=== PATIENT | female | born 1935 | race Caucasian/White ===

== ENCOUNTER → 2016-11-26 | Outpatient (REF) | payer OTHER, MEDICARE ==
[~2016-11-26] MED LIST: /AMLO25TA PO; AMILORIDE; AMILORIDE PO; AMLO10TA PO; ASPI325T PO; BACL10TA2 OR; BACT800T5 PO; BRIM0.2S OU; CICL0.7739 TOP; CIPR500T19 OR; CIPR500T89 PO; FLAG500T OR; FLAG500T PO; HCTZ PO; HYDROCHLOROTHIAZIDE; LEVO88TA3 PO; LEVO88TA4 OR; LEVO88TA4 PO; LEVOTHYROXINE PO; MAG-TAB PO; NAPR220T PO; NORC5TAB PO; NYSTPOW4 TOP; OTC POTASSIUM PO; TRAM50TA2 OR; TYLE325T5 PO; VENL1TAB35 PO; VITA100037 PO
[2016-11-26 12:30] LABS: ANION GAP 9 MEQ/L (8-16); BLOOD UREA NITROGEN 10 MG/DL (7-18); CALCIUM LEVEL 9.6 MG/DL (8.8-10.2); CARBON DIOXIDE LEVEL 29 MEQ/L (21-32); CHLORIDE LEVEL 104 MEQ/L (98-107); GLOMERULAR FILTRATION RATE > 60.0 (>39); GLUCOSE, FASTING 136 MG/DL (83-110); POTASSIUM SERUM 4.3 MEQ/L (3.5-5.1); SODIUM LEVEL 142 MEQ/L (136-145)
== END ==
LOC: M LABDRAW1 11:20
PROVIDERS: ATTEND Internal Medicine
DX: E03.9 Hypothyroidism, unspecified (principal); E55.9 Vitamin D deficiency, unspecified

== ENCOUNTER 2017-05-08 10:15 | Outpatient (RCR) | payer MEDICARE ==
[~2017-05-08 10:15] MED LIST changes: -VITA100037 PO; +VITA100067 PO
== END 2017-05-11 ==
LOC: M PT 10:15
PROVIDERS: ATTEND Student in an Organized Health Care Education/Training Program
DX: Z51.89 Encounter for other specified aftercare (principal); S46.819D Strain of other muscles, fascia and tendons at shoulder and upper arm level, unspecified arm, subsequent encounter; X58.XXXD Exposure to other specified factors, subsequent encounter; Y93.9 Activity, unspecified; Y92.9 Unspecified place or not applicable; Y99.8 Other external cause status
CPT/HCPCS: 97110; 97140; 97162; G8981; G8982

== ENCOUNTER → 2017-12-02 | Outpatient (CLI) | payer MEDICARE ==
[2017-12-02 16:30] LABS: ANION GAP 4 MEQ/L (8-16); BLOOD UREA NITROGEN 14 MG/DL (7-18); CARBON DIOXIDE LEVEL 30 MEQ/L (21-32); CHLORIDE LEVEL 107 MEQ/L (98-107); CREATININE FOR GFR 0.85 MG/DL (0.55-1.30); GLOMERULAR FILTRATION RATE > 60.0 (>32); GLUCOSE, FASTING 97 MG/DL (70-100); POTASSIUM SERUM 4.7 MEQ/L (3.5-5.1); SODIUM LEVEL 141 MEQ/L (136-145)
== END ==
LOC: M LAB 15:08
DX: R73.9 Hyperglycemia, unspecified (principal); E03.9 Hypothyroidism, unspecified
CPT/HCPCS: 84443

== ENCOUNTER 2018-08-14 20:34 | Emergency (ER) | payer MEDICARE ==
[~2018-08-14] VITALS: Ht 165.1 cm; Wt 72.7 kg
[2018-08-14 21:51] VITALS: BP 172/92
--- NOTE | 2018-08-15 07:51 | REP ---
Right wrist series: Two views. History: Injury. Findings: AP and lateral views of the right wrist show diffuse osteopenia. There is mild widening of the navicular lunate interval consistent with degeneration of the navicular lunate ligament. 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 There is also navicular multangular joint space narrowing. No traumatic abnormality is seen. Impression: No fracture noted. Electronically Signed by Benji Michel MD 08/15/2018 07:42 A
--- NOTE | 2018-08-15 07:52 | REP ---
Left knee series: Four views. History: Injury. Findings: Four views of the left knee demonstrate nonarticular spurring at the superior pole of the patella. There is mild osteoarthritic articular spurring as well on the lateral radiograph. Diffuse osteopenia. No fracture or joint effusion seen. No sunrise view is included. Impression: Diffuse osteopenia. Mild osteoarthritic changes. No fracture noted. Electronically Signed by Benji Michel MD 08/15/2018 09:25 A
== END 2018-08-14 22:08 | disposition home or self-care (01) ==
LOC: M ED 20:34
DX: S60.211A Contusion of right wrist, initial encounter (principal); S80.01XA Contusion of right knee, initial encounter; W19.XXXA Unspecified fall, initial encounter; Y92.410 Unspecified street and highway as the place of occurrence of the external cause; Y93.9 Activity, unspecified; Y99.9 Unspecified external cause status; E03.9 Hypothyroidism, unspecified; K57.32 Diverticulitis of large intestine without perforation or abscess without bleeding; G32.81 Cerebellar ataxia in diseases classified elsewhere; Z91.81 History of falling; M17.12 Unilateral primary osteoarthritis, left knee; M85.862 Other specified disorders of bone density and structure, left lower leg; Z79.899 Other long term (current) drug therapy; Z88.1 Allergy status to other antibiotic agents; Z88.5 Allergy status to narcotic agent; Z88.0 Allergy status to penicillin; Z91.013 Allergy to seafood

== ENCOUNTER → 2018-10-29 | Outpatient (REF) | payer MEDICARE ==
[2018-10-29 14:05] LABS: FREE T4 1.53 NG/DL (0.76-1.46); RHEUMATOID FACTOR QUANT < 10.0 IU/ML (<15.0); TOTAL PROTEIN 7.3 GM/DL (6.4-8.2)
[2018-10-29 14:06] LABS: FOLATE > 24.0 NG/ML; VITAMIN B12 LEVEL 422 PG/ML
[2018-10-29 14:26] LABS: HEMOGLOBIN A1c 5.7 %
[2018-10-30 10:32] LABS: ALBUMIN 3.74 GM/DL (3.29-5.55); ALBUMIN % 51.3 % (55.8-66.1); ALPHA-1-GLOBULIN % 4.2 % (2.9-4.9); ALPHA-1-GLOBULINS 0.31 GM/DL (0.17-0.41); ALPHA-2-GLOBULINS 0.84 GM/DL (0.42-0.99); ALPHA-2-GLOBULINS % 11.5 % (7.1-11.8); BETA-1-GLOBULINS 0.51 GM/DL (0.28-0.60); BETA-2-GLOBULINS 0.53 GM/DL (0.19-0.55); BETA-2-GLOBULINS % 7.3 % (3.2-6.5); GAMMA GLOBULIN % 18.7 % (11.1-18.8); GAMMA GLOBULINS 1.37 GM/DL (0.65-1.58)
[2018-11-02 00:07] LABS: ANTI DOUBLE STRAND-DNA AB <1 IU/mL (0-9); ANTINUCLEAR ANTIBODIES DIRECT Positive (Negative); RNP ANTIBODIES 2.5 AI (0.0-0.9); SJOGREN'S ANTI SS-A <0.2 AI (0.0-0.9); SJOGREN'S ANTI SS-B <0.2 AI (0.0-0.9); SMITH ANTIBODIES <0.2 AI (0.0-0.9); VITAMIN B1 LEVEL WHOLE BLOOD 140.7 nmol/L (66.5-200.0); VITAMIN E(ALPHA TOCOPHEROL) 13.7 mg/L (9.0-29.0); VITAMIN E(GAMMA TOCOPHEROL) 1.3 mg/L (0.5-4.9)
[2018-11-04 10:20] LABS: DRVV SCREEN 42.8 SEC
== END ==
LOC: M LABNEURO 09:34
PROVIDERS: ATTEND Psychiatry & Neurology Neurology
DX: M10.9 Gout, unspecified (principal); G62.9 Polyneuropathy, unspecified

== ENCOUNTER → 2019-04-21 | Outpatient (CLI) | payer MEDICARE ==
[~2019-04-21] MED LIST changes: -/AMLO25TA PO; +NORV2TAB PO
[2019-04-21 15:06] LABS: BLOOD UREA NITROGEN 14 MG/DL (7-18); CALCIUM LEVEL 9.5 MG/DL (8.8-10.2); CARBON DIOXIDE LEVEL 28 MEQ/L (21-32); CHLORIDE LEVEL 103 MEQ/L (98-107); CREATININE FOR GFR 0.88 MG/DL (0.55-1.30); FREE T4 1.37 NG/DL (0.76-1.46); GLOMERULAR FILTRATION RATE > 60.0 (>32); GLUCOSE, FASTING 77 MG/DL (70-100); POTASSIUM SERUM 4.5 MEQ/L (3.5-5.1); SODIUM LEVEL 138 MEQ/L (136-145); TOTAL 25(OH) VITAMIN D 30.7 NG/ML (30.0-100.0)
== END ==
LOC: M WUC 12:45
PROVIDERS: ATTEND Student in an Organized Health Care Education/Training Program
DX: E03.9 Hypothyroidism, unspecified (principal); I10 Essential (primary) hypertension; E55.9 Vitamin D deficiency, unspecified; Z79.899 Other long term (current) drug therapy

== ENCOUNTER → 2020-01-14 | Outpatient (CLI) | payer MEDICARE ==
[~2020-01-14] MED LIST changes: +HYDR25TA PO; +IBUP1TAB6 PO; +LEVO75TA4 PO
--- NOTE | 2020-01-14 11:39 | REP ---
RIGHT RIB SERIES: Four views of the right ribs performed. No fracture or bone lesion is seen. An accompanying PA view of the chest demonstrates stable bibasilar interstitial fibrosis. The heart is mildly enlarged. There is calcification of the thoracic aorta. IMPRESSION: No evidence of right rib fracture. Electronically Signed by Casa Peñaloza MD 01/14/2020 07:43 P
== END ==
LOC: M RAD 10:43
PROVIDERS: ATTEND Physician Assistant
DX: R07.81 Pleurodynia (principal); J84.10 Pulmonary fibrosis, unspecified; I70.0 Atherosclerosis of aorta

== ENCOUNTER → 2020-02-17 | Outpatient (REF) | payer MEDICARE ==
[2020-02-17 15:35] LABS: BLOOD UREA NITROGEN 13 MG/DL (7-18); CALCIUM LEVEL 9.5 MG/DL (8.8-10.2); CARBON DIOXIDE LEVEL 29 MEQ/L (21-32); CHLORIDE LEVEL 107 MEQ/L (98-107); CREATININE FOR GFR 0.92 MG/DL (0.55-1.30); GLOMERULAR FILTRATION RATE > 60.0 (>32); GLUCOSE, FASTING 81 MG/DL (70-100); MAGNESIUM LEVEL 2.2 MG/DL (1.8-2.4); PHOSPHORUS LEVEL 3.7 MG/DL (2.5-4.9); POTASSIUM SERUM 4.6 MEQ/L (3.5-5.1); SODIUM LEVEL 140 MEQ/L (136-145); THYROID STIMULATING HORMONE 0.896 uIU/ML (0.358-3.740)
== END ==
LOC: M SFHCPLAZ 11:57
PROVIDERS: ATTEND Family Medicine
DX: R29.6 Repeated falls (principal); Z79.899 Other long term (current) drug therapy

== ENCOUNTER 2020-04-02 13:32 | Emergency (ER) | payer MEDICARE ==
--- NOTE | 2020-04-02 14:17 | REPVR ---
PROCEDURE INFORMATION: Exam: CT Head Without Contrast Exam date and time: 04/02/2020 2:10 PM Age: 84 years old Clinical indication: Dizziness; Additional info: CVA - nursing interventions must not delay CT TECHNIQUE: Imaging protocol: Computed tomography of the head without contrast. Radiation optimization: All CT scans at this facility use at least one of these dose optimization techniques: automated exposure control; mA and/or kV adjustment per patient size (includes targeted exams where dose is matched to clinical indication); or iterative reconstruction. Other technique: STROKE PROTOCOL was implemented. COMPARISON: CT Head without contrast 07/21/2019 8:38 AM FINDINGS: Brain: The brain demonstrates diffuse volume loss. There is white matter hypodensity most consistent with chronic small vessel ischemic change. There are also small areas of low attenuation in the basal ganglia related chronic lacunar infarctions. Ventricles: The ventricles and CSF spaces are proportionately enlarged. Bones/joints: No acute fracture. Sinuses: Visualized sinuses are unremarkable. No fluid levels. Mastoid air cells: Visualized mastoid air cells are well aerated. Vasculature: There is atherosclerotic disease involving the vertebral basilar system and cavernous ICAs. Soft tissues: Unremarkable. IMPRESSION: 1. Atrophy and the sequela prior small vessel ischemia. 2. No acute intracranial abnormality ASSESSMENT: ASPECTS ([place] Stroke Program Early CT Score) is 10. Electronically signed by: Rohan Davis On 04/02/2020 14:17:32 PM
--- NOTE | 2020-04-02 14:57 | REPVR ---
PROCEDURE INFORMATION: Exam: XR Chest, 1 View Exam date and time: 04/02/2020 2:15 PM Age: 84 years old Clinical indication: Shortness of breath; Additional info: CVA TECHNIQUE: Imaging protocol: XR of the chest Views: 1 view. COMPARISON: CR Ribs uni W-PA CHEST ONLY 01/14/2020 11:07 AM FINDINGS: Lungs: There is prominence of peripheral interstitial markings similar to previous examination consistent interstitial lung disease. There is no focal infiltrates. Pleural space: Unremarkable. No pleural effusion. No pneumothorax. Heart/Mediastinum: Unremarkable. No cardiomegaly. Bones/joints: Unremarkable. Intraperitoneal space: Surgical clips are seen within right upper quadrant. IMPRESSION: Interstitial lung disease. Electronically signed by: Elmer Joe On 04/02/2020 14:57:56 PM
[2020-04-02 15:19] LABS: BASO # 0.1 10^3/uL (0.0-0.2); BASO % 0.5 % (0.0-1.0); EOS # 0.2 10^3/uL (0.0-0.5); EOS % 2.3 % (0.0-3.0); HEMATOCRIT 38.7 % (36.0-47.0); HEMOGLOBIN 12.6 g/dl (12.0-15.5); LYMPH # 2.1 10^3/uL (1.5-5.0); LYMPH % 23.1 % (24.0-44.0); MEAN CORPUSCULAR HEMOGLOBIN 28.9 pg (27.0-33.0); MEAN CORPUSCULAR HGB CONC 32.6 g/dl (32.0-36.5); MEAN CORPUSCULAR VOLUME 88.8 fl (80.0-96.0); MONO % 11.2 % (0.0-5.0); NEUTROPHILS # 5.8 10^3/uL (1.5-8.5); NEUTROPHILS % 62.8 % (36.0-66.0); PLATELET COUNT, AUTOMATED 274 10^3/uL (150-450); RED BLOOD COUNT 4.36 10^6/uL (4.00-5.40); WHITE BLOOD COUNT 9.2 10^3/uL (4.0-10.0)
[2020-04-02 15:26] LABS: INR 0.96
[2020-04-02 15:27] LABS: PARTIAL THROMBOPLASTIN TIME 23.7 SECONDS (25.0-38.4)
[2020-04-02 15:53] LABS: ALBUMIN 3.2 GM/DL (3.2-5.2); ALT/SGPT 13 U/L (12-78); BILIRUBIN,DIRECT 0.1 MG/DL (0.0-0.2); BILIRUBIN,TOTAL 0.4 MG/DL (0.2-1.0); BLOOD UREA NITROGEN 13 MG/DL (7-18); CALCIUM LEVEL 9.2 MG/DL (8.8-10.2); CARBON DIOXIDE LEVEL 30 MEQ/L (21-32); CHLORIDE LEVEL 107 MEQ/L (98-107); CK-MB VALUE MASS 1.2 NG/ML (<3.6); CPK CREATINE PHOSPHOKINASE 67 U/L (26-192); CREATININE FOR GFR 0.83 MG/DL (0.55-1.30); GLOMERULAR FILTRATION RATE > 60.0 (>32); GLUCOSE, FASTING 82 MG/DL (70-100); MB/CK RELATIVE INDEX 1.79 (< OR =4); POTASSIUM SERUM 3.9 MEQ/L (3.5-5.1); SODIUM LEVEL 138 MEQ/L (136-145); THYROID STIMULATING HORMONE 0.586 uIU/ML (0.358-3.740); TOTAL PROTEIN 6.9 GM/DL (6.4-8.2); TROPONIN I < 0.02 NG/ML (< 0.10)
[2020-04-02] MEDS ORDERED: ASPI-1 PO (16:09)
[2020-04-02] MEDS ORDERED: ASPIRIN 325 MG TAB PO ONE (16:15)
[2020-04-02 16:33] VITALS: BP 168/78
== END 2020-04-02 16:37 | disposition home or self-care (01) ==
LOC: EDBD 13:32 → M ED 13:32
DX: G45.9 Transient cerebral ischemic attack, unspecified (principal); J84.9 Interstitial pulmonary disease, unspecified; E03.9 Hypothyroidism, unspecified; Z86.73 Personal history of transient ischemic attack (TIA), and cerebral infarction without residual deficits; Z79.82 Long term (current) use of aspirin; Z79.899 Other long term (current) drug therapy

== ENCOUNTER 2020-08-24 17:23 | Inpatient (IN) | payer MEDICARE ==
[~2020-08-24] VITALS: Ht 165.1 cm; Wt 69.8 kg
[~2020-08-24 17:23] MED LIST changes: +ASPI-1 PO
--- NOTE | 2020-08-24 18:24 | REPVR ---
PROCEDURE INFORMATION: Exam: CT Head Without Contrast Exam date and time: 08/24/2020 6:15 PM Age: 84 years old Clinical indication: Other: Neuro symptoms TECHNIQUE: Imaging protocol: Computed tomography of the head without contrast. Radiation optimization: All CT scans at this facility use at least one of these dose optimization techniques: automated exposure control; mA and/or kV adjustment per patient size (includes targeted exams where dose is matched to clinical indication); or iterative reconstruction. Other technique: STROKE PROTOCOL was implemented. COMPARISON: CT Head without contrast 04/02/2020 2:00 PM FINDINGS: Brain: There is no acute cortical infarction, intracranial hemorrhage or mass.There is moderate diffuse heterogeneity of the white matter, most consistent with microangiopathy. Probable prior lacunar infarctions right external capsule and anterior limb of left internal capsule. Cerebral ventricles: The ventricles appear enlarged, but not out of proportion to the degree of parenchymal volume loss. Bones/joints: Unremarkable. No acute fracture. Paranasal sinuses: Visualized sinuses are unremarkable. No fluid levels. Mastoid air cells: Visualized mastoid air cells are well aerated. Vasculature: Atherosclerosis. Soft tissues: Unremarkable. IMPRESSION: No acute intracranial findings. ASSESSMENT: ASPECTS ([place] Stroke Program Early CT Score) is 10. Electronically signed by: Lay Aguila On 08/24/2020 18:24:00 PM
--- NOTE | 2020-08-24 19:04 | REP ---
INDICATION: TIA. COMPARISON: 04/02/2020. TECHNIQUE: SINGLE PORTABLE AP VIEW OF THE CHEST WAS PERFORMED. FINDINGS: Diffuse interstitial fibrotic change appears stable. There is no definite superimposed acute infiltrate. The heart appears to be at the upper limits of normal in size. There is calcification of the thoracic aorta. The mediastinal silhouette is unchanged. IMPRESSION: Stable chronic interstitial changes. No definite superimposed acute infiltrate. <Electronically signed by Casa Peñaloza > 08/24/20 [id number]
[2020-08-24 19:05] LABS: BASO # 0.1 10^3/uL (0.0-0.2); BASO % 0.6 % (0.0-1.0); EOS # 0.3 10^3/uL (0.0-0.5); EOS % 2.7 % (0.0-3.0); HEMATOCRIT 38.8 % (36.0-47.0); HEMOGLOBIN 12.4 g/dl (12.0-15.5); LYMPH # 2.4 10^3/uL (1.5-5.0); MEAN CORPUSCULAR HEMOGLOBIN 29.1 pg (27.0-33.0); MEAN CORPUSCULAR VOLUME 91.1 fl (80.0-96.0); MONO % 10.4 % (0.0-5.0); NEUTROPHILS # 5.9 10^3/uL (1.5-8.5); NEUTROPHILS % 61.1 % (36.0-66.0); PLATELET COUNT, AUTOMATED 273 10^3/uL (150-450); RED BLOOD COUNT 4.26 10^6/uL (4.00-5.40); WHITE BLOOD COUNT 9.6 10^3/uL (4.0-10.0)
[2020-08-24 19:23] LABS: PROTHROMBIN TIME 13.4 SECONDS (12.5-14.3)
[2020-08-24 19:24] LABS: PARTIAL THROMBOPLASTIN TIME 26.2 SECONDS (24.2-38.5)
[2020-08-24 19:33] LABS: BLOOD UREA NITROGEN 18 MG/DL (7-18); CALCIUM LEVEL 9.3 MG/DL (8.8-10.2); CARBON DIOXIDE LEVEL 27 MEQ/L (21-32); CHLORIDE LEVEL 107 MEQ/L (98-107); CK-MB VALUE MASS 1.4 NG/ML (<3.6); CPK CREATINE PHOSPHOKINASE 55 U/L (26-192); GLOMERULAR FILTRATION RATE > 60.0 (>32); GLUCOSE, FASTING 88 MG/DL (70-100); MB/CK RELATIVE INDEX 2.55 (< OR =4); SODIUM LEVEL 139 MEQ/L (136-145); TROPONIN I < 0.02 NG/ML (< 0.10)
[2020-08-24] MEDS ORDERED: ASPI-559 PO (19:44)
--- OUTSIDE RECORDS SUMMARY | 2020-08-24 20:48 | CCD ---
Author Author [facility] Organization [facility] Address Unknown Phone Unavailable Care Team Providers Care Child And Family Services Worker Name Role Phone Micheline Cr Unavailable PROBLEMS Type Condition ICD9-CM Code [id number] Code Onset Dates Condition S tatus SNOMED Code Notes Problem Hypothyroidism, unspecified E03.9 Active 4093 0008 Problem Vitamin D deficiency, unspecified E55.9 Active 64741690 Problem Decreased independence with activities of daily living Z65.8 Active 724237351 Problem Essential (primary) hypertension I10 Active 45424664 Problem Recurrent syncope R55 Active 642141431 Problem Esophageal dysphagia R13.10 Active 16389851 Problem Frequent falls R29.6 Active 804251895 Problem Other secondary kyphosis, 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 Active 003709465 Problem Multilevel degenerative disc disease M53.9 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 64222715 Problem Osteopenia of multiple sites M85.89 Active 312 491908 Problem Decreased hearing, unspecified laterality H91.90 Active 597284494 Problem Chronic fatigue R53.82 Active 27862347 Problem Reflux esophagitis K21.0 Active 534541326 Problem Diverticulitis K57.92 Active 263666378 Problem TIA (transient ischemic attack) G45.9 Active 018957935 Problem Word finding difficulty R47.89 Active 01353798 6 Problem Driving safety issue Z91.89 Active 262943948 Problem Lichen sclerosus of female genitalia N90.4 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 275143656 Problem Pain in thoracic spine M54.6 Active 674392050 528713 Problem Dementia without behavioral disturbance, unspeci fied dementia type F03.90 Active 29654466 Problem Other chronic pain G89.29 Active 91684820 Problem Age-related osteoporosis without current pathological fracture M81.0 Active 072862144 Problem Patient refused evaluation or treatment Z53.20 Active 830092936 Problem 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 Ac tive 881669132 Problem Need for emotional support R45.89 Active 30331 6001 Problem Vaginal atrophy N95.2 Active 783534327 ALLERGIES Allergen (clinical drug ingredient) Drug/Non Drug Allergy do cumented on EMR Reaction Allergy Type Onset Date Status Shellfish Anaphylaxis Non Drug Allergy Active ciprofloxacin Cipro([facility] Code:[address]-90) memory loss, dizzy Drug A llergy Active Penicillin (For Allergies Use Only) Anaphylaxis Drug Aller gy Active codeine Codeine Sulfate([facility] Code:[address]-12) Confusion Drug Al lergy Active ENCOUNTERS from 1937 to 2020-08-01 Encounter Location Date Provider Diagnosis [address] [address] Jul, Micheline Shaye Vaginal atrophy N95.2 IMMUNIZATIONS Vaccine Route Administration Date Status Influenza (High Dose 65 & up) Unknown Apr 21, 2018 Ad ministered Influenza (High Dose 65 & up) Unknown May 27, 2017 Ad ministered Influenza (6mo & up) Fluzone Unknown Mar 16, 2014 Adm inistered Influenza (6mo & up) Fluzone Unknown Apr 21, 2013 Adm inistered zz*Influenza Preservative Free (36 months & up) Unknown Jul 03, 2017 Pending zz*Influenza Preservative Free (36 months & up) Unknown May 27, 2017 Pending zz*Influenza Preservative Free (36 months & up) Unknown May 27, 2017 Pending SOCIAL HISTORY Tobacco Use: Social History Observation Description Date Details (start date - stop date) Never Smoker Sex Assigned At : Social History Observation Description Sex Assigned At Unknown Audit Question Answer Notes Total Score: 0 Interpretation: Alcohol Education Drug and Alcohol Question Answer Notes Total Score: 0 Interpretation: No problems reported BMI Care Goal Follow-Up Question Answer Notes Above Normal BMI Follow-Up Giving encouragement to exercise Tobacco Use: Question Answer Notes Are you a: never smoker never smoker REASON FOR REFERRAL No Information VITAL SIGNS No information MEDICATIONS Medication SIG (Take, Route, Frequency, Duration) Notes Start Da te End Date Status Levothyroxine Sodium 75 MCG 1 tablet Orally Once a day 30 minutes before breakfast (NEEDS F/U APPT FOR MORE REFILLS) for 90 days Active Premarin 0.625 MG/GM 0.5g in vaginal and vaulva r egion Vaginal 21 days, off for 7 days for 21 day(s) Jul, Active Crestor 40 MG 1 tablet Orally Once a day for 30 day(s) May, Not-Taking Pantoprazole Sodium 40 MG 1 tablet Orally Once a day for 30 days Not-Taking Ankle Brace Bqmkly-[id number]-Keg - as directed On Right Ankle Daily for 4 weeks for 30 day(s) Apr, Active Acetaminophen 500 MG 1-2 tablet as needed Orally every 6 hrs Nov, Active Ibuprofen 600 MG 1 tablet with food or milk a s needed Orally Three times a day for 30 Days Jan, Active Scooter Chair as directed _ Daily for 9999 days Jan, Active Viactiv Flavor Glides 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 Aspirin 325 MG 1 tablet Orally Once a day for 30 day(s) Active Clobetasol Propionate 0.05 % 1 application Externally Twice a day, may decreased to daily use if symptoms improvement for 21 day(s) Jul, Active Hydrocortisone 2.5 % 1 application to affected ar ea: apply a thin film Externally Twice a day for 14 day(s) Apr, Active PROCEDURES No Information RESULTS No Results REASON FOR VISIT scripts MEDICAL (GENERAL) HISTORY Type Description Date Medical History Hypothyroidism Medical History Chronic back pain- Medical History Hx of Multiple Falls, Neurol ogic Gait Dysfunction/Cerebellar Dysfunction Medical History diverticulitis- resolved (12/2014) Medical History Pneumovax 2010 Medical History Refuses colonoscopy and mammogram Medical History Vitamin D Deficiency Medical History Reflux Esophagitis Medical History History of falling, presenting hazards t o health Medical History Neurologic gait dysfunction Surgical History Tonsillectomy Surgical History Appendectomy Surgical History Cholecystectomy Surgical History Hysterectomy d/t uterine cancer 1964 Surgical History cataracts, bilaterally and 03/2014 Hospitalization History diveritculitis 04/2012 Hospitalization History diverticulitis 11/15/13-11/19/13 Hospitalization History diverticulitis 12/10/2014 Hospitalization History fall Goals Section No Information Health Concerns No Information MEDICAL EQUIPMENT No Information MENTAL STATUS No Information FUNCTIONAL STATUS No Information ASSESSMENTS Encounter Date Diagnosis Assessment Notes Treatment Notes Treatm ent Clinical Notes Jul, Vaginal atrophy (ICD-10 - N95.2) PLAN OF TREATMENT Medication Medication Name Sig Start Date Stop Date Premarin 0.625 MG/GM 0.5g in vaginal and vaulva r egion Vaginal 21 days, off for 7 days for 21 day(s) Jul, Clobetasol Propionate 0.05 % 1 application Externally Twice a day, may decreased to daily use if symptoms improvement for 21 day(s) Jul, Next Appt Details Provider Name:Micheline Cr, 2020-08-16 09 :30:00 AM, [address], [place], [place], [id number], Insurance Providers Payer Name Payer Address Payer Phone Insured Name Patient Relati onship to Insured Coverage Start Date Coverage End Date [employer]NA MEDICARE [employer] [address] [facility] [id number] [employer] self
--- OUTSIDE RECORDS SUMMARY | 2020-08-24 20:48 | CCD ---
Author Author [facility] Organization [facility] Address Unknown Phone Unavailable Care Team Providers Care Driver Sales Name Role Phone Micheline Cr Unavailable PROBLEMS Type Condition ICD9-CM Code MDA77-MM Code Onset Dates Condition S tatus SNOMED Code Notes Problem Hypothyroidism, unspecified E03.9 Active 4093 0008 Problem Vitamin D deficiency, unspecified E55.9 Active 48315566 Problem Decreased independence with activities of daily living Z65.8 Active 976125726 Problem Essential (primary) hypertension I10 Active 79020178 Problem Recurrent syncope R55 Active 453911589 Problem Esophageal dysphagia R13.10 Active 60962418 Problem Frequent falls R29.6 Active 043041399 Problem Other secondary kyphosis, 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 Active 735781032 Problem Multilevel degenerative disc disease M53.9 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 77771661 Problem Osteopenia of multiple sites M85.89 Active 312 580686 Problem Decreased hearing, unspecified laterality H91.90 Active 117255405 Problem Chronic fatigue R53.82 Active 64108359 Problem Reflux esophagitis K21.0 Active 125177960 Problem Diverticulitis K57.92 Active 961303413 Problem TIA (transient ischemic attack) G45.9 Active 483083040 Problem Word finding difficulty R47.89 Active 06832935 6 Problem Driving safety issue Z91.89 Active 132729240 Problem Lichen sclerosus of female genitalia N90.4 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 337336884 Problem Pain in thoracic spine M54.6 Active 583221046 297837 Problem Dementia without behavioral disturbance, unspeci fied dementia type F03.90 Active 99799871 Problem Other chronic pain G89.29 Active 22907324 Problem Age-related osteoporosis without current pathological fracture M81.0 Active 481826125 Problem Patient refused evaluation or treatment Z53.20 Active 444232154 Problem 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 Ac tive 049215506 Problem Need for emotional support R45.89 Active 83068 6001 Problem Vaginal atrophy N95.2 Active 608212441 ALLERGIES Allergen (clinical drug ingredient) Drug/Non Drug Allergy do cumented on EMR Reaction Allergy Type Onset Date Status Shellfish Anaphylaxis Non Drug Allergy Active ciprofloxacin Cipro([facility] Code:[address]-31) memory loss, dizzy Drug A llergy Active Penicillin (For Allergies Use Only) Anaphylaxis Drug Aller gy Active codeine Codeine Sulfate([facility] Code:[address]-75) Confusion Drug Al lergy Active ENCOUNTERS from 1937 to 2020-08-10 Encounter Location Date Provider Diagnosis [facility] Resident [address] [place] [address] Jul, Micheline Cr Lichen sclerosus of female g enitalia N90.4 and Need for emotional support R45.89 IMMUNIZATIONS Vaccine Route Administration Date Status Influenza [...] REASON FOR REFERRAL No Information VITAL SIGNS Weight 156.2 lbs Jul, Height 65 in Jul, BMI 25.99 kg/m2 Jul, Heart Rate 80 /min Jul, Respiratory Rate 18 /min Jul, Temperature 98.0 degrees Fahrenheit Jul, Oximetry 96 Jul, Blood pressure systolic 146 mm Hg Jul, Blood pressure diastolic 82 mm Hg Jul, MEDICATIONS Medication SIG (Take, Route, Frequency, Duration) Notes Start Da te End Date Status Crestor 40 MG 1 tablet Orally Once a day for 30 day(s) May, Not-Taking Ankle Brace Dpxiys-sh-Kfe - as directed On Right Ankle Daily for 4 weeks for 30 day(s) Apr, Active Clobetasol Propionate 0.05 % 1 application Externally Twice a day, may decreased to daily use if symptoms improvement for 21 day(s) Jul, Active Acetaminophen 500 MG 1-2 tablet as needed Orally every 6 hrs Nov, Active Scooter Chair as directed _ Daily for 9999 days Jan, 20 Active Aspirin 325 MG 1 tablet Orally Once a day for 30 day(s) Active Viactiv Flavor Glides 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 Hydrocortisone 2.5 % 1 application to affected ar ea: apply a thin film Externally Twice a day for 14 day(s) Apr, Active Estradiol 0.1 MG/GM as directed applied in the v ulva and perineum area Vaginally apply once daily, two times in a week for 14 day(s) Jul, Active Pantoprazole Sodium 40 MG 1 tablet Orally Once a day for 30 days Not-Taking Premarin 0.625 MG/GM 0.5g in vaginal and vaulva r egion Vaginal 21 days, off for 7 days for 21 day(s) Jul, Active Levothyroxine Sodium 75 MCG 1 tablet Orally Once a day 30 minutes before breakfast (NEEDS F/U APPT FOR MORE REFILLS) for 90 days Active Ibuprofen 600 MG 1 tablet with food or milk a s needed Orally Three times a day for 30 Days Jan, Active PROCEDURES No Information RESULTS No Results REASON FOR VISIT follow up/paperwork for emptional support animal that we had received MEDICAL (GENERAL) HISTORY Type Description Date Medical [...] Treatment Notes Treatm ent Clinical Notes Jul, Lichen sclerosus of female genitalia (ICD-10 - N 90.4) External vulva/perineum inspection was done at the presence of the security test engineer. Pt's vulva and perineum lesions appeared to be mainly to be due to lichen sclerosus, and will start clobetasol ointment. Although there might be a component of atrophic vaginitis as well, given patient's history of TIA/CVA, will not start estrogen cream at this time for safety concerns. Patient has significant tenderness with light touch to vulva and perineum region, and she would like to hold off on pelvic/speculum/Bi-manual exam until next visit. Discussed with patient if symptoms worsen, she should call the clinic or seek immediate medical call, pt verbalized agreement. Jul, Need for emotional support (ICD-10 - R45.89) Received paperwork from [facility] for emotional support cat. Patient reported she never requested a emotional support cat, but that she has a dog who is initially a emotional support dog for 10.5 years. Emotional support paperwork for exisitiong dog was filled out for reasons of "company" per patient. Paperwork was filled out and to be faxed to [facility] PLAN OF TREATMENT Medication Medication Name Sig Start Date Stop Date Premarin 0.625 MG/GM 0.5g in vaginal and vaulva r egion Vaginal 21 days, off for 7 days for 21 day(s) Jul, Clobetasol Propionate 0.05 % 1 application Externally Twice a day, may decreased to daily use if symptoms improvement for 21 day(s) Jul, Estradiol 0.1 MG/GM as directed applied in the v ulva and perineum area Vaginally apply once daily, two times in a week for 14 day(s) Jul, Treatment Notes Assessment Notes Clinical Notes Lichen sclerosus of female genitalia Ext ernal vulva/perineum inspection was done at the presence of the security test engineer. Pt's vulva and perineum lesions appeared to be mainly to be due to lichen sclerosus, and will start clobetasol ointment. Although there might be a component of atrophic vaginitis as well, given patient's history of TIA/CVA, will not start estrogen cream at this time for safety concerns. Patient has significant tenderness with light touch to vulva and perineum region, and she would like to hold off on pelvic/speculum/Bi-manual exam until next visit. Discussed with patient if symptoms worsen, she should call the clinic or seek immediate medical call, pt verbalized agreement. Need for emotional support Received chung bah from [facility] for emotional support cat. Patient reported she never requested a emotional support cat, but that she has a dog who is initially a emotional support dog for 10.5 years. Emotional support paperwork for exisitiong dog was filled out for reasons of "company" per patient. Paperwork was filled out and to be faxed to [facility] Next Appt Details 2 Months Reason: Provider Name:Micheline Shaye, 2020-08-16 09 :45:00 AM, [address] [place], [address], Insurance Providers Payer Name Payer Address Payer Phone Insured Name Patient Relati onship to Insured Coverage Start Date Coverage End Date A[employer]NA MEDICARE [employer] [address] [facility] [id number] [employer] self
--- OUTSIDE RECORDS SUMMARY | 2020-08-24 20:48 | CCD ---
Author Author [facility] Organization [facility] Address Unknown Phone Unavailable Care Team Providers Care Porcelain Enamel Sprayer Name Role Phone Micheline Cr Unavailable PROBLEMS Type Condition ICD9-CM Code [id number] Code Onset Dates Condition S tatus SNOMED Code Notes Problem Hypothyroidism, unspecified E03.9 Active 4093 0008 Problem Vitamin D deficiency, unspecified E55.9 Active 35495674 Problem Decreased independence with activities of daily living Z65.8 Active 139097599 Problem Essential (primary) hypertension I10 Active 79029876 Problem Recurrent syncope R55 Active 901039929 Problem Esophageal dysphagia R13.10 Active 53229638 Problem Frequent falls R29.6 Active 575145244 Problem Other secondary kyphosis, 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 Active 749575753 Problem Multilevel degenerative disc disease M53.9 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 54924634 Problem Osteopenia of multiple sites M85.89 Active 312 547755 Problem Decreased hearing, unspecified laterality H91.90 Active 659321808 Problem Chronic fatigue R53.82 Active 57531764 Problem Reflux esophagitis K21.0 Active 801785054 Problem Diverticulitis K57.92 Active 647994282 Problem TIA (transient ischemic attack) G45.9 Active 516471592 Problem Word finding difficulty R47.89 Active 53653615 6 Problem Driving safety issue Z91.89 Active 350447646 Problem Lichen sclerosus of female genitalia N90.4 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 855645811 Problem Pain in thoracic spine M54.6 Active 152336024 202191 Problem Dementia without behavioral disturbance, unspeci fied dementia type F03.90 Active 74694321 Problem Other chronic pain G89.29 Active 90484830 Problem Age-related osteoporosis without current pathological fracture M81.0 Active 970511437 Problem Patient refused evaluation or treatment Z53.20 Active 554082223 Problem 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 Ac tive 629226569 Problem Need for emotional support R45.89 Active 37375 6001 Problem Vaginal atrophy N95.2 Active 005243636 ALLERGIES Allergen (clinical drug ingredient) Drug/Non Drug Allergy do cumented on EMR Reaction Allergy Type Onset Date Status Shellfish Anaphylaxis Non Drug Allergy Active ciprofloxacin Cipro([facility] Code:[address]-90) memory loss, dizzy Drug A llergy Active Penicillin (For Allergies Use Only) Anaphylaxis Drug Aller gy Active codeine Codeine Sulfate([facility] Code:[address]-10) Confusion Drug Al lergy Active ENCOUNTERS from 1937 to 2020-08-04 Encounter Location Date Provider Diagnosis [address] [address] Jul, Micheline Cr Perineal irritation in female L98.9 IMMUNIZATIONS Vaccine Route Administration Date Status Influenza [...] for 30 day(s) May, Not-Taking Ankle Brace Aicnul-fc-Ypn - as directed On Right Ankle Daily [...] Information RESULTS No Results REASON FOR VISIT Vaginal itch MEDICAL (GENERAL) HISTORY Type Description Date Medical [...] Treatment Notes Treatm ent Clinical Notes Jul, Perineal irritation in female (ICD-10 - L98.9) Lichen sclerosis vs atrophic vaginitis. Pt not responding to clobetasol ointment. Start estradiol cream. Pt reported significant pain in the perineum area with mild bleeding. Refer to [facility] for further evaluation. PLAN OF TREATMENT Medication Medication Name Sig [...] Jul, Treatment Notes Assessment Notes Clinical Notes Perineal irritation in female Lichen scl erosis vs atrophic vaginitis. Pt not responding to clobetasol ointment. Start estradiol cream. Pt reported significant pain in the perineum area with mild bleeding. Refer to [facility] for further evaluation. Next Appt Details Provider Name:Micheline Cr, 2020-08-16 09 :30:00 AM, [address] [place] [address], [address], Insurance Providers Payer Name Payer Address Payer Phone Insured Name Patient Relati onship to Insured Coverage Start Date Coverage End Date AETNA MEDICARE AETNA [employer] INSURANCE [employer] [address] [facility] [phone] ASTER PABLO self
--- OUTSIDE RECORDS SUMMARY | 2020-08-24 20:48 | CCD ---
Author Author [facility] Organization [facility] Address Unknown Phone Unavailable Care Team Providers Care Chlorine Cells Operator Name Role Phone Micheline Cr Unavailable PROBLEMS Type Condition ICD9-CM Code [id number] Code Onset Dates Condition S tatus SNOMED Code Notes Problem Hypothyroidism, unspecified E03.9 Active 4093 0008 Problem Vitamin D deficiency, unspecified E55.9 Active 70884443 Problem Decreased independence with activities of daily living Z65.8 Active 792111995 Problem Essential (primary) hypertension I10 Active 32141638 Problem Recurrent syncope R55 Active 895960192 Problem Esophageal dysphagia R13.10 Active 58007876 Problem Frequent falls R29.6 Active 772929477 Problem Other secondary kyphosis, 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 Active 600364278 Problem Multilevel degenerative disc disease M53.9 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 00868621 Problem Osteopenia of multiple sites M85.89 Active 312 994350 Problem Decreased hearing, unspecified laterality H91.90 Active 769771508 Problem Chronic fatigue R53.82 Active 28152634 Problem Reflux esophagitis K21.0 Active 690937842 Problem Diverticulitis K57.92 Active 249609705 Problem TIA (transient ischemic attack) G45.9 Active 619089263 Problem Word finding difficulty R47.89 Active 41570185 6 Problem Driving safety issue Z91.89 Active 354435690 Problem Lichen sclerosus of female genitalia N90.4 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 827925731 Problem Pain in thoracic spine M54.6 Active 082578968 113377 Problem Dementia without behavioral disturbance, unspeci fied dementia type F03.90 Active 19774334 Problem Other chronic pain G89.29 Active 41288395 Problem Age-related osteoporosis without current pathological fracture M81.0 Active 618124563 Problem Patient refused evaluation or treatment Z53.20 Active 227870634 Problem 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 Ac tive 400426478 Problem Need for emotional support R45.89 Active 44785 6001 Problem Vaginal atrophy N95.2 Active 806287377 ALLERGIES Allergen (clinical drug ingredient) Drug/Non Drug Allergy do cumented on EMR Reaction Allergy Type Onset Date Status Shellfish Anaphylaxis Non Drug Allergy Active ciprofloxacin Cipro([facility] Code:[address]-94) memory loss, dizzy Drug A llergy Active Penicillin (For Allergies Use Only) Anaphylaxis Drug Aller gy Active codeine Codeine Sulfate([facility] Code:[address]-88) Confusion Drug Al lergy Active ENCOUNTERS from 1937 to 2020-08-03 Encounter [place] [address] Jul, Micheline Cr IMMUNIZATIONS Vaccine Route Administration Date Status Influenza [...] day for 30 days Not-Taking Ankle Brace Pqrnhl-zm-Clb - as directed On Right Ankle Daily [...] Information RESULTS No Results REASON FOR VISIT Referral-Dr Joshua MEDICAL (GENERAL) HISTORY Type Description Date Medical [...] No Information FUNCTIONAL STATUS No Information ASSESSMENTS No Information PLAN OF TREATMENT Medication Medication Name Sig [...] Name:Micheline Cr, 2020-08-16 09 :30:00 AM, [address] [place], [address], Insurance Providers Payer Name Payer Address Payer Phone Insured Name Patient Relati onship to Insured Coverage Start Date Coverage End Date AETNA MEDICARE AETNA [employer] INSURANCE [facility] [address] [facility] [id number] ASTER PABLO self
--- OUTSIDE RECORDS SUMMARY | 2020-08-24 20:49 | CCD ---
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 Active 515906896 Problem Pain in thoracic spine M54.6 Active 620262331 335309 Problem Osteopenia of multiple sites M85.89 Active 312 414664 Problem Age-related osteoporosis without current pathological fracture M81.0 Active 809438409 Problem Multilevel degenerative disc disease M53.9 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 94694443 Problem Frequent falls R29.6 Active 112710265 Problem Diverticulitis K57.92 Active 157032096 Problem Reflux esophagitis K21.0 Active 385424244 Problem Esophageal dysphagia R13.10 Active 54776445 Problem Patient refused evaluation or treatment Z53.20 Active 264362903 Problem Decreased hearing, unspecified laterality H91.90 Active 308698365 Problem Hypothyroidism, unspecified E03.9 Active 4093 0008 Problem TIA (transient ischemic attack) G45.9 Active 199032500 Problem Chronic fatigue R53.82 Active 65115353 Problem Vitamin D deficiency, unspecified E55.9 Active 23124106 Problem Essential (primary) hypertension I10 Active 89330224 Problem Recurrent syncope R55 Active 618169437 Problem 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 Ac tive 340037951 Problem Word finding difficulty R47.89 Active 15478796 6 Problem Driving safety issue Z91.89 Active 805641598 ALLERGIES Allergen (clinical drug ingredient) Drug/Non Drug Allergy do cumented on EMR Reaction Allergy Type Onset Date Status Shellfish Anaphylaxis Non Drug Allergy Active ciprofloxacin Cipro([facility] Code:[address]-52) memory loss, dizzy Drug A llergy Active Penicillin (For Allergies Use Only) Anaphylaxis Drug Aller gy Active codeine Codeine Sulfate([facility] Code:[address]-02) Confusion Drug Al lergy Active ENCOUNTERS from 1937 to 2020-06-28 Encounter Location Date Provider Diagnosis [address] [address] Jun, Micheline Cr Hypothyroidism, unspecified E03.9 IMMUNIZATIONS Vaccine Route Administration Date Status Influenza [...] Notes Start Da te End Date Status Ibuprofen 600 MG 1 tablet with food or milk a s needed Orally Three times a day for 30 Days Jan, Active Scooter Chair as directed _ Daily for 9999 days Jan, Active Ankle Brace Xmzzhs-gs-Ysy - as directed On Right Ankle Daily for 4 weeks for 30 day(s) Apr, Active Crestor 40 MG 1 tablet Orally Once a day for 30 day(s) May, Active Hydrocortisone 2.5 % 1 application to affected ar ea: apply a thin film Externally Twice a day for 14 day(s) Apr, Active Viactiv Flavor Glides 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 Pantoprazole Sodium 40 MG 1 tablet Orally Once a day for 30 days Not-Taking Levothyroxine Sodium 75 MCG 1 tablet Orally Once a day 30 minutes before breakfast (NEEDS F/U APPT FOR MORE REFILLS) for 90 days Active Acetaminophen 500 MG 1-2 tablet as needed Orally every 6 hrs Nov, Active PROCEDURES No Information RESULTS No Results REASON FOR VISIT Levothyroxine Sodium 75 MCG Tablet 90 day supply MEDICAL (GENERAL) HISTORY Type Description Date Medical [...] Notes Treatment Notes Treatm ent Clinical Notes Jun, Hypothyroidism, unspecified (ICD-10 - E03.9) PLAN OF TREATMENT Medication Medication Name Sig Start Date Stop Date Levothyroxine Sodium 75 MCG 1 tablet Orally Once a day 30 minutes before breakfast (NEEDS F/U APPT FOR MORE REFILLS) for 90 days Insurance Providers Payer Name Payer Address Payer Phone Insured Name Patient Relati onship to Insured Coverage Start Date Coverage End Date AETNA MEDICARE AETNA [employer] [address] [facility] [phone] ASTER PABLO self
--- OUTSIDE RECORDS SUMMARY | 2020-08-24 20:49 | CCD ---
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 Active 259768147 Problem Pain in thoracic spine M54.6 Active 608897488 941791 Problem Osteopenia of multiple sites M85.89 Active 312 335072 Problem Age-related osteoporosis without current pathological fracture M81.0 Active 334528102 Problem Multilevel degenerative disc disease M53.9 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 93904624 Problem Frequent falls R29.6 Active 347745127 Problem Diverticulitis K57.92 Active 318304414 Problem Reflux esophagitis K21.0 Active 162182502 Problem Esophageal dysphagia R13.10 Active 53828875 Problem Patient refused evaluation or treatment Z53.20 Active 068191457 Problem Decreased hearing, unspecified laterality H91.90 Active 078563946 Problem Hypothyroidism, unspecified E03.9 Active 4093 0008 Problem TIA (transient ischemic attack) G45.9 Active 635258271 Problem Chronic fatigue R53.82 Active 88454943 Problem Vitamin D deficiency, unspecified E55.9 Active 25908194 Problem Essential (primary) hypertension I10 Active 09324345 Problem Recurrent syncope R55 Active 651480244 Problem 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 Ac tive 468562984 Problem Word finding difficulty R47.89 Active 57437121 6 Problem Driving safety issue Z91.89 Active 186801259 ALLERGIES Allergen (clinical drug ingredient) Drug/Non Drug Allergy do cumented on EMR Reaction Allergy Type Onset Date Status Shellfish Anaphylaxis Non Drug Allergy Active ciprofloxacin Cipro([facility] Code:[address]-85) memory loss, dizzy Drug A llergy Active Penicillin (For Allergies Use Only) Anaphylaxis Drug Aller gy Active codeine Codeine Sulfate([facility] Code:[address]-65) Confusion Drug Al lergy Active ENCOUNTERS from 1935 to 2020-06-14 Encounter Location Date Provider Diagnosis [facility] Res[facility] [address] [facility] [place] [address] Jun, Micheline Cr IMMUNIZATIONS Vaccine Route Administration Date [...] MEDICATIONS Medication SIG (Take, Route, Frequency, Duration) Start Date En d Date Status Ibuprofen 600 MG 1 tablet with food or milk a s needed Orally Three times a day for 30 Days Jan, Active Levothyroxine Sodium 75 MCG 1 tablet Orally Once a day 30 minutes before breakfast (NEEDS F/U APPT FOR MORE REFILLS) for 90 days Active Acetaminophen 500 MG 1-2 tablet as needed Orally every 6 hrs Nov Active Ankle Brace Rlfcuq-mv-Ohe - as directed On Right Ankle Daily for 4 weeks for 30 day(s) Apr, Active Scooter Chair as directed _ Daily for 9999 days Jan, Active Viactiv Flavor Glides Active Pantoprazole Sodium 40 MG 1 tablet Orally Once a day for 30 days Not-Taking Crestor 40 MG 1 tablet Orally Once a day for 30 day(s) May, Active Hydrocortisone 2.5 % 1 application to affected ar ea: apply a thin film Externally Twice a day for 14 day(s) Apr, 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 PROCEDURES No Information RESULTS No Results REASON FOR VISIT no-showed MEDICAL (GENERAL) HISTORY Type Description Date Medical [...] Information ASSESSMENTS No Information PLAN OF TREATMENT No Information Insurance Providers Payer Name Payer Address Payer Phone Insured Name Patient Relati onship to Insured Coverage Start Date Coverage End Date AETNA MEDICARE AETNA [employer] INSURANCE [employer] [address] [facility] [id number] ASTER PABLO self
--- OUTSIDE RECORDS SUMMARY | 2020-08-24 20:49 | CCD ---
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 Active 875411792 Problem Pain in thoracic spine M54.6 Active 783971387 160571 Problem Osteopenia of multiple sites M85.89 Active 312 136544 Problem Age-related osteoporosis without current pathological fracture M81.0 Active 275359029 Problem Multilevel degenerative disc disease M53.9 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 95585555 Problem Frequent falls R29.6 Active 887727316 Problem Diverticulitis K57.92 Active 518536216 Problem Reflux esophagitis K21.0 Active 958873531 Problem Esophageal dysphagia R13.10 Active 44370484 Problem Patient refused evaluation or treatment Z53.20 Active 682763988 Problem Decreased hearing, unspecified laterality H91.90 Active 610070517 Problem Hypothyroidism, unspecified E03.9 Active 4093 0008 Problem TIA (transient ischemic attack) G45.9 Active 828199335 Problem Chronic fatigue R53.82 Active 95993288 Problem Vitamin D deficiency, unspecified E55.9 Active 09407784 Problem Essential (primary) hypertension I10 Active 58639396 Problem Recurrent syncope R55 Active 798724100 Problem 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 Ac tive 680624178 Problem Word finding difficulty R47.89 Active 18040011 6 Problem Driving safety issue Z91.89 Active 979199146 ALLERGIES Allergen (clinical drug ingredient) Drug/Non Drug Allergy do cumented on EMR Reaction Allergy Type Onset Date Status Shellfish Anaphylaxis Non Drug Allergy Active ciprofloxacin Cipro([facility] Code:[address]-03) memory loss, dizzy Drug A llergy Active Penicillin (For Allergies Use Only) Anaphylaxis Drug Aller gy Active codeine Codeine Sulfate([facility] Code:[address]-46) Confusion Drug Al lergy Active ENCOUNTERS from 1935 to 2020-06-20 Encounter [place] [address] Jun, Micheline Cr IMMUNIZATIONS Vaccine Route Administration [...] every 6 hrs Nov Active Ankle Brace Uvmuiv-ek-Kin - as directed On Right Ankle Daily [...] Information RESULTS No Results REASON FOR VISIT [facility]V MEDICAL (GENERAL) HISTORY Type Description Date Medical [...] Date Coverage End Date AETNA MEDICARE AETNA [employer] INSURANCE [employer] [address] [facility] [phone] ASTER PABLO self
--- OUTSIDE RECORDS SUMMARY | 2020-08-24 20:49 | CCD ---
Author Author [facility] Organization 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 Active 341723334 Problem Pain in thoracic spine M54.6 Active 444574029 287762 Problem Osteopenia of multiple sites M85.89 Active 312 094353 Problem Age-related osteoporosis without current pathological fracture M81.0 Active 950769735 Problem Multilevel degenerative disc disease M53.9 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 34781661 Problem Frequent falls R29.6 Active 308662086 Problem Diverticulitis K57.92 Active 983769823 Problem Reflux esophagitis K21.0 Active 546438757 Problem Esophageal dysphagia R13.10 Active 64298874 Problem Patient refused evaluation or treatment Z53.20 Active 812813307 Problem Decreased hearing, unspecified laterality H91.90 Active 883671851 Problem Hypothyroidism, unspecified E03.9 Active 4093 0008 Problem TIA (transient ischemic attack) G45.9 Active 937637246 Problem Chronic fatigue R53.82 Active 14238793 Problem Vitamin D deficiency, unspecified E55.9 Active 57749436 Problem Essential (primary) hypertension I10 Active 21751202 Problem Recurrent syncope R55 Active 970743949 Problem 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 Ac tive 540394543 Problem Word finding difficulty R47.89 Active 58509427 6 Problem Driving safety issue Z91.89 Active 350133647 ALLERGIES Allergen (clinical drug ingredient) Drug/Non Drug Allergy do cumented on EMR Reaction Allergy Type Onset Date Status Shellfish Anaphylaxis Non Drug Allergy Active ciprofloxacin Cipro([facility] Code:[address]-42) memory loss, dizzy Drug A llergy Active Penicillin (For Allergies Use Only) Anaphylaxis Drug Aller gy Active codeine Codeine Sulfate([facility] Code:[address]-76) Confusion Drug Al lergy Active ENCOUNTERS from 1935 to 2020-07-01 Encounter Location Date Provider Diagnosis [address] [address] Jun, Micheline Cr Frequent falls R29.6 IMMUNIZATIONS Vaccine Route Administration Date Status Influenza [...] Daily for 9999 days Jan, 20 Active Ankle Brace Sehuwd-by-Gsg - as directed On Right Ankle Daily [...] Information RESULTS No Results REASON FOR VISIT Motorzied Scooter MEDICAL (GENERAL) HISTORY Type Description Date Medical [...] Treatment Notes Treatm ent Clinical Notes Jun, Frequent falls (ICD-10 - R29.6) PLAN OF TREATMENT Medication Medication Name Sig Start Date Stop Date Scooter Chair as directed _ Daily for 9999 days Jan, Levothyroxine Sodium 75 MCG 1 tablet Orally Once a day 30 minutes before breakfast (NEEDS F/U APPT FOR MORE REFILLS) for 90 days Insurance Providers Payer Name Payer Address Payer Phone Insured Name Patient Relati onship to Insured Coverage Start Date Coverage End Date AETNA MEDICARE AETNA [employer] INSURANCE [employer] [address] [facility] [id number] ASTER PABLO self
--- OUTSIDE RECORDS SUMMARY | 2020-08-24 20:49 | CCD ---
Author Author [facility] Organization [facility] Address Unknown Phone Unavailable Care Team Providers Care Chief Medical Officer Name Role Phone Micheline Cr Unavailable PROBLEMS Type Condition ICD9-CM Code [id number] Code Onset Dates Condition S tatus SNOMED Code Notes Problem Other chronic pain G89.29 Active 39072033 Problem Decreased independence with activities of daily living Z65.8 Active 364032840 Problem Other secondary kyphosis, 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 Active 723624560 Problem Pain in thoracic spine M54.6 Active 933510713 664897 Problem Osteopenia of multiple sites M85.89 Active 312 419264 Problem Age-related osteoporosis without current pathological fracture M81.0 Active 184413036 Problem Multilevel degenerative disc disease M53.9 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 41784225 Problem Frequent falls R29.6 Active 400251485 Problem Diverticulitis K57.92 Active 835203956 Problem Reflux esophagitis K21.0 Active 630378970 Problem Esophageal dysphagia R13.10 Active 91259738 Problem Patient refused evaluation or treatment Z53.20 Active 691321715 Problem Decreased hearing, unspecified laterality H91.90 Active 838444588 Problem Hypothyroidism, unspecified E03.9 Active 4093 0008 Problem TIA (transient ischemic attack) G45.9 Active 628123617 Problem Chronic fatigue R53.82 Active 00919066 Problem Vitamin D deficiency, unspecified E55.9 Active 54963882 Problem Essential (primary) hypertension I10 Active 41955837 Problem Recurrent syncope R55 Active 384539911 Problem 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 Ac tive 112338812 Problem Word finding difficulty R47.89 Active 71250609 6 Problem Driving safety issue Z91.89 Active 291245468 ALLERGIES Allergen (clinical drug ingredient) Drug/Non Drug Allergy do cumented on EMR Reaction Allergy Type Onset Date Status Shellfish Anaphylaxis Non Drug Allergy Active ciprofloxacin Cipro([facility] Code:[address]-93) memory loss, dizzy Drug A llergy Active Penicillin (For Allergies Use Only) Anaphylaxis Drug Aller gy Active codeine Codeine Sulfate([facility] Code:[address]-01) Confusion Drug Al lergy Active ENCOUNTERS from 1935 to 2020-06-15 Encounter [place] [address] 31 May, 2020 Micheline Cr IMMUNIZATIONS Vaccine Route Administration Date [...] every 6 hrs Nov Active Ankle Brace Wfqelb-ze-Qkv - as directed On Right Ankle Daily [...] Information RESULTS No Results REASON FOR VISIT Labs/neurology appt/DMV MEDICAL (GENERAL) HISTORY Type Description Date Medical [...] Date Coverage End Date AETNA MEDICARE AETNA [employer] INSURANCE [employer] [address] [facility] [id number] ASTER PABLO self
--- OUTSIDE RECORDS SUMMARY | 2020-08-24 20:49 | CCD ---
Author Author [facility] Organization [facility] Address Unknown Phone Unavailable Care Team Providers Care Plasticator Name Role Phone RUANO, AYANA Unavailable [phone] RUANO, AYANA Unavailable [phone] RUANO, AYANA Unavailable [phone] RUANO, AYANA Unavailable [phone] RUANO, AYANA Unavailable [phone] RUANO, AYANA Unavailable [phone] RUANO, AYANA Unavailable [phone] RUANO, AYANA Unavailable [phone] RUANO, AYANA Unavailable [phone] RUANO, AYANA Unavailable [phone] RUANO, AYANA Unavailable [phone] RUANO, AYANA Unavailable [phone] RUANO, AYANA Unavailable [phone] Re-disclosure Warning The records that you are about to access may contain information from federally-assisted alcohol or drug abuse programs. If such information is present, then the following federally mandated warning applies: This information has been disclosed to you from records protected by federal confidentiality rules (42 CFR part 2). The federal rules prohibit you from making any further disclosure of this information unless further disclosure is expressly permitted by the written consent of the person to whom it pertains or as otherwise permitted by 42 CFR part 2. A general authorization for the release of medical or other information is NOT sufficient for this purpose. The Federal rules restrict any use of the information to criminally investigate or prosecute any alcohol or drug abuse patient.The records that you are about to access may contain highly sensitive health information, the redisclosure of which is protected by Article 27-F of the [facility] Public Health law. If you continue you may have access to information: Regarding HIV / AIDS; Provided by facilities licensed or operated by the [facility] Office of Mental Health; or Provided by the [facility] Office for People With Developmental Disabilities. If such information is present, then the following [facility] mandated warning applies: This information has been disclosed to you from confidential records which are protected by state law. State law prohibits you from making any further disclosure of this information without the specific written consent of the person to whom it pertains, or as otherwise permitted by law. Any unauthorized further disclosure in violation of state law may result in a fine or long term sentence or both. A general authorization for the release of medical or other information is NOT sufficient authorization for further disc losure. Allergies and Adverse Reactions Type Description Substance Reaction Status Data Source(s ) Drug allergy Cipro Ciprofloxacin memory loss, dizzy Active eCW1 ([facility]) Shellfish Shellfish Shellfish Anaphylaxis Active eCW1 ([facility]) Codeine Sulfate Codeine Sulfate Codeine Sulfate Confusion Active eCW1 ([facility]) Encounters Encounter Providers Location Date Indications Data Source(s ) Unknown [address] [facility] [place] [address] 08/04/2020 12:00:00 AM EST eCW1 ([facility]) Unknown [address] [facility] [place] [address] 07/29/2020 12:00:00 AM EST eCW1 ([facility]) Outpatient [address] [facility] [place] [address] 07/25/2020 12:00:00 AM EST eCW1 ([facility]) [place] [address] [facility] [place] [address] 07/25/2020 12:00:00 AM EST eCW1 ([facility]) [place] [address] [facility] [place] [address] 07/24/2020 12:00:00 AM EST eCW1 ([facility]) [place] [address] [facility] [place] [address] 06/29/2020 12:00:00 AM EST eCW1 ([facility]) [place] [address] [facility] [place] [address] 06/27/2020 12:00:00 AM EST eCW1 ([facility]) [place] [address] [facility] [place] [address] 06/17/2020 12:00:00 AM EST eCW1 ([facility]) [place] [address] [facility] [place] [address] 06/14/2020 12:00:00 AM EST eCW1 ([facility]) [place] [address] [facility] [place] [address] 06/11/2020 12:00:00 AM EDT eCW1 ([facility]) [place] [address] [facility] [place] [address] 03/04/2020 12:00:00 AM EDT eCW1 ([facility]) Outpatient [address] [facility] [place] [address] 02/17/2020 12:00:00 AM EDT eCW1 ([facility]) Outpatient Referrer: AYANA RUANO 01/28/2020 05:14:00 AM EDT [facility] Outpatient [address] [facility] [place] [address] 01/20/2020 12:00:00 AM EDT eCW1 ([facility]) [place] [address] [facility] [place] [address] 01/14/2020 12:00:00 AM EDT eCW1 ([facility]) [facility] [place] [address] [facility] [place] [address] 12/21/2019 12:00:00 AM EDT eCW1 ([facility]) [facility] [place] [address] [facility] [place] [address] 09/23/2019 12:00:00 AM EST eCW1 ([facility]) [facility] [address] [place] [phone] 09/09/2019 12:00:00 AM EST eCW1 ([facility]) [facility] [place] [address] [facility] [place] [address] 07/31/2019 12:00:00 AM EST eCW1 ([facility]) [facility] Res[facility] [address] [place] [address] 07/29/2019 12:00:00 AM EST eCW1 ([facility]) Immunizations Vaccine Date Status Description Data Source(s) INFLUENZA VIRUS VACCINE QUADRIVAL SPLIT 2019-(65 YR UP)/PF 05/08/2020 12:00:00 AM EDT completed [facility] Medications Medication Brand Name Start Date Product Form Dose Route Admi nistrative Instructions Pharmacy Instructions Status Indications Reaction Description Data Source(s) Estradiol 0.1 MG/ML Vaginal Cream Estradiol 0.1 MG/GM Estrad iol 0.1 MG/GM 08/04/2020 12:00:00 AM EST active Estradiol 0.1 MG/GM eCW1 ([facility]) Estradiol 0.1 MG/ML Vaginal Cream Estradiol 0.1 MG/GM Estrad iol 0.1 MG/GM 08/04/2020 12:00:00 AM EST active Estradiol 0.1 MG/GM eCW1 ([facility]) 0.05 % 07/30/2020 12:00:00 AM EST ointment 15 APPLY TO AFFECTED AREA(S) TWO TIMES A DAY MAY DECREASE TO DAILY IF SYMPTOMS IMPROVE APPLY TO AFFECTED AREA(S) TWO TIMES A DAY MAY DECREASE TO DAILY IF SYMPTOMS IMPROVE SOLD: 08/01/2020 [facility] Clobetasol Propionate 0.0005 MG/MG Topic al Ointment Clobetasol Propionate 0.05 % Clobetasol Propionate 0.05 % 07/29/2020 12:00:00 AM EST 1.0 {application} active Clobetasol Propionate 0.05 % eCW1 ([facility]) Clobetasol Propionate 0.0005 MG/MG Topic al Ointment Clobetasol Propionate 0.05 % Clobetasol Propionate 0.05 % 07/29/2020 12:00:00 AM EST 1.0 {application} active Clobetasol Propionate 0.05 % eCW1 ([facility]) Clobetasol Propionate 0.0005 MG/MG Topic al Ointment Clobetasol Propionate 0.05 % Clobetasol Propionate 0.05 % 07/29/2020 12:00:00 AM EST 1.0 {application} active Clobetasol Propionate 0.05 % eCW1 ([facility]) Clobetasol Propionate 0.0005 MG/MG Topic al Ointment Clobetasol Propionate 0.05 % Clobetasol Propionate 0.05 % 07/29/2020 12:00:00 AM EST 1.0 {application} active Clobetasol Propionate 0.05 % eCW1 ([facility]) Clobetasol Propionate 0.0005 MG/MG Topic al Ointment Clobetasol Propionate 0.05 % Clobetasol Propionate 0.05 % 07/29/2020 12:00:00 AM EST 1.0 {application} active Clobetasol Propionate 0.05 % eCW1 ([facility]) Estrogens, Conjugated (RETIREMENT) 0.625 MG/ML Vaginal Cream [Premarin] Premarin 0.625 MG/GM Premarin 0.625 MG/GM 07/25/2020 12:00:00 AM EST active Premarin 0.625 MG/GM eCW1 ([facility]) Estrogens, Conjugated (RETIREMENT) 0.625 MG/ML Vaginal Cream [Premarin] Premarin 0.625 MG/GM Premarin 0.625 MG/GM 07/25/2020 12:00:00 AM EST active Premarin 0.625 MG/GM eCW1 ([facility]) Estrogens, Conjugated (RETIREMENT) 0.625 MG/ML Vaginal Cream [Premarin] Premarin 0.625 MG/GM Premarin 0.625 MG/GM 07/25/2020 12:00:00 AM EST active Premarin 0.625 MG/GM eCW1 ([facility]) Estrogens, Conjugated (RETIREMENT) 0.625 MG/ML Vaginal Cream [Premarin] Premarin 0.625 MG/GM Premarin 0.625 MG/GM 07/25/2020 12:00:00 AM EST active Premarin 0.625 MG/GM eCW1 ([facility]) Estrogens, Conjugated (RETIREMENT) 0.625 MG/ML Vaginal Cream [Premarin] Premarin 0.625 MG/GM Premarin 0.625 MG/GM 07/25/2020 12:00:00 AM EST active Premarin 0.625 MG/GM eCW1 ([facility]) 75 mcg 06/27/2020 12:00:00 AM EST tablet 90 TAKE ONE TABLET BY MOUTH EVERY DAY DIRECTED TAKE ONE TABLET BY MOUTH EVERY DAY DIRECTED SOLD: 020 [facility] Rosuvastatin calcium 40 MG Oral Tablet [Crestor] Crestor 40 MG Crestor 40 MG 06/03/2020 12:00:00 AM EDT 1.0 {tablet} suspended Crestor 40 MG eCW1 ([facility]) Rosuvastatin calcium 40 MG Oral Tablet [Crestor] Crestor 40 MG Crestor 40 MG 06/03/2020 12:00:00 AM EDT 1.0 {tablet} active Crestor 40 MG eCW1 ([facility]) Rosuvastatin calcium 40 MG Oral Tablet [Crestor] Crestor 40 MG Crestor 40 MG 06/03/2020 12:00:00 AM EDT 1.0 {tablet} suspended Crestor 40 MG eCW1 ([facility]) Rosuvastatin calcium 40 MG Oral Tablet [Crestor] Crestor 40 MG Crestor 40 MG 06/03/2020 12:00:00 AM EDT 1.0 {tablet} active Crestor 40 MG eCW1 ([facility]) Rosuvastatin calcium 40 MG Oral Tablet [Crestor] Crestor 40 MG Crestor 40 MG 06/03/2020 12:00:00 AM EDT 1.0 {tablet} active Crestor 40 MG eCW1 ([facility]) Rosuvastatin calcium 40 MG Oral Tablet [Crestor] Crestor 40 MG Crestor 40 MG 06/03/2020 12:00:00 AM EDT 1.0 {tablet} suspended Crestor 40 MG eCW1 ([facility]) Rosuvastatin calcium 40 MG Oral Tablet [Crestor] Crestor 40 MG Crestor 40 MG 06/03/2020 12:00:00 AM EDT 1.0 {tablet} suspended Crestor 40 MG eCW1 ([facility]) Rosuvastatin calcium 40 MG Oral Tablet [Crestor] Crestor 40 MG Crestor 40 MG 06/03/2020 12:00:00 AM EDT 1.0 {tablet} active Crestor 40 MG eCW1 ([facility]) Rosuvastatin calcium 40 MG Oral Tablet [Crestor] Crestor 40 MG Crestor 40 MG 06/03/2020 12:00:00 AM EDT 1.0 {tablet} suspended Crestor 40 MG eCW1 ([facility]) Rosuvastatin calcium 40 MG Oral Tablet [Crestor] Crestor 40 MG Crestor 40 MG 06/03/2020 12:00:00 AM EDT 1.0 {tablet} active Crestor 40 MG eCW1 ([facility]) 600 mg 01/21/2020 12:00:00 AM EDT tablet 90 TAKE ONE TABLET BY MOUTH WITH FOOD OR MILK NEEDED THREE TIMES A DAY TAKE ONE TABLET BY MOUTH WITH FOOD OR MILK NEEDED THREE TIMES A DAY SOLD: 01/26/2020 [facility] Ibuprofen 600 MG Oral Tablet Ibuprofen 600 MG 01/20/2020 12:00:00 AM E DT active Ibuprofen 600 MG eCW1 ([facility]) Ibuprofen 600 MG Oral Tablet Ibuprofen 600 MG 01/20/2020 12:00:00 AM E DT active Ibuprofen 600 MG eCW1 ([facility]) Ibuprofen 600 MG Oral Tablet Ibuprofen 600 MG 01/20/2020 12:00:00 AM E DT active Ibuprofen 600 MG eCW1 ([facility]) Ibuprofen 600 MG Oral Tablet Ibuprofen 600 MG 01/20/2020 12:00:00 AM E DT active Ibuprofen 600 MG eCW1 ([facility]) Ibuprofen 600 MG Oral Tablet Ibuprofen 600 MG 01/20/2020 12:00:00 AM E DT active Ibuprofen 600 MG eCW1 ([facility]) Scooter Chair UNK 01/20/2020 12:00:00 AM EDT acti ve Scooter Chair eCW1 ([facility]) Scooter Chair UNK 01/20/2020 12:00:00 AM EDT acti ve Scooter Chair eCW1 ([facility]) Ibuprofen 600 MG Oral Tablet Ibuprofen 600 MG 01/20/2020 12:00:00 AM E DT active Ibuprofen 600 MG eCW1 ([facility]) Ibuprofen 600 MG Oral Tablet Ibuprofen 600 MG 01/20/2020 12:00:00 AM E DT active Ibuprofen 600 MG eCW1 ([facility]) Scooter Chair UNK 01/20/2020 12:00:00 AM EDT acti ve Scooter Chair eCW1 ([facility]) Ibuprofen 600 MG Oral Tablet Ibuprofen 600 MG 01/20/2020 12:00:00 AM E DT active Ibuprofen 600 MG eCW1 ([facility]) Scooter Chair UNK 01/20/2020 12:00:00 AM EDT acti ve Scooter Chair eCW1 ([facility]) Ibuprofen 600 MG Oral Tablet Ibuprofen 600 MG 01/20/2020 12:00:00 AM E DT active Ibuprofen 600 MG eCW1 ([facility]) Scooter Chair UNK 01/20/2020 12:00:00 AM EDT acti ve Scooter Chair eCW1 ([facility]) Scooter Chair UNK 01/20/2020 12:00:00 AM EDT acti ve Scooter Chair eCW1 ([facility]) Scooter Chair UNK 01/20/2020 12:00:00 AM EDT acti ve Scooter Chair eCW1 ([facility]) Scooter Chair UNK 01/20/2020 12:00:00 AM EDT acti ve Scooter Chair eCW1 ([facility]) Scooter Chair UNK 01/20/2020 12:00:00 AM EDT acti ve Scooter Chair eCW1 ([facility]) Ibuprofen 600 MG Oral Tablet Ibuprofen 600 MG 01/20/2020 12:00:00 AM E DT active Ibuprofen 600 MG eCW1 ([facility]) Scooter Chair UNK 01/20/2020 12:00:00 AM EDT acti ve Scooter Chair eCW1 ([facility]) Scooter Chair UNK 01/20/2020 12:00:00 AM EDT acti ve Scooter Chair eCW1 ([facility]) Ibuprofen 600 MG Oral Tablet Ibuprofen 600 MG 01/20/2020 12:00:00 AM E DT active Ibuprofen 600 MG eCW1 ([facility]) Ibuprofen 600 MG Oral Tablet Ibuprofen 600 MG 01/20/2020 12:00:00 AM E DT active Ibuprofen 600 MG eCW1 ([facility]) Scooter Chair UNK 01/20/2020 12:00:00 AM EDT acti ve Scooter Chair eCW1 ([facility]) Ibuprofen 600 MG Oral Tablet Ibuprofen 600 MG 01/20/2020 12:00:00 AM E DT active Ibuprofen 600 MG eCW1 ([facility]) Scooter Chair UNK 01/20/2020 12:00:00 AM EDT acti ve Scooter Chair eCW1 ([facility]) 75 mcg 09/25/2019 12:00:00 AM EST tablet 90 TAKE ONE TABLET BY MOUTH EVERY DAY 30 MINUTES BEFORE BREAKFAST TAKE ONE TABLET BY MOUTH EVERY DAY 30 TN NUTES BEFORE BREAKFAST SOLD: 09/26/2019 [facility] 75 mcg 09/25/2019 12:00:00 AM EST tablet 90 TAKE ONE TABLET BY MOUTH EVERY DAY 30 MINUTES BEFORE BREAKFAST TAKE ONE TABLET BY MOUTH EVERY DAY 30 TN NUTES BEFORE BREAKFAST SOLD: 03/28/2020 [facility] 75 mcg 09/25/2019 12:00:00 AM EST tablet 90 TAKE ONE TABLET BY MOUTH EVERY DAY 30 MINUTES BEFORE BREAKFAST TAKE ONE TABLET BY MOUTH EVERY DAY 30 TN NUTES BEFORE BREAKFAST SOLD: 12/21/2019 [facility] 25 mg 07/23/2019 12:00:00 AM EST tablet 9 TAKE ONE TABLET BY MOUTH EVERY 8 HOURS TAKE ONE TABLET BY MOUTH EVERY 8 HOURS SOLD: 08/23/2019 [facility] Insurance Providers Payer name Policy type / Coverage type Policy ID Covered constitution party ID Covered constitution party's relationship to lo Policy Lo Plan Information AETNA MEDICARE [id number] SP [id number] AETNA MEDICARE O [id number] S [id number] AETNA MEDICARE [id number] SP [id number] MEDICARE COMPLETE [id number] SP ME [id number] MEDICARE [id number] SP [id number] MEDICARE COMPLETE [id number] SP [id number] MEDICARE COMPLETE [id number] SP [id number] ANSI-Medicare Part B [id number] ANSI-Medicare Part B [id number] MEDICARE UNK SP [id number] ANSI-Medicare Part B [id number] ANSI-Medicare Part B [id number] ANSI-Medicare Part B [id number] ANSI-Medicare Part B [id number] ANSI-Medicare Part B [id number] ANSI-Medicare Part B [id number] ANSI-Medicare Part B [id number] ANSI-Medicare Part B [id number] ANSI-Medicare Part B [id number] ANSI-Medicare Part B [id number] ANSI-Medicare Part B [id number] ANSI-Medicare Part B [id number] ANSI-Medicare Part B [id number] ANSI-Medicare Part B [id number] ANSI-Medicare Part B [id number] ANSI-Medicare Part B [id number] [facility]-Medicare Part B [id number] [facility]-Medicare Part B [id number] MEDICARE COMPLETE [id number] SP [id number] MEDICARE COMPLETE-[facility] O [id number] S [id number] [employer] OPTIONS/PERUVIAN O [id number] S [id number] TODAYS OPTIONS [id number] SP [id number] MEDICARE [id number] SP [id number] A MEDICARE C [id number] S [id number] A MEDICARE [id number] SP [id number] A P UNAVAILABLE UNAVAILA BLE [id number] A Problems, Conditions, and Diagnoses Code Display Name Description Problem Type Effective Dates Data Source(s) R45.89 [id number] Need for emotional support Problem 0 12:00:00 AM EST eCW1 ([facility]) N90.4 [id number] Lichen sclerosus of female genitalia Prob liv 07/31/2020 12:00:00 AM EST eCW1 ([facility]) N95.2 [id number] Vaginal atrophy Problem 07/25/2020 12:00:00 AM EST eCW1 ([facility]) F03.90 [id number] Dementia without beh avioral disturbance, unspecified dementia type Problem 07/25/2020 12:00:00 AM EST eCW1 ([facility]) Z53.20 [id number] 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 Pro blem 06/11/2020 12:00:00 AM EDT eCW1 ([facility]) Z53.20 [id number] Patient refused evaluation or treatment P roblem 06/11/2020 12:00:00 AM EDT eCW1 ([facility]) Z91.89 [id number] Driving safety issue Problem 06/11/2020 12:0 0:00 AM EDT eCW1 ([facility]) R47.89 [id number] Word finding difficulty Problem 06/11/2020 1 2:00:00 AM EDT eCW1 ([facility]) G45.9 [id number] TIA (transient ischemic attack) Problem 06/03/2020 12:00:00 AM EDT eCW1 ([facility]) R55 [id number] Recurrent syncope Problem 02/21/2020 12:00:0 0 AM EDT eCW1 ([facility]) Surgeries/Procedures Procedure Description Date Indications Data Source(s) Office Visit, Est Pt., Level 3 PC 07/29/2019 12:00:00 AM EST eCW1 ([facility]) Office Visit, Est Pt., Level 3 FC 07/29/2019 12:00:00 AM EST eCW1 ([facility]) Social History Code Duration Value Status Description Data Source(s ) Smoking 07/25/2020 12:00:00 AM EST Never Smoker completed Never S moker eCW1 ([facility]) Smoking 07/25/2020 12:00:00 AM EST Never Smoker completed Never S moker eCW1 ([facility]) Smoking 07/25/2020 12:00:00 AM EST Never Smoker completed Never S moker eCW1 ([facility]) Smoking 07/25/2020 12:00:00 AM EST Never Smoker completed Never S moker eCW1 ([facility]) Smoking 07/25/2020 12:00:00 AM EST Never Smoker completed Never S moker eCW1 ([facility]) Smoking 06/14/2020 12:00:00 AM EST Never Smoker completed Never S moker eCW1 ([facility]) Smoking 06/14/2020 12:00:00 AM EST Never Smoker completed Never S moker eCW1 ([facility]) Smoking 06/14/2020 12:00:00 AM EST Never Smoker completed Never S moker eCW1 ([facility]) Smoking 06/14/2020 12:00:00 AM EST Never Smoker completed Never S moker eCW1 ([facility]) Smoking 06/14/2020 12:00:00 AM EST Never Smoker completed Never S moker eCW1 ([facility]) Smoking 02/27/2020 12:00:00 AM EDT Never Smoker completed Never S moker eCW1 ([facility]) Smoking 02/27/2020 12:00:00 AM EDT Never Smoker completed Never S moker eCW1 ([facility]) Smoking 01/20/2020 12:00:00 AM EDT Never Smoker completed Never S moker eCW1 ([facility]) Smoking 07/29/2019 12:00:00 AM EST Never Smoker completed Never S moker eCW1 ([facility]) Vital Signs ID Date Data Source UNK Name Value Range Interpretation Code Description Data Source(s) Diastolic blood pressure 82 mm[Hg] 82 mm[Hg] eCW1 ([facility]) Systolic blood pressure 146 mm[Hg] 146 mm[Hg] e CW1 ([facility]) Body temperature 98.0 [degF] 98.0 [degF] eCW1 ( [facility]) Respiratory rate 18 /min 18 /min eCW1 ([facility]) Heart rate 80 /min 80 /min eCW1 ([facility] Body mass index (BMI) [Ratio] 25.99 kg/m2 25.99 kg/m2 W1 ([facility]) Body height 65 [in_i] 65 [in_i] W1 ([facility]) Body weight 156.2 [lb_av] 156.2 [lb_av] eCW1 ([facility]) Diastolic blood pressure 62 mm[Hg] 62 mm[Hg] eCW1 ([facility]) Systolic blood pressure 118 mm[Hg] 118 mm[Hg] e CW1 ([facility]) Body temperature 97.5 [degF] 97.5 [degF] eCW1 ( [facility]) Respiratory rate 18 /min 18 /min eCW1 ([facility]) Heart rate 82 /min 82 /min eCW1 ([facility]) Body mass index (BMI) [Ratio] 25.49 kg/m2 25.49 kg/m2 eCW1 ([facility]) Body height 65 [in_i] 65 [in_i] eCW1 ([facility]) Body weight 153.2 [lb_av] 153.2 [lb_av] eCW1 ([facility]) Diastolic blood pressure 82 mm[Hg] 82 mm[Hg] eCW1 ([facility]) Systolic blood pressure 120 mm[Hg] 120 mm[Hg] e CW1 ([facility]) Body temperature 97.6 [degF] 97.6 [degF] eCW1 ( [facility]) Respiratory rate 20 /min 20 /min eCW1 ([facility]) Heart rate 86 /min 86 /min eCW1 ([facility]) Body mass index (BMI) [Ratio] 25.56 kg/m2 25.56 kg/m2 eCW1 ([facility]) Body height 65 [in_i] 65 [in_i] eCW1 ([facility]) Body weight 153.6 [lb_av] 153.6 [lb_av] eCW1 ([facility]) Diastolic blood pressure 70 mm[Hg] 70 mm[Hg] eCW1 ([facility]) Systolic blood pressure 124 mm[Hg] 124 mm[Hg] e CW1 ([facility]) Body temperature 98 [degF] 98 [degF] eCW1 ([facility]) Respiratory rate 20 /min 20 /min eCW1 ([facility]) Heart rate 77 /min 77 /min eCW1 ([facility]) Body mass index (BMI) [Ratio] 26.06 kg/m2 26.06 kg/m2 eCW1 ([facility]) Body height 65 [in_us] 65 [in_us] eCW1 ([facility]) Body weight Measured 156.6 [lb_av] 156.6 [lb_av ] eCW1 ([facility]) Patient Treatment Plan of Care Planned Activity Planned Date Details Description Data Source (s) Estradiol 0.1 MG/ML Vaginal Cream 08/04/2020 12:00:00 AM EST eCW1 ([facility]) Estradiol 0.1 MG/ML Vaginal Cream 08/04/2020 12:00:00 AM EST eCW1 ([facility]) Clobetasol Propionate 0.0005 MG/MG Topical Ointment 07/29/20 20 12:00:00 AM EST eCW1 ([facility]) Clobetasol Propionate 0.0005 MG/MG Topical Ointment 07/29/20 20 12:00:00 AM EST eCW1 ([facility]) Clobetasol Propionate 0.0005 MG/MG Topical Ointment 07/29/20 20 12:00:00 AM EST eCW1 ([facility]) Clobetasol Propionate 0.0005 MG/MG Topical Ointment 07/29/20 20 12:00:00 AM EST eCW1 ([facility]) Clobetasol Propionate 0.0005 MG/MG Topical Ointment 07/29/20 20 12:00:00 AM EST eCW1 ([facility]) Estrogens, Conjugated (RETIREMENT) 0.625 MG/ML Vaginal Cream [Premarin] 07/25/2020 12:00:00 AM EST eCW1 ([facility]) Estrogens, Conjugated (RETIREMENT) 0.625 MG/ML Vaginal Cream [Premarin] 07/25/2020 12:00:00 AM EST eCW1 ([facility]) Estrogens, Conjugated (RETIREMENT) 0.625 MG/ML Vaginal Cream [Premarin] 07/25/2020 12:00:00 AM EST eCW1 ([facility]) Estrogens, Conjugated (RETIREMENT) 0.625 MG/ML Vaginal Cream [Premarin] 07/25/2020 12:00:00 AM EST eCW1 ([facility]) Estrogens, Conjugated (RETIREMENT) 0.625 MG/ML Vaginal Cream [Premarin] 07/25/2020 12:00:00 AM EST eCW1 ([facility]) Scooter Chair 01/20/2020 12:00:00 AM EDT eCW1 ([facility]) Ibuprofen 600 MG Oral Tablet 01/20/2020 12:00:00 AM EDT eCW1 ([facility]) Scooter Chair 01/20/2020 12:00:00 AM EDT eCW1 ([facility])
--- OUTSIDE RECORDS SUMMARY | 2020-08-24 20:49 | CCD ---
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 Active 987250140 Problem Pain in thoracic spine M54.6 Active 019456872 708289 Problem Osteopenia of multiple sites M85.89 Active 312 548206 Problem Age-related osteoporosis without current pathological fracture M81.0 Active 770275865 Problem Multilevel degenerative disc disease M53.9 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 13621907 Problem Frequent falls R29.6 Active 149766043 Problem Decreased hearing, unspecified laterality H91.90 Active 592516288 Problem Hypothyroidism, unspecified E03.9 Active 4093 0008 Problem Chronic fatigue R53.82 Active 92392845 Problem Vitamin D deficiency, unspecified E55.9 Active 77901568 Problem Esophageal dysphagia R13.10 Active 97357854 Problem Recurrent syncope R55 Active 637573031 Problem 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 Ac tive 995206156 Problem Vaginal atrophy N95.2 Active 241169450 Problem Reflux esophagitis K21.0 Active 607238250 Problem Decreased independence with activities of daily living Z65.8 Active 077156011 Problem Dementia without behavioral disturbance, unspeci fied dementia type F03.90 Active 24244778 Problem Diverticulitis K57.92 Active 290974694 Problem Essential (primary) hypertension I10 Active 30410362 Problem Other chronic pain G89.29 Active 24492710 Problem Word finding difficulty R47.89 Active 13040852 6 Problem Driving safety issue Z91.89 Active 003549247 Problem Patient refused evaluation or treatment Z53.20 Active 698326544 Problem TIA (transient ischemic attack) G45.9 Active 234019046 ALLERGIES Allergen (clinical drug ingredient) Drug/Non Drug Allergy do cumented on EMR Reaction Allergy Type Onset Date Status Shellfish Anaphylaxis Non Drug Allergy Active ciprofloxacin Cipro([facility] Code:[address]-84) memory loss, dizzy Drug A llergy Active Penicillin (For Allergies Use Only) Anaphylaxis Drug Aller gy Active codeine Codeine Sulfate([facility] Code:[address]-03) Confusion Drug Al lergy Active ENCOUNTERS from 1935 to 2020-07-29 Encounter Location [place] [address] 14 Jul, 2020 Micheline Shaye Dementia without behavioral disturbance, unspecified dementia type F03.90 and Patient refused evaluation or treatment Z53.20 IMMUNIZATIONS Vaccine Route Administration Date Status Influenza [...] day for 30 days Not-Taking Ankle Brace [id number] - as directed On Right Ankle Daily [...] Information RESULTS No Results REASON FOR VISIT No Information MEDICAL (GENERAL) HISTORY Type Description Date Medical [...] Treatment Notes Treatm ent Clinical Notes Jul, Dementia without behavioral disturbance, unspecified dementia type (ICD-10 - F03.90) Pt has dementia and forgetfullness. Will refer patient for home health for weekly viist and for medication management. Jul, Patient refused evaluation or treatment (ICD-10 - Z53.20) Patient refused physician's recommended treatment with home health PLAN OF TREATMENT Medication Medication Name Sig Start Date Stop Date Premarin 0.625 MG/GM 0.5g in vaginal and vaulva r egion Vaginal 21 days, off for 7 days for 21 day(s) Jul, Clobetasol Propionate 0.05 % 1 application Externally Twice a day, may decreased to daily use if symptoms improvement for 21 day(s) Jul, Treatment Notes Assessment Notes Clinical Notes Dementia without behavioral disturbance, unspecified dementi a type Pt has dementia and forgetfullness. Will refer patient for home health for weekly viist and for medication management. Patient refused evaluation or treatment Patient refused physician's recommended treatment with home health Next Appt Details Provider Name:Micheline Shaye, 2020-08-16 09 :30:00 AM, [address] [place], [address], Insurance Providers Payer Name Payer Address Payer Phone Insured Name Patient Relati onship to Insured Coverage Start Date Coverage End Date [employer] MEDICARE [email or web address]ANCE [employer] [address] [facility] [phone] [employer] self
[2020-08-24] MEDS ORDERED: ATORVASTATIN 20 MG TAB PO SCH (21:00)
--- OUTSIDE RECORDS SUMMARY | 2020-08-24 21:46 | CCD ---
Author Author [facility] Organization [facility] Address Unknown Phone Unavailable Care Team Providers Care Sand Carrier Name Role Phone RUANO, AYANA Unavailable [phone] RUANO, AYANA Unavailable [phone] RUANO, AYANA Unavailable [phone] RUANO, AYANA Unavailable [phone] RUANO, AYANA Unavailable [phone] RUANO, AYANA Unavailable [phone] RUANO, AYANA Unavailable [phone] RUANO, AYANA Unavailable [phone] RUANO, AYANA Unavailable [phone] RUANO, AYANA Unavailable [phone] RUANO, AYANA Unavailable [phone] RUANO, AYANA Unavailable [phone] RUANO, AYANA Unavailable [phone] Re-disclosure Warning The records that you are [...] is protected by Article 27-F of the [facility] Public Health law. If you continue you may have access to information: Regarding HIV / AIDS; Provided by facilities licensed or operated by the [facility] Office of Mental Health; or Provided by the [facility] Office for People With Developmental Disabilities. If such information is present, then the following [facility] mandated warning applies: This information has [...] law may result in a fine or custodial sentence or both. A general authorization for the release of medical or other information is NOT sufficient authorization for further disc losure. Allergies and Adverse Reactions Type Description Substance Reaction Status Data Source(s ) Drug allergy Cipro Ciprofloxacin memory loss, dizzy Active eCW1 ([facility]) Shellfish Shellfish Shellfish Anaphylaxis Active eCW1 ([facility]) Codeine Sulfate Codeine Sulfate Codeine Sulfate Confusion Active eCW1 ([facility]) Encounters Encounter Providers Location Date Indications Data Source(s ) Unknown [address] [facility] [place] [address] 08/04/2020 12:00:00 AM EST eCW1 ([facility]) [place] [address] [facility] [address] [place] [address] 07/29/2020 12:00:00 AM EST eCW1 ([facility]) Outpatient [address] [facility] [place] [address] 07/25/2020 12:00:00 AM EST eCW1 ([facility]) [place] [address] [facility] [address] 07/25/2020 12:00:00 AM EST eCW1 ([facility]) [place] [address] [facility] [address] 07/24/2020 12:00:00 AM EST eCW1 ([facility]) [place] [address] [facility] [address] 06/29/2020 12:00:00 AM EST eCW1 ([facility]) [place] [address] [facility] [address] 06/27/2020 12:00:00 AM EST eCW1 ([facility]) [place] [address] [facility] [place] [address] 06/17/2020 12:00:00 AM EST eCW1 ([facility]) [place] [address] [facility] [address] 06/14/2020 12:00:00 AM EST eCW1 ([facility]) [place] [address] [facility] [address] 06/11/2020 12:00:00 AM EDT eCW1 ([facility]) [place] [address] [facility] [place] [address] 03/04/2020 12:00:00 AM EDT eCW1 ([facility]) [place] [address] [facility] [address] 02/17/2020 12:00:00 AM EDT eCW1 ([facility]) Outpatient Referrer: AYANA RUANO 01/28/2020 05:14:00 AM EDT [facility] [place] [address] [facility] [address] 01/20/2020 12:00:00 AM EDT eCW1 ([facility]) [place] [address] [facility] [place] [address] 01/14/2020 12:00:00 AM EDT eCW1 ([facility]) [facility] [place] [address] [facility] [address] 12/21/2019 12:00:00 AM EDT eCW1 ([facility]) [facility] [place] [address] [facility] [address] 09/23/2019 12:00:00 AM EST eCW1 ([facility]) [facility] Resident [address] [place] [address] 09/09/2019 12:00:00 AM EST eCW1 ([facility]) [facility] [place] [address] [facility] [address] 07/31/2019 12:00:00 AM EST eCW1 ([facility]) [facility] Resident [address] [place] [address] 07/29/2019 12:00:00 AM EST eCW1 ([facility]) Immunizations Vaccine Date Status Description Data [...] AM EST active Estradiol 0.1 MG/GM eCW1 ([facility]) Estradiol 0.1 MG/ML Vaginal Cream Estradiol 0.1 MG/GM Estrad iol 0.1 MG/GM 08/04/2020 12:00:00 AM EST active Estradiol 0.1 MG/GM eCW1 ([facility]) 0.05 % 07/30/2020 12:00:00 AM [...] {application} active Clobetasol Propionate 0.05 % eCW1 ([facility]) Clobetasol Propionate 0.0005 MG/MG Topic al Ointment Clobetasol Propionate 0.05 % Clobetasol Propionate 0.05 % 07/29/2020 12:00:00 AM EST 1.0 {application} active Clobetasol Propionate 0.05 % eCW1 ([facility]) Clobetasol Propionate 0.0005 MG/MG Topic al Ointment Clobetasol Propionate 0.05 % Clobetasol Propionate 0.05 % 07/29/2020 12:00:00 AM EST 1.0 {application} active Clobetasol Propionate 0.05 % eCW1 ([facility]) Clobetasol Propionate 0.0005 MG/MG Topic al Ointment Clobetasol Propionate 0.05 % Clobetasol Propionate 0.05 % 07/29/2020 12:00:00 AM EST 1.0 {application} active Clobetasol Propionate 0.05 % eCW1 ([facility]) Clobetasol Propionate 0.0005 MG/MG Topic al Ointment Clobetasol Propionate 0.05 % Clobetasol Propionate 0.05 % 07/29/2020 12:00:00 AM EST 1.0 {application} active Clobetasol Propionate 0.05 % eCW1 ([facility]) Estrogens, Conjugated (PENITENTIARY) 0.625 MG/ML Vaginal Cream [Premarin] Premarin 0.625 MG/GM Premarin 0.625 MG/GM 07/25/2020 12:00:00 AM EST active Premarin 0.625 MG/GM eCW1 ([facility]) Estrogens, Conjugated (PENITENTIARY) 0.625 MG/ML Vaginal Cream [Premarin] Premarin 0.625 MG/GM Premarin 0.625 MG/GM 07/25/2020 12:00:00 AM EST active Premarin 0.625 MG/GM eCW1 ([facility]) Estrogens, Conjugated (PENITENTIARY) 0.625 MG/ML Vaginal Cream [Premarin] Premarin 0.625 MG/GM Premarin 0.625 MG/GM 07/25/2020 12:00:00 AM EST active Premarin 0.625 MG/GM eCW1 ([facility]) Estrogens, Conjugated (PENITENTIARY) 0.625 MG/ML Vaginal Cream [Premarin] Premarin 0.625 MG/GM Premarin 0.625 MG/GM 07/25/2020 12:00:00 AM EST active Premarin 0.625 MG/GM eCW1 ([facility]) Estrogens, Conjugated (PENITENTIARY) 0.625 MG/ML Vaginal Cream [Premarin] Premarin 0.625 MG/GM Premarin 0.625 MG/GM 07/25/2020 12:00:00 AM EST active Premarin 0.625 MG/GM eCW1 ([facility]) 75 mcg 06/27/2020 12:00:00 AM EST tablet 90 TAKE ONE TABLET BY MOUTH EVERY DAY DIRECTED TAKE ONE TABLET BY MOUTH EVERY DAY DIRECTED SOLD: 020 [facility] Rosuvastatin calcium 40 MG Oral Tablet [Crestor] Crestor 40 MG Crestor 40 MG 06/03/2020 12:00:00 AM EDT 1.0 {tablet} suspended Crestor 40 MG eCW1 ([facility]) Rosuvastatin calcium 40 MG Oral Tablet [Crestor] Crestor 40 MG Crestor 40 MG 06/03/2020 12:00:00 AM EDT 1.0 {tablet} active Crestor 40 MG eCW1 ([facility]) Rosuvastatin calcium 40 MG Oral Tablet [Crestor] Crestor 40 MG Crestor 40 MG 06/03/2020 12:00:00 AM EDT 1.0 {tablet} suspended Crestor 40 MG eCW1 ([facility]) Rosuvastatin calcium 40 MG Oral Tablet [Crestor] Crestor 40 MG Crestor 40 MG 06/03/2020 12:00:00 AM EDT 1.0 {tablet} active Crestor 40 MG eCW1 ([facility]) Rosuvastatin calcium 40 MG Oral Tablet [Crestor] Crestor 40 MG Crestor 40 MG 06/03/2020 12:00:00 AM EDT 1.0 {tablet} active Crestor 40 MG eCW1 ([facility]) Rosuvastatin calcium 40 MG Oral Tablet [Crestor] Crestor 40 MG Crestor 40 MG 06/03/2020 12:00:00 AM EDT 1.0 {tablet} suspended Crestor 40 MG eCW1 ([facility]) Rosuvastatin calcium 40 MG Oral Tablet [Crestor] Crestor 40 MG Crestor 40 MG 06/03/2020 12:00:00 AM EDT 1.0 {tablet} suspended Crestor 40 MG eCW1 ([facility]) Rosuvastatin calcium 40 MG Oral Tablet [Crestor] Crestor 40 MG Crestor 40 MG 06/03/2020 12:00:00 AM EDT 1.0 {tablet} active Crestor 40 MG eCW1 ([facility]) Rosuvastatin calcium 40 MG Oral Tablet [Crestor] Crestor 40 MG Crestor 40 MG 06/03/2020 12:00:00 AM EDT 1.0 {tablet} suspended Crestor 40 MG eCW1 ([facility]) Rosuvastatin calcium 40 MG Oral Tablet [Crestor] Crestor 40 MG Crestor 40 MG 06/03/2020 12:00:00 AM EDT 1.0 {tablet} active Crestor 40 MG eCW1 ([facility]) 600 mg 01/21/2020 12:00:00 AM EDT tablet 90 TAKE ONE TABLET BY MOUTH WITH FOOD OR MILK NEEDED THREE TIMES A DAY TAKE ONE TABLET BY MOUTH WITH FOOD OR MILK NEEDED THREE TIMES A DAY SOLD: 01/26/2020 [facility] Ibuprofen 600 MG Oral Tablet Ibuprofen 600 MG 01/20/2020 12:00:00 AM E DT active Ibuprofen 600 MG eCW1 ([facility]) Ibuprofen 600 MG Oral Tablet Ibuprofen 600 MG 01/20/2020 12:00:00 AM E DT active Ibuprofen 600 MG eCW1 ([facility]) Ibuprofen 600 MG Oral Tablet Ibuprofen 600 MG 01/20/2020 12:00:00 AM E DT active Ibuprofen 600 MG eCW1 ([facility]) Ibuprofen 600 MG Oral Tablet Ibuprofen 600 MG 01/20/2020 12:00:00 AM E DT active Ibuprofen 600 MG eCW1 ([facility]) Ibuprofen 600 MG Oral Tablet Ibuprofen 600 MG 01/20/2020 12:00:00 AM E DT active Ibuprofen 600 MG eCW1 ([facility]) Scooter Chair UNK 01/20/2020 12:00:00 AM EDT acti ve Scooter Chair eCW1 ([facility]) Scooter Chair UNK 01/20/2020 12:00:00 AM EDT acti ve Scooter Chair eCW1 ([facility]) Ibuprofen 600 MG Oral Tablet Ibuprofen 600 MG 01/20/2020 12:00:00 AM E DT active Ibuprofen 600 MG eCW1 ([facility]) Ibuprofen 600 MG Oral Tablet Ibuprofen 600 MG 01/20/2020 12:00:00 AM E DT active Ibuprofen 600 MG eCW1 ([facility]) Scooter Chair UNK 01/20/2020 12:00:00 AM EDT acti ve Scooter Chair eCW1 ([facility]) Ibuprofen 600 MG Oral Tablet Ibuprofen 600 MG 01/20/2020 12:00:00 AM E DT active Ibuprofen 600 MG eCW1 ([facility]) Scooter Chair UNK 01/20/2020 12:00:00 AM EDT acti ve Scooter Chair eCW1 ([facility]) Ibuprofen 600 MG Oral Tablet Ibuprofen 600 MG 01/20/2020 12:00:00 AM E DT active Ibuprofen 600 MG eCW1 ([facility]) Scooter Chair UNK 01/20/2020 12:00:00 AM EDT acti ve Scooter Chair eCW1 ([facility]) Scooter Chair UNK 01/20/2020 12:00:00 AM EDT acti ve Scooter Chair eCW1 ([facility]) Scooter Chair UNK 01/20/2020 12:00:00 AM EDT acti ve Scooter Chair eCW1 ([facility]) Scooter Chair UNK 01/20/2020 12:00:00 AM EDT acti ve Scooter Chair eCW1 ([facility]) Scooter Chair UNK 01/20/2020 12:00:00 AM EDT acti ve Scooter Chair eCW1 ([facility]) Ibuprofen 600 MG Oral Tablet Ibuprofen 600 MG 01/20/2020 12:00:00 AM E DT active Ibuprofen 600 MG eCW1 ([facility]) Scooter Chair UNK 01/20/2020 12:00:00 AM EDT acti ve Scooter Chair eCW1 ([facility]) Scooter Chair UNK 01/20/2020 12:00:00 AM EDT acti ve Scooter Chair eCW1 ([facility]) Ibuprofen 600 MG Oral Tablet Ibuprofen 600 MG 01/20/2020 12:00:00 AM E DT active Ibuprofen 600 MG eCW1 ([facility]) Ibuprofen 600 MG Oral Tablet Ibuprofen 600 MG 01/20/2020 12:00:00 AM E DT active Ibuprofen 600 MG eCW1 ([facility]) Scooter Chair UNK 01/20/2020 12:00:00 AM EDT acti ve Scooter Chair eCW1 ([facility]) Ibuprofen 600 MG Oral Tablet Ibuprofen 600 MG 01/20/2020 12:00:00 AM E DT active Ibuprofen 600 MG eCW1 ([facility]) Scooter Chair UNK 01/20/2020 12:00:00 AM EDT acti ve Scooter Chair eCW1 ([facility]) 75 mcg 09/25/2019 12:00:00 AM EST tablet 90 TAKE ONE TABLET BY MOUTH EVERY DAY 30 MINUTES BEFORE BREAKFAST TAKE ONE TABLET BY MOUTH EVERY DAY 30 PR NUTES BEFORE BREAKFAST SOLD: 09/26/2019 [facility] 75 mcg 09/25/2019 12:00:00 AM EST tablet 90 TAKE ONE TABLET BY MOUTH EVERY DAY 30 MINUTES BEFORE BREAKFAST TAKE ONE TABLET BY MOUTH EVERY DAY 30 PR NUTES BEFORE BREAKFAST SOLD: 03/28/2020 [facility] 75 mcg 09/25/2019 12:00:00 AM EST tablet 90 TAKE ONE TABLET BY MOUTH EVERY DAY 30 MINUTES BEFORE BREAKFAST TAKE ONE TABLET BY MOUTH EVERY DAY 30 PR NUTES BEFORE BREAKFAST SOLD: 12/21/2019 [facility] 25 mg 07/23/2019 12:00:00 AM EST tablet 9 TAKE ONE TABLET BY MOUTH EVERY 8 HOURS TAKE ONE TABLET BY MOUTH EVERY 8 HOURS SOLD: 08/23/2019 [facility] Insurance Providers Payer name Policy type / Coverage type Policy ID Covered alliance party ID Covered alliance party's relationship to lo Policy Lo Plan Information AETNA MEDICARE [id number] SP [id number] AETNA MEDICARE O [id number] S [id number] AETNA MEDICARE [id number] SP [id number] MEDICARE COMPLETE [id number] SP ME [id number] MEDICARE [id number] SP [id number] MEDICARE COMPLETE [id number] SP [id number] MEDICARE COMPLETE [id number] SP [id number] ANSI-Medicare Part B [id number] ANSI-Medicare Part B [id number] MEDICARE UNK SP [id number] ANSI-Medicare Part B [id number] ANSI-Medicare Part B [id number] ANSI-Medicare Part B [id number] ANSI-Medicare Part B [id number] ANSI-Medicare Part B [id number] ANSI-Medicare Part B [id number] ANSI-Medicare Part B [id number] ANSI-Medicare Part B [id number] ANSI-Medicare Part B [id number] ANSI-Medicare Part B [id number] ANSI-Medicare Part B [id number] ANSI-Medicare Part B [id number] ANSI-Medicare Part B [id number] ANSI-Medicare Part B [id number] ANSI-Medicare Part B [id number] ANSI-Medicare Part B [id number] [facility]-Medicare Part B [id number] [facility]-Medicare Part B [id number] MEDICARE COMPLETE [id number] SP [id number] MEDICARE COMPLETE-[facility] O [id number] S [id number] [employer] OPTIONS/CZECH O [id number] S [id number] [employer] OPTIONS [id number] SP [id number] MEDICARE [id number] SP [id number] A MEDICARE C [id number] S [id number] A MEDICARE [id number] SP [id number] A P UNAVAILABLE UNAVAILA BLE [id number] A Problems, Conditions, and Diagnoses Code Display Name Description Problem Type Effective Dates Data Source(s) R45.89 [id number] Need for emotional support Problem 0 12:00:00 AM EST eCW1 ([facility]) N90.4 [id number] Lichen sclerosus of female genitalia Prob liv 07/31/2020 12:00:00 AM EST eCW1 ([facility]) N95.2 [id number] Vaginal atrophy Problem 07/25/2020 12:00:00 AM EST eCW1 ([facility]) F03.90 [id number] Dementia without beh avioral disturbance, unspecified dementia type Problem 07/25/2020 12:00:00 AM EST eCW1 ([facility]) Z53.20 [id number] 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 Pro blem 06/11/2020 12:00:00 AM EDT eCW1 ([facility]) Z53.20 [id number] Patient refused evaluation or treatment P roblem 06/11/2020 12:00:00 AM EDT eCW1 ([facility]) Z91.89 [id number] Driving safety issue Problem 06/11/2020 12:0 0:00 AM EDT eCW1 ([facility]) R47.89 [id number] Word finding difficulty Problem 06/11/2020 1 2:00:00 AM EDT eCW1 ([facility]) G45.9 [id number] TIA (transient ischemic attack) Problem 06/03/2020 12:00:00 AM EDT eCW1 ([facility]) R55 [id number] Recurrent syncope Problem 02/21/2020 12:00:0 0 AM EDT eCW1 ([facility]) Surgeries/Procedures Procedure Description Date Indications Data Source(s) Office Visit, Est Pt., Level 3 PC 07/29/2019 12:00:00 AM EST eCW1 ([facility]) Office Visit, Est Pt., Level 3 FC 07/29/2019 12:00:00 AM EST eCW1 ([facility]) Social History Code Duration Value Status Description Data Source(s ) Smoking 07/25/2020 12:00:00 AM EST Never Smoker completed Never S moker eCW1 ([facility]) Smoking 07/25/2020 12:00:00 AM EST Never Smoker completed Never S moker eCW1 ([facility]) Smoking 07/25/2020 12:00:00 AM EST Never Smoker completed Never S moker eCW1 ([facility]) Smoking 07/25/2020 12:00:00 AM EST Never Smoker completed Never S moker eCW1 ([facility]) Smoking 07/25/2020 12:00:00 AM EST Never Smoker completed Never S moker eCW1 ([facility]) Smoking 06/14/2020 12:00:00 AM EST Never Smoker completed Never S moker eCW1 ([facility]) Smoking 06/14/2020 12:00:00 AM EST Never Smoker completed Never S moker eCW1 ([facility]) Smoking 06/14/2020 12:00:00 AM EST Never Smoker completed Never S moker eCW1 ([facility]) Smoking 06/14/2020 12:00:00 AM EST Never Smoker completed Never S moker eCW1 ([facility]) Smoking 06/14/2020 12:00:00 AM EST Never Smoker completed Never S moker eCW1 ([facility]) Smoking 02/27/2020 12:00:00 AM EDT Never Smoker completed Never S moker eCW1 ([facility]) Smoking 02/27/2020 12:00:00 AM EDT Never Smoker completed Never S moker eCW1 ([facility]) Smoking 01/20/2020 12:00:00 AM EDT Never Smoker completed Never S moker eCW1 ([facility]) Smoking 07/29/2019 12:00:00 AM EST Never Smoker completed Never S moker eCW1 ([facility]) Vital Signs ID Date Data Source UNK Name Value Range Interpretation Code Description Data Source(s) Diastolic blood pressure 82 mm[Hg] 82 mm[Hg] eCW1 ([facility]) Systolic blood pressure 146 mm[Hg] 146 mm[Hg] e CW1 ([facility]) Body temperature 98.0 [degF] 98.0 [degF] eCW1 ( [facility]) Respiratory rate 18 /min 18 /min eCW1 ([facility]) Heart rate 80 /min 80 /min eCW1 ([facility]) Body mass index (BMI) [Ratio] 25.99 kg/m2 25.99 kg/m2 W1 ([facility]) Body height 65 [in_i] 65 [in_i] W1 ([facility]) Body weight 156.2 [lb_av] 156.2 [lb_av] eCW1 ([facility]) Diastolic blood pressure 62 mm[Hg] 62 mm[Hg] eCW1 ([facility]) Systolic blood pressure 118 mm[Hg] 118 mm[Hg] e CW1 ([facility]) Body temperature 97.5 [degF] 97.5 [degF] eCW1 ( [facility]) Respiratory rate 18 /min 18 /min eCW1 ([facility]) Heart rate 82 /min 82 /min eCW1 ([facility]) Body mass index (BMI) [Ratio] 25.49 kg/m2 25.49 kg/m2 eCW1 ([facility]) Body height 65 [in_i] 65 [in_i] eCW1 ([facility]) Body weight 153.2 [lb_av] 153.2 [lb_av] eCW1 ([facility]) Diastolic blood pressure 82 mm[Hg] 82 mm[Hg] eCW1 ([facility]) Systolic blood pressure 120 mm[Hg] 120 mm[Hg] e CW1 ([facility]) Body temperature 97.6 [degF] 97.6 [degF] eCW1 ( [facility]) Respiratory rate 20 /min 20 /min eCW1 ([facility]) Heart rate 86 /min 86 /min eCW1 ([facility]) Body mass index (BMI) [Ratio] 25.56 kg/m2 25.56 kg/m2 eCW1 ([facility]) Body height 65 [in_i] 65 [in_i] eCW1 ([facility]) Body weight 153.6 [lb_av] 153.6 [lb_av] eCW1 ([facility]) Diastolic blood pressure 70 mm[Hg] 70 mm[Hg] eCW1 ([facility]) Systolic blood pressure 124 mm[Hg] 124 mm[Hg] e CW1 ([facility]) Body temperature 98 [degF] 98 [degF] eCW1 ([facility]) Respiratory rate 20 /min 20 /min eCW1 ([facility]) Heart rate 77 /min 77 /min eCW1 ([facility]) Body mass index (BMI) [Ratio] 26.06 kg/m2 26.06 kg/m2 eCW1 ([facility]) Body height 65 [in_us] 65 [in_us] eCW1 ([facility]) Body weight Measured 156.6 [lb_av] 156.6 [lb_av ] eCW1 ([facility]) Patient Treatment Plan of Care Planned Activity Planned Date Details Description Data Source (s) Estradiol 0.1 MG/ML Vaginal Cream 08/04/2020 12:00:00 AM EST eCW1 ([facility]) Estradiol 0.1 MG/ML Vaginal Cream 08/04/2020 12:00:00 AM EST eCW1 ([facility]) Clobetasol Propionate 0.0005 MG/MG Topical Ointment 07/29/20 20 12:00:00 AM EST eCW1 ([facility]) Clobetasol Propionate 0.0005 MG/MG Topical Ointment 07/29/20 20 12:00:00 AM EST eCW1 ([facility]) Clobetasol Propionate 0.0005 MG/MG Topical Ointment 07/29/20 20 12:00:00 AM EST eCW1 ([facility]) Clobetasol Propionate 0.0005 MG/MG Topical Ointment 07/29/20 20 12:00:00 AM EST eCW1 ([facility]) Clobetasol Propionate 0.0005 MG/MG Topical Ointment 07/29/20 20 12:00:00 AM EST [email or web address] ([facility]) Estrogens, Conjugated (PENITENTIARY) 0.625 MG/ML Vaginal Cream [Premarin] 07/25/2020 12:00:00 AM EST eCW1 ([facility]) Estrogens, Conjugated (PENITENTIARY) 0.625 MG/ML Vaginal Cream [Premarin] 07/25/2020 12:00:00 AM EST eCW1 ([facility]) Estrogens, Conjugated (PENITENTIARY) 0.625 MG/ML Vaginal Cream [Premarin] 07/25/2020 12:00:00 AM EST eCW1 ([facility]) Estrogens, Conjugated (PENITENTIARY) 0.625 MG/ML Vaginal Cream [Premarin] 07/25/2020 12:00:00 AM EST eCW1 ([facility]) Estrogens, Conjugated (PENITENTIARY) 0.625 MG/ML Vaginal Cream [Premarin] 07/25/2020 12:00:00 AM EST eCW1 ([facility]) Scooter Chair 01/20/2020 12:00:00 AM EDT eCW1 ([facility]) Ibuprofen 600 MG Oral Tablet 01/20/2020 12:00:00 AM EDT eCW1 ([facility]) Scooter Chair 01/20/2020 12:00:00 AM EDT eCW1 ([facility])
--- NOTE | 2020-08-24 21:48 | HPEPDOC ---
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 Patient endorses that yesterday she noticed she was not understanding others she waited and it resolved on its own and did not come to the hospital this morning it recurred again and was associated with a mild headache her friend noticed that briefly her speech was not making sense and she was not paying attention and prompted her to come to the hospital. Currently in the hospital patient says her symptoms have resolved and she feels well during my discussion with her her speech was clear but she is hard of hearing. She denies a headache. Denies any chest pain or palpitations. She does endorse having residual left lower extremity and right upper extremity weakness from prior CVA but she cannot tell me the approximate date when it last happened. She lives alone at home with her dog. Patient has not noticed any new weakness during these episodes and is currently asymptomatic feeling back to her baseline. PAST MEDICAL/SURGICAL HISTORY: Hypothyroidism takes Synthroid Cholecystectomy Hysterectomy Appendectomy Tonsillectomy SOCIAL HISTORY: Drinks alcohol socially only Denies tobacco use Denies illicit drug use FAMILY HISTORY: Reviewed and none contributory to this admission ALLERGIES: Please see below. REVIEW OF SYSTEMS: 10 point review of systems complete all negative otherwise stated in HPI HOME MEDICATIONS: Please see below. PHYSICAL EXAMINATION: Constitutional: Awake and alert, in no apparent distress ENT: Sclera are clear. Mucosa is moist. Respiratory: Lungs CTA bilaterally. No respiratory distress. Cardiovascular: RRR S1 and S2 are normal, no murmur Gastrointestinal: Abdomen is soft, non distended, non tender, BS present. Musculoskeletal: No lower extremity edema Mental Status: A&O x3, normal affect Skin: Warm, dry mental status: The patient is awake, alert, oriented to name, location, and date. Cranial nerves: Pupils are equal, round, and reactive to light. Extraocular muscles intact. Visual wahl full bilaterally. Smile is symmetrical. Tongue is midline. Intact sensation on both sides of face. Motor: extremities without any drifting. Slight decrease in strength of RUE and LLE which patient states is prior prior CVA. Sensory: Intact to sensation bilaterally. Reflexes: Symmetrical, non-hyperreflexic. Not pathological. Coordination: [id number] grossly intact. LABORATORY DATA: See below. IMAGING: See chart MICROBIOLOGY: Please see below. 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 # Suspected TIA: CT head shows no acute intracranial abnormality. Ordered MRI /MRA brain,duplex carotid, Echo. passed bedside swallow - regular diet. PT/OT. Admit for observation on tele. Fall & seizure precautions. ASA and stain. # History CVA with residual weakness: Continue aspirin and statin # Hypothyroidism: resume Synthroid. # DVT prophylaxis: Heparin A Yousef Hospitalist Vital Signs Vital Signs Date Time Temp Pulse Resp B/P (MAP) Pulse Ox O2 Delivery O2 Flow Rate FiO2 08/24/20 17:40 98.4 78 26 155/84 (107) 98 Laboratory Data Labs 24H Laboratory Tests 2 08/24/20 18:43: Immature Granulocyte % (Auto) 0.2, Neutrophils (%) (Auto) 61.1, Lymphocytes (%) (Auto) 25.0, Monocytes (%) (Auto) 10.4H, Eosinophils (%) (Auto) 2.7, Basophils (%) (Auto) 0.6, Neutrophils # (Auto) 5.9, Lymphocytes # (Auto) 2.4, Monocytes # (Auto) 1.0H, Eosinophils # (Auto) 0.3, Basophils # (Auto) 0.1, Nucleated Red Blood Cells % (auto) 0.0, Prothrombin Time 13.4, Prothromb Time International Ratio 1.00, Activated Partial Thromboplast Time 26.2, Anion Gap 5L, Glomerular Filtration Rate > 60.0, Calcium Level 9.3, Total Creatine Kinase 55, Creatine Kinase MB 1.4, Creatine Kinase MB Relative Index 2.55, Troponin I < 0.02 CBC/BMP Laboratory Tests 08/24/20 18:43 Microbiology Microbiology 08/24/20 Respiratory Virus Panel (PCR) ([facility]) - Final, Complete Home Medications Scheduled Aspirin (Aspirin) 325 Mg Tablet, 325 MG PO DAILY Levothyroxine Sodium (Levothyroxine Sodium) 75 Mcg Tablet, 75 MCG PO QAM Allergies Coded Allergies: Penicillins (Verified Allergy, Severe, DIFFICULTY BREATHING, 08/24/20) shellfish derived (Verified Allergy, Severe, HIVES,DIFFICULTY BREATHING, 08/24/20) ciprofloxacin (Verified Adverse Reaction, Intermediate, ATAXIA, 08/24/20) codeine (Verified Adverse Reaction, Unknown, DISORIENTED, 08/24/20) tramadol (Verified Adverse Reaction, Unknown, N/V, 08/24/20) A-FIB/CHADSVASC A-FIB History Current/History of A-Fib/PAF?: No YOUSEFMAGEN MD Aug 24, 2020 21:48
[2020-08-24 23:00] VITALS: BP 148/88
--- NOTE | 2020-08-25 00:10 | REPVR ---
PROCEDURE INFORMATION: Exam: MR Head Without Contrast Exam date and time: 08/24/2020 11:03 PM Age: 84 years old Clinical indication: Weakness, extremity; Bilateral; Patient HX: Bilat weakness since subsided; Additional info: Stroke workup TECHNIQUE: Imaging protocol: MR of the head without contrast. COMPARISON: CT Head without contrast 08/24/2020 6:11 PM FINDINGS: Brain: There is a small focus of diffusion hyperintensity within the medial left occipital lobe, which is iso- to hypointense on the ADC trace sequence. This is consistent with an acute or subacute lacunar infarct. There are moderate additional patchy FLAIR hyperintensity within the cerebral white matter, with additional periventricular gliosis. There is no mass effect or restricted diffusion associated with these findings. In a patient this age, this likely represents chronic small vessel ischemic disease. Tiny T2 hyperintense/FLAIR hypointense dilated perivascular spaces or chronic lacunar infarcts are seen within the bilateral cerebral white matter. T2 hyperintensity is seen within the slick, right cerebellar white matter, bilateral external capsules, and bilateral posterior limbs of the internal capsules, likely representing chronic ischemic changes. The vertebrobasilar arterial system causes mild flattening of the left ventral border of the slick. Cerebral ventricles: T2 hyperintense choroid plexus cysts are visualized bilaterally. There is mild to moderate prominence of the ventricles, with mild prominence of sulci, compatible with atrophy. Bones/joints: Unremarkable, as visualized. Paranasal sinuses: Mucosal thickening of mid to anterior ethmoid air cells bilaterally. Mastoid air cells: Minimal mucosal thickening/effusions within mastoid air cells. Orbits: Bilateral orbital lens implants. Soft tissues: Unremarkable, as visualized. IMPRESSION: 1. There is a small focus of diffusion hyperintensity within the medial left occipital lobe, consistent with an acute or subacute lacunar infarct. 2. Moderate additional white matter disease, likely representing chronic small vessel ischemic disease. 3. Additional chronic ischemic changes noted above. 4. Mild to moderate atrophy. 5. Additional findings described above. Electronically signed by: Kole Huang On 08/25/2020 00:09:59 AM
--- NOTE | 2020-08-25 00:26 | REPVR ---
PROCEDURE INFORMATION: Exam: MR Angiogram Head Without Contrast, Arteries Exam date and time: 08/24/2020 11:03 PM Age: 84 years old Clinical indication: Patient HX: Bilat weakness since subsided; Additional info: Stroke workup TECHNIQUE: Imaging protocol: MR angiogram head without contrast. Exam focused on the arteries. 3D rendering (Not supervised by radiologist): MIP and/or 3D reconstructed images were created by the technologist. COMPARISON: MRA BRAIN W/O CONTRAST 12/26/2015 5:11 PM FINDINGS: ANTERIOR CIRCULATION: Right internal carotid artery: Intracranial segment is patent with no significant stenosis. No aneurysm. Right middle cerebral artery: Stenosis of an M2 segment of the right middle cerebral artery. No aneurysm. Right anterior cerebral artery: Hypoplasia of the A1 segment of the right anterior cerebral artery. No occlusion. No aneurysm. Left internal carotid artery: Intracranial segment is patent with no significant stenosis. No aneurysm. Left middle cerebral artery: No occlusion or significant stenosis. No aneurysm. Left anterior cerebral artery: No occlusion or significant stenosis. No aneurysm. POSTERIOR CIRCULATION: Right vertebral artery: No occlusion or significant stenosis. No aneurysm. Left vertebral artery: No occlusion or significant stenosis. No aneurysm. Basilar artery: No occlusion or significant stenosis. No aneurysm. Right posterior cerebral artery: Mild stenosis of the right posterior cerebral artery at the junction of the P1 and P2 segments. Stenosis of the P3 segment identified, which is severe. Additional stenosis is identified of the P2 segment of the right VARIETY LATHE OPERATOR. No aneurysm. Left posterior cerebral artery: Moderate stenosis of the left VARIETY LATHE OPERATOR at the junction of the P1 and P2 segments, severe stenosis of the P3 segment. No aneurysm. IMPRESSION: 1. Bilateral VARIETY LATHE OPERATOR stenoses. Left VARIETY LATHE OPERATOR stenoses are new compared to the prior study. 2. Stenosis of an M2 segment of the right middle cerebral artery. 3. Additional findings described above. Electronically signed by: Kole Huang On 08/25/2020 00:25:43 AM
--- NOTE | 2020-08-25 00:50 | ECGEPIP ---
[facility] - ED Test Date: 2020-08-24 Pat Name: ASTER PABLO Department: Room: - Gender: Female Professor Of Fine Art: MALINDA : 1935 Requested By: Victoriano Roberts Order Number: [id number] Reading MD: Victoriano Ivy Measurements Intervals [place] Rate: 71 P: 41 [place]: 202 QRS: 4 QRSD: 92 T: 12 QT: 398 QTc: 432 Interpretive Statements SINUS RHYTHM MODERATE VOLTAGE CRITERIA FOR LVH, CONSIDER NORMAL VARIANT POSSIBLE INFERIOR MYOCARDIAL INFARCTION, PROBABLY OLD SIMILAR TO 07/21/19 Electronically Signed on 08-25-2020 0:50:23 EST by Victoriano Ivy
[2020-08-25 04:00] VITALS: BP 147/78
[2020-08-25 07:15] LABS: HEMATOCRIT 39.2 % (36.0-47.0); HEMOGLOBIN 12.7 g/dl (12.0-15.5); MEAN CORPUSCULAR HEMOGLOBIN 29.3 pg (27.0-33.0); MEAN CORPUSCULAR HGB CONC 32.4 g/dl (32.0-36.5); MEAN CORPUSCULAR VOLUME 90.5 fl (80.0-96.0); PLATELET COUNT, AUTOMATED 243 10^3/uL (150-450); RED BLOOD COUNT 4.33 10^6/uL (4.00-5.40); WHITE BLOOD COUNT 7.3 10^3/uL (4.0-10.0)
[2020-08-25 07:39] LABS: BLOOD UREA NITROGEN 13 MG/DL (7-18); CALCIUM LEVEL 8.9 MG/DL (8.8-10.2); CARBON DIOXIDE LEVEL 26 MEQ/L (21-32); CHLORIDE LEVEL 109 MEQ/L (98-107); CREATININE FOR GFR 0.81 MG/DL (0.55-1.30); GLOMERULAR FILTRATION RATE > 60.0 (>32); GLUCOSE, FASTING 90 MG/DL (70-100); POTASSIUM SERUM 3.9 MEQ/L (3.5-5.1); SODIUM LEVEL 140 MEQ/L (136-145)
[2020-08-25 08:00] VITALS: BP 153/86
[2020-08-25] MEDS ORDERED: ASPIRIN 325 MG TAB PO SCH (09:00)
[2020-08-25] MEDS: LEVOTHYROXINE 75MCG TABLET (0.075MG) PO SCH (09:20)
[2020-08-25] MEDS: HEPARIN SOD (PORCINE) 5000UNITS/ML 1ML VIAL/SYRINGE SQ SCH ×2 (09:20→20:58)
[2020-08-25 12:00] VITALS: BP 155/79
--- NOTE | 2020-08-25 14:07 | REP ---
INDICATION: Stroke workup COMPARISON: 11/17/2013. TECHNIQUE: Real-time ultrasound evaluation and duplex Doppler interrogation of the extracranial carotid vasculature is performed. FINDINGS: There is mild plaquing and narrowing in both carotid bulbs extending into the internal and external carotid arteries. Luminal narrowing is less than 50%. There is no evidence of hemodynamically significant stenosis of either internal carotid artery. Normal flow velocities are seen. The vertebral arteries demonstrate normal direction of flow. RIGHT LEFT Peak systolic velocity ICA 33.8 cm/s 66.9 cm/s End diastolic velocity ICA 9.5 cm/s 20.7 cm/s Peak systolic velocity CCA 67.4 cm/s 75.1cm/s Peak systolic velocity ECA 47.3 cm/s 53.8 cm/s ICA/CCA ratio 0.50 0.89 IMPRESSION: Bilateral luminal narrowing of the internal carotid arteries less than 50%. No evidence of hemodynamically significant stenosis. <Electronically signed by Casa Peñaloza > 08/25/20 [id number]
[2020-08-25] MEDS ORDERED: CLOPIDOGREL 75 MG TAB PO ONE (14:45)
--- NOTE | 2020-08-25 15:07 | IPNPDOC ---
Text Note Date of Service The patient was seen on 08/25/20. NOTE Subjective: No any acute events overnight. 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 CVA MRI showed a small focus of diffusion hyperintensity within the medial left occipital lobe, consistent with an acute or subacute lacunar infarct MRA Bilateral FRUIT COORDINATOR stenoses. Left FRUIT COORDINATOR stenoses are new compared to the prior study. Stenosis of an M2 segment of the right middle cerebral artery I talked to Edgardo, he recommended decrease her dose of aspirin to 81 and add Plavix 75 mg I increased the dose of atorvastatin to 40 mg. Hypothyroidism Continue Synthroid. Hypertension Patient was hypertensive on admission I will start lisinopril 20 mg VS,Fishbone, I+O VS, Fishbone, I+O Laboratory Tests 08/24/20 18:43 08/25/20 07:07 Vital Signs Date Time Temp Pulse Resp B/P (MAP) Pulse Ox O2 Delivery O2 Flow Rate FiO2 08/25/20 12:00 98.6 68 18 155/79 (104) 98 Room Air I&O- Last 24 Hours up to 6 AM 08/25/20 06:00 Output Total 200 ml Balance -200 ml YONI WARREN DO Aug 25, 2020 15:07
[2020-08-25] MEDS ORDERED: lisinopriL 10 MG TAB PO ONE (15:45)
[2020-08-25 16:00] VITALS: BP 155/90
[2020-08-25 20:00] VITALS: BP 142/84
[2020-08-25] MEDS ORDERED: ATORVASTATIN 20 MG TAB PO SCH (21:00)
[2020-08-26] VITALS: BP 140/68
[2020-08-26 04:00] VITALS: BP 144/70
[2020-08-26 08:00] VITALS: BP 128/74
[2020-08-26] MEDS: LEVOTHYROXINE 75MCG TABLET (0.075MG) PO SCH (08:27)
[2020-08-26 08:28] VITALS: BP 144/70
[2020-08-26] MEDS: HEPARIN SOD (PORCINE) 5000UNITS/ML 1ML VIAL/SYRINGE SQ SCH (08:28)
[2020-08-26] MEDS ORDERED: lisinopriL 10 MG TAB PO SCH (09:00)
[2020-08-26] MEDS ORDERED: CLOPIDOGREL 75 MG TAB PO SCH (09:00)
[2020-08-26] MEDS ORDERED: ASPIRIN 81 MG ENTERIC TAB PO SCH (09:00)
[2020-08-26] MEDS ORDERED: ASPI81TAEC PO (09:39)
[2020-08-26] MEDS ORDERED: LISI10TA4 PO (09:39)
[2020-08-26] MEDS ORDERED: CLOP75TA2 PO (09:39)
[2020-08-26] MEDS ORDERED: ATOR1TAB21 PO (09:39)
--- NOTE | 2020-08-26 12:58 | ECHO ---
DATE OF PROCEDURE: 08/25/2020 Age: 84 Gender: Female Height: 65 inches Weight: 149 pounds Body surface area: 1.75 m2 PATIENT LOCATION: Inpatient PCU, Room 3233. REFERRING PHYSICIAN: Fahad Qureshi MD INDICATION: Transient ischemic attack (TIA) cardiac source of embolic material ? MEASUREMENTS: 2D Measurements: RV 2.6 cm LV 4.5 cm Septum 0.9 cm Posterior wall 0.9 cm Aortic Root 3.0 cm LA 3.6 cm LVEF 75% Doppler Measurements: AV 1.22 m/s LVOT 1.12 m/s MV-E 77, A 100, E/A ratio 0.8 Early mitral deceleration time 288 msec E prime medial 5.4, A prime medial 10, E prime lateral 7.8 Average E/E prime ratio 11.7/PCWP 16.4 mmHg PV 0.9 m/s Pulmonary artery acceleration time 119 msec RVSP 29 mmHg IVC 1.5 cm COMMENTS: Normal sinus rhythm without intraventricular conduction disturbance. M-mode and two-dimensional echocardiography was performed with pulse, continuous wave, color flow, and tissue Doppler studies. There was also a saline contrast study performed from the apical four chamber projection with and without Valsalva. Normal left ventricular size, wall thickness, and hyperkinetic wall motion. Left atrial size upper limits of normal with grade 1 LV diastolic dysfunction, but currently normal estimated mean left atrial pressure. Normal right heart chamber sizes and motion and estimated pulmonary arterial pressure. Normal IVC size and collapse against an elevated central venous pressure. Normal aortic dimensions. Mild aortic valvular sclerosis without functional abnormality. Normal appearing mitral valve apparatus and leaflet excursion with no more than trace insufficiency. Normal appearing tricuspid valve with mild insufficiency. No apparent intracardiac mass or pericardial effusion. Negative saline contrast study with and without Valsalva excellent opacification of the right heart chambers was achieved with rapid saline bolus of contrast. There was no contrast reaching the left atrium or left ventricle. [facility]
--- NOTE | 2020-08-26 18:58 | DS.PDOC ---
Discharge Summary General Date of Admission Aug 25, 2020 at 14:44 Date of Discharge 08/26/20 Discharge Summary PROCEDURES PERFORMED DURING STAY: [None]. ADMITTING DIAGNOSES: CVA Hypothyroidism Hypertension DISCHARGE DIAGNOSES: CVA Hypothyroidism Hypertension COMPLICATIONS/CHIEF COMPLAINT: Hypothyroidism,Tia. 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 HOSPITAL COURSE: During hospital stay the following issues addressed CVA MRI showed a small focus of diffusion hyperintensity within the medial left occipital lobe, consistent with an acute or subacute lacunar infarct MRA Bilateral MOVE COORDINATOR stenoses. Left MOVE COORDINATOR stenoses are new compared to the prior study. Stenosis of an M2 segment of the right middle cerebral artery I talked to Edgardo, he recommended decrease her dose of aspirin to 81 and add Plavix 75 mg I increased the dose of atorvastatin to 40 mg. Hypothyroidism Continue Synthroid. Hypertension Patient was hypertensive on admission I will start lisinopril 20 mg DISCHARGE MEDICATIONS: Please see below. ALLERGIES: Please see below. PHYSICAL EXAMINATION ON DISCHARGE: VITAL SIGNS: Please see below. GENERAL APPEARANCE: NAD HEENT: no scleral icterus, no JVD, EOMI CARDIOVASCULAR: S1S2 LUNGS: CTA ABDOMEN: soft & not tender w palpitation MUSCULOSKELETAL: no cyanosis, no swelling INTEGUMENT: no generalized palor NEUROLOGICAL: cranial nerve function from 2-12 intact intact, follows commands, speech not dysarthric LABORATORY DATA: Please see below. IMAGING: see above PROGNOSIS: fair ACTIVITY: [As tolerated]. Diet cardiac DISPOSITION: 01 Home, Self-Care. ITEMS TO FOLLOWUP ON ON OUTPATIENT: Follow-up with PCP and neurologist DISCHARGE CONDITION: [Stable]. TIME SPENT ON DISCHARGE: Greater than 30 minutes. Vital Signs/I&Os Vital Signs Date Time Temp Pulse Resp B/P (MAP) Pulse Ox O2 Delivery O2 Flow Rate FiO2 08/26/20 08:28 144/70 08/26/20 08:00 97.4 73 16 96 Room Air I&O- Last 24 Hours up to 6 AM 08/26/20 05:59 Intake Total 1260 ml Balance 1260 ml Microbiology Microbiology 08/24/20 Respiratory Virus Panel (PCR) ([facility]) - Final, Complete Discharge Medications Scheduled Aspirin (Aspirin EC) 81 Mg Tablet.dr, 81 MG PO DAILY Atorvastatin Calcium (Atorvastatin Calcium) 20 Mg Tablet, 40 MG PO QHS Clopidogrel Bisulfate (Clopidogrel) 75 Mg Tablet, 75 MG PO DAILY Levothyroxine Sodium (Levothyroxine Sodium) 75 Mcg Tablet, 75 MCG PO QAM, (Reported) Lisinopril (Lisinopril) 10 Mg Tablet, 10 MG PO DAILY Allergies Coded Allergies: Penicillins (Verified Allergy, Severe, DIFFICULTY BREATHING, 08/24/20) shellfish derived (Verified Allergy, Severe, HIVES,DIFFICULTY BREATHING, 08/24/20) ciprofloxacin (Verified Adverse Reaction, Intermediate, ATAXIA, 08/24/20) codeine (Verified Adverse Reaction, Unknown, DISORIENTED, 08/24/20) tramadol (Verified Adverse Reaction, Unknown, N/V, 08/24/20) YONI WARREN DO Aug 26, 2020 18:58
== END 2020-08-26 11:09 | disposition home or self-care (01) | DRG 66 ==
LOC: EDBD 17:23 → M ED 17:23 → M ED INP 17:24 → M PCU 22:54 → OBSVTOIN 08-25 14:44
PROVIDERS: ADMIT Family Medicine; ATTEND Internal Medicine
DX: I63.9 Cerebral infarction, unspecified (principal); I69.331 Monoplegia of upper limb following cerebral infarction affecting right dominant side; I69.344 Monoplegia of lower limb following cerebral infarction affecting left non-dominant side; E03.9 Hypothyroidism, unspecified; I10 Essential (primary) hypertension; Z79.82 Long term (current) use of aspirin; Z79.899 Other long term (current) drug therapy; Z88.0 Allergy status to penicillin; Z91.013 Allergy to seafood; Z88.5 Allergy status to narcotic agent; Z88.8 Allergy status to other drugs, medicaments and biological substances

== ENCOUNTER → 2020-09-09 | Outpatient (REF) | payer MEDICARE ==
[~2020-09-09] MED LIST changes: +ASPI-559 PO; +ASPI81TAEC PO; +ATOR1TAB21 PO; +CLOP75TA2 PO; +LISI10TA4 PO
[2020-09-09 17:43] LABS: CHOLESTEROL RISK RATIO 2.402 (<5)
== END ==
LOC: M SFHCPLAZ 14:09
DX: E03.9 Hypothyroidism, unspecified (principal)

== ENCOUNTER 2021-06-21 10:18 | Inpatient (IN) | payer MEDICARE ==
[~2021-06-21] VITALS: Ht 165.1 cm; Wt 68.6 kg
[~2021-06-21 10:18] MED LIST changes: -ASPI-559 PO; +ASPI-569 PO; +ASPI-584 PO; -ASPI81TAEC PO; +LISI10TA22 PO; -LISI10TA4 PO
--- NOTE | 2021-06-21 11:14 | REP ---
INDICATION: trauma. COMPARISON: CT abdomen pelvis 12/10/2014 TECHNIQUE: AP pelvis with 2 hip images FINDINGS: AP pelvis: Pelvic ring intact. SI joints symmetric sacral ala and foramina intact. Iliac wings without fracture or focal lesion. Some minor degenerative changes right greater than left hip joint. No gross evidence of fracture about either hip. Pubic rami and symphysis pubis unremarkable. Right hip: Two views show ossific density adjacent to the greater trochanter likely at the tendinous insertion. There are degenerative changes at the hip joint space without joint space narrowing but with some sclerosis of the acetabular roof. No AVN or fracture of the hips. Trochanteric and sub trochanteric femur unremarkable. IMPRESSION: 1. Degenerative changes at the hip but without visible or displaced fracture, avulsion, AVN or other acute finding. <Electronically signed by Geovanny Cummins > 06/21/21 [id number]
--- NOTE | 2021-06-21 11:17 | REP ---
INDICATION: Altered Mental Status. COMPARISON: 08/24/2020, 01/14/2020 TECHNIQUE: AP seated FINDINGS: Lungs only marginally adequate in degree of inflation. There is diffuse underlying interstitial fibrosis, heaviest in the peripheries and bases. No dense consolidation or pleural effusion. COPD and emphysematous changes. Heart not grossly enlarged. Left atrium is enlarged. The aorta is calcified at the arch and tortuous but without aneurysm. Airway intact. Dextroconvex curvature of the lower thoracic spine. Degenerative changes of the spine and shoulders. No free air under the diaphragm. IMPRESSION: 1. COPD and fairly extensive fibrosis, pattern and extent unchanged. There is underlying emphysematous changes without cardiomegaly or jose edema. No gross effusion or acute infiltrate suggested at this time. <Electronically signed by Geovanny Cummins > 06/21/21 [id number]
--- NOTE | 2021-06-21 11:29 | REP ---
INDICATION: Altered Mental Status. COMPARISON: None. TECHNIQUE: Trauma protocol with coronal and sagittal reconstructions. FINDINGS: The sagittal reconstruction show diffuse cervical spondylosis from C3-4 through C6-7. Posterior osteophytes are seen from C4-5 through C6-7. There are small osteophytes anteriorly at C7-T1. No compression deformity or destructive lesion is seen disc spaces are slightly narrowed at C 6 7 and C7-T1 less at C4-5. The dens was intact and shows the degenerative changes of the in relationship to the anterior arch of C1. There is [id number] appearance there and also degenerative changes with narrowing of its space between the lateral mass of C1 on the left and the dens no fracture through the dens. The ring of C1 is intact. Craniocervical junction shows degenerative changes anteriorly but no malalignment. Cervicothoracic junction also grossly intact. Spinous processes, lamina, pedicles, facets and transverse processes show no fractures. There is extensive facet arthropathy at C3-4 and C4-5 with uncinate spurs at multiple levels. There is minor central canal stenosis at C6-7 with adequate central canal at all other levels. Some mild encroachment on the foramina at the C4-5, right foramen at C3-4 and bilateral foramina at C5-6. C6-7 foramina marginally adequate. Others no prevertebral swelling. Those portions of the 1st 4 paired ribs included in the field of view were grossly intact. Minimal visualization of lung apices showing some chronic fibrotic changes and calcified granuloma in the right upper lobe. IMPRESSION: 1. Cervical spondylosis with posterior osteophytes, disc space narrowing, uncinate and facet arthropathy without compression fracture or malalignment. Minor central canal stenosis and some mild foraminal encroachment at the levels described. 2. No prevertebral swelling. Dens intact but with degenerative changes in relationship to C1. No acute finding. <Electronically signed by Geovanny Cummins > 06/21/21 [id number]
--- NOTE | 2021-06-21 11:38 | REP ---
INDICATION: Altered Mental Status. COMPARISON: 08/24/2020 TECHNIQUE: 5 mm axial images head without contrast. FINDINGS: Scans windowed for bone demonstrate the paranasal sinuses to be clear with no air-fluid levels. The mastoids are normally aerated. No fracture of the calvarium is identified. Scans windowed for brain parenchyma fail to demonstrate any evidence of a mass, hemorrhage or an acute infarct. Low-density areas scattered throughout the deep white matter most likely represent changes of ischemic demyelinization. Additionally there probably are remote lacunar infarcts involving the anterior limbs of both internal capsules and the left putamen which were previously present. IMPRESSION: Diffuse changes consistent with ischemic demyelinization. 2. Remote lacunar infarcts. 3. No definite acute change is appreciated. <Electronically signed by Jason Orourke > 06/21/21 [id number]
[2021-06-21 11:51] LABS: VENOUS BASE EXCESS -1.1 (-2.0-2.0); VENOUS HCO3 24.1 MEQ/L (23.0-27.0); VENOUS O2 SATURATION 58.9 % (60.0-80.0); VENOUS PARTIAL PRESSURE CO2 41.9 mmHg (38.0-50.0); VENOUS PARTIAL PRESSURE O2 29.9 mmHg (30.0-50.0); VENOUS PH 7.377 UNITS (7.330-7.430); VENOUS STANDARD HCO3 22.7 MEQ/L; VENOUS TOTAL CO2 25.3 MEQ/L (24.0-28.0)
[2021-06-21 11:55] LABS: BASO % 0.3 % (0.0-1.0); HEMATOCRIT 37.5 % (36.0-47.0); HEMOGLOBIN 12.4 g/dl (12.0-15.5); LYMPH # 0.9 10^3/uL (1.5-5.0); LYMPH % 11.5 % (24.0-44.0); MEAN CORPUSCULAR HEMOGLOBIN 27.9 pg (27.0-33.0); MEAN CORPUSCULAR HGB CONC 33.1 g/dl (32.0-36.5); MEAN CORPUSCULAR VOLUME 84.5 fl (80.0-96.0); MONO # 0.9 10^3/uL (0.0-0.8); MONO % 11.3 % (2.0-8.0); NEUTROPHILS # 5.9 10^3/uL (1.5-8.5); NEUTROPHILS % 76.1 % (36.0-66.0); PLATELET COUNT, AUTOMATED 229 10^3/uL (150-450); RED BLOOD COUNT 4.44 10^6/uL (4.00-5.40); WHITE BLOOD COUNT 7.8 10^3/uL (4.0-10.0)
[2021-06-21 12:12] LABS: OSMOLALITY SERUM 286 MOSM/KG (280-301)
[2021-06-21 12:29] LABS: ALBUMIN 3.4 GM/DL (3.2-5.2); ALT/SGPT 22 U/L (12-78); BILIRUBIN,DIRECT < 0.1 MG/DL (0.0-0.2); BILIRUBIN,TOTAL 0.6 MG/DL (0.2-1.0); BLOOD UREA NITROGEN 12 MG/DL (7-18); CALCIUM LEVEL 9.5 MG/DL (8.8-10.2); CARBON DIOXIDE LEVEL 25 MEQ/L (21-32); CHLORIDE LEVEL 104 MEQ/L (98-107); CK-MB VALUE MASS 4.6 NG/ML (<3.6); CPK CREATINE PHOSPHOKINASE 647 U/L (26-192); CREATININE FOR GFR 0.91 MG/DL (0.55-1.30); GLOMERULAR FILTRATION RATE > 60.0 (>32); GLUCOSE, FASTING 91 MG/DL (70-100); MB/CK RELATIVE INDEX 0.71 (< OR =4); POTASSIUM SERUM 4.5 MEQ/L (3.5-5.1); SODIUM LEVEL 137 MEQ/L (136-145); TOTAL PROTEIN 7.6 GM/DL (6.4-8.2); TROPONIN I < 0.02 NG/ML (< 0.10)
[2021-06-21] MEDS ORDERED: **hydrALAZINE** 10 MG TAB PO PRN (13:05)
--- OUTSIDE RECORDS SUMMARY | 2021-06-21 13:08 | CCD ---
Author Author [facility] Organization [facility] Address Unknown Phone Unavailable Care Team Providers Care Rn Interventional Name Role Phone Mario Johnson Unavailable PROBLEMS Type Condition ICD9-CM Code [id number] Code Onset Dates Condition S tatus W/U Status Risk SNOMED Code Notes Problem Hypothyroidism, unspecified E03.9 Active confirmed 81206180 Problem Decreased independence with activities of daily living Z65.8 Active confirmed 863765253 Problem Essential (primary) hypertension I10 Active conf irmed 35261817 Problem Pain in thoracic spine M54.6 Active confirmed [id number] Problem Other chronic pain G89.29 Active confirmed 8 7433739 Problem Age-related osteoporosis without current pathological fracture M81.0 Active confirmed 190237794 Problem Other secondary kyphosis, 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 Active confirmed 471447308 Problem Word finding difficulty R47.89 Active confirmed 611016633 Problem Patient refused evaluation or treatment Z53.20 Active confirmed 440945191 Problem Vitamin D deficiency, unspecified E55.9 Active con firmed 30980715 Problem Decreased hearing, unspecified laterality H91.90 Active confirmed 618090501 Problem Chronic fatigue R53.82 Active confirmed 5270 2003 Problem Reflux esophagitis K21.0 Active confirmed 2 29355703 Problem Diverticulitis K57.92 Active confirmed 01074 6006 Problem Recurrent syncope R55 Active confirmed 27 6015708 Problem Esophageal dysphagia R13.10 Active confirmed 36642762 Problem Driving safety issue Z91.89 Active confirmed 319505712 Problem TIA (transient ischemic attack) G45.9 Active confi rmed 807015835 Problem 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 Ac tive confirmed 759481021 Problem Need for emotional support R45.89 Active confirmed 859108298 Problem Lichen sclerosus of female genitalia N90.4 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 confirmed 418331986 Problem History of stroke Z86.73 Active confirmed 27 8813013 Problem Frequent falls R29.6 Active confirmed 69141 2001 Problem Unsteady gait R26.81 Active confirmed 535514 08 Problem Osteopenia of multiple sites M85.89 Active confirme d 414189178 Problem Multilevel degenerative disc disease M53.9 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 confirmed 04681242 Problem Vaginal atrophy N95.2 Active confirmed 2971 82137 Problem Dementia without behavioral disturbance, unspeci fied dementia type F03.90 Active confirmed 91186099 Problem Medical non-compliance Z91.19 Active confirmed 651354434 Problem Imbalance R26.89 Active confirmed 553427754 ALLERGIES Allergen (clinical drug ingredient) Drug/Non Drug Allergy do cumented on EMR Reaction Allergy Type Onset Date Status Shellfish Shellfish Anaphylaxis Non Drug Allergy Active ciprofloxacin Cipro(ND Code:[address]-86) memory loss, dizzy Drug A llergy Active Penicillin (For Allergies Use Only) Anaphylaxis Drug Aller gy Active codeine Codeine Sulfate(NDC Code:[address]-36) Confusion Drug Al lergy Active ENCOUNTERS from 1937 to 2021-05-04 Encounter Location Date Provider Diagnosis [place] [id number] [facility] [phone] [place] [address] Apr, Mario Johnson Hypothyroidism, unspecified E03.9 IMMUNIZATIONS Vaccine Route Administration Date Status Influenza (High Dose 65 & up) Unknown Apr 21, 2018 Ad ministered Influenza (High Dose 65 & up) Unknown May 27, 2017 Ad ministered Influenza 6mo & up Fluzone Unknown Mar 16, 2014 Admin istered Influenza 6mo & up Fluzone Unknown Apr 21, 2013 Admin istered zz*Influenza Preservative Free (36 months & up) [...] Notes Start Da te End Date Status Premarin 0.625 MG/GM 0.5g in vaginal and vaulva r egion Vaginal 21 days, off for 7 days for 21 day(s) Jul, Active Aspirin EC 81 MG 1 tablet Orally Once a day [facility] discharge 08/26 Active Atorvastatin Calcium 20 MG 1 tablet Orally Once a day at HS for 90 day(s) [facility] dISCHARGE 08/26Aug, Active Acetaminophen 500 MG 1-2 tablet as needed Orally every 6 hrs Nov, Active Scooter Chair as directed _ Daily for 9999 days Jan, Active Ankle Brace [id number] - as directed On Right Ankle Daily for 4 weeks for 30 day(s) Apr, Active Viactiv Flavor Glides 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 Clopidogrel Bisulfate 75 MG 1 tablet Orally Once a day for 3 0 Days [facility] DISCHARGE 08/26Aug, Active Meloxicam 7.5 MG 1 tablet Orally Once a day for 30 day(s) Nov, Not-Taking May Have - Power scooter - - for 999 days December, Active Hydrocortisone 2.5 % 1 application to affected ar ea: apply a thin film Externally Twice a day for 14 day(s) Apr, Active Scooter Chair as directed for 999 days Dx: R26.81 unsteady gait 16 Ap r, 2020 Active Clobetasol Propionate 0.05 % 1 application Externally Twice a day, may decreased to daily use if symptoms improvement for 21 day(s) Jul, Active Levothyroxine Sodium 75 MCG 1 tablet Orally Once a day 30 minutes before breakfast (NEEDS F/U APPT FOR MORE REFILLS) for 90 days Active Lisinopril 10 MG 1 tablet Orally Once a day for 90 day(s) [facility] di veronicarjayce 08/26Aug, Active Estradiol 0.1 MG/GM as directed applied in the v ulva and perineum area Vaginally apply once daily, two times in a week for 14 day(s) Jul, Active PROCEDURES No Information RESULTS No Results REASON FOR VISIT refill MEDICAL (GENERAL) HISTORY Type Description Date Medical [...] o health Medical History Neurologic gait dysfunction Medical History Stroke Medical History Grade 1 LV diastolic dysfunction Surgical History Tonsillectomy Surgical History Appendectomy [...] Notes Treatment Notes Treatm ent Clinical Notes Apr, Hypothyroidism, unspecified (ICD-10 - E03.9) PLAN OF TREATMENT Medication Medication Name Sig Start Date Stop Date Levothyroxine Sodium 75 MCG 1 tablet Orally Once a day 30 minutes before breakfast (NEEDS F/U APPT FOR MORE REFILLS) for 90 days Insurance Providers Payer Name Payer Address Payer Phone Insured Name Patient Relati onship to Insured Coverage Start Date Coverage End Date [employer] MED[employer]ARE [employer] [address] [facility] [id number] [employer] [place] self
--- OUTSIDE RECORDS SUMMARY | 2021-06-21 13:09 | CCD ---
Author Author [facility] Organization [facility] Address Unknown Phone Unavailable Support Name Relationship Address Phone PAO CHILDERS Next Of Kin [address] [place] [address] UE Next Of Kin Unknown Unavailable RETIRED Next Of Kin Unknown TEJAS PABLO Next Of Kin [id number] [place] [address] JONO PABLO Next Of Kin [address] [place] [address] Re-disclosure Warning The records that you are [...] is protected by Article 27-F of the [facility] Public Health law. If you continue you may have access to information: Regarding HIV / AIDS; Provided by facilities licensed or operated by the [facility] Office of Mental Health; or Provided by the [facility] Office for People With Developmental Disabilities. If such information is present, then the following [facility] mandated warning applies: This information [...] law may result in a fine or halfway sentence or both. A general authorization for the release of medical or other information is NOT sufficient authorization for further disc losure. Encounters Encounter Providers Location Date Indications Data Source(s ) Unknown [address] [facility] [address] [address] 05/03/2021 12:00:00 AM EDT [facility] Unknown [address] [address] [address] 01/25/2021 12:00:00 AM EDT [facility] [place] Unknown [address] [facility] [facility] [address] [address] 01/23/2021 12:00:00 AM EDT [facility]1 [facility] [facility] [place] [address] [facility] [address] [address] 01/06/2021 12:00:00 AM EDT [facility] [place] [address] [facility] [address] [place] [address] 01/03/2021 12:00:00 AM EDT [facility] [place] [place] [address] [facility] [address] [place] [address] 12/27/2020 12:00:00 AM EDT [facility]CW1 ([facility] [place] [facility] Unknown [address] [facility] [address] [address] 12/23/2020 12:00:00 AM EDT [facility]CW1 [facility] Out[facility] [address] [facility] [address] [place] [address] 11/25/2020 12:00:00 AM EDT [facility]CW1 [facility] [place] Unknown [address] [facility] [address] [address] 11/22/2020 12:00:00 AM EDT [facility]CW1 [facility] [facility] Unknown [address] [facility] [address] [address] 11/17/2020 12:00:00 AM EDT eCW1 ([facility]) [place] [address] [facility] [place] [address] 11/03/2020 12:00:00 AM EDT eCW1 ([facility]) [place] [address] [facility] [place] [address] 10/25/2020 12:00:00 AM EDT eCW1 ([facility]) Unknown [address] [facility] [place] [address] 10/16/2020 12:00:00 AM EST eCW1 ([facility]) [place] [address] [facility] [place] [address] 10/06/2020 12:00:00 AM EST eCW1 ([facility]) Outpatient [address] [facility] [place] [address] 10/04/2020 12:00:00 AM EST eCW1 ([facility]) Unknown [address] [facility] [place] [address] 10/03/2020 12:00:00 AM EST eCW1 ([facility]) Outpatient [address] [facility] [place] [address] 09/09/2020 12:00:00 AM EST eCW1 ([facility]) Unknown [address] [facility] [place] [address] 08/30/2020 12:00:00 AM EST eCW1 ([facility]) Unknown [address] [facility] [place] [address] 08/29/2020 12:00:00 AM EST eCW1 ([facility]) Unknown [address] [facility] [place] [address] 08/04/2020 12:00:00 AM EST eCW1 ([facility]) Unknown [address] [facility] [place] [address] 07/29/2020 12:00:00 AM EST eCW1 ([facility]) [place] [address] [facility] [place] [address] 07/25/2020 12:00:00 AM EST eCW1 ([facility]) Unknown [address] [facility] [place] [address] 07/25/2020 12:00:00 AM EST eCW1 ([facility]) Unknown [address] [facility] [place] [address] 07/24/2020 12:00:00 AM EST eCW1 ([facility]) Unknown [address] [facility] [place] [address] 06/29/2020 12:00:00 AM EST eCW1 ([facility]) Unknown [address] [facility] [place] [address] 06/27/2020 12:00:00 AM EST eCW1 ([facility]) [place] [address] [facility] [place] [address] 06/17/2020 12:00:00 AM EST eCW1 ([facility]) Unknown [address] [facility] [place] [address] 06/14/2020 12:00:00 AM EST eCW1 ([facility]) Unknown [address] [facility] [place] [address] 06/11/2020 12:00:00 AM EDT eCW1 ([facility]) Immunizations Vaccine Date Status Description Data Source(s) COVID-19 VACCINE Moderna 09/30/2020 12:00:00 AM EST completed [facility] Vaccine Series Complete: NOThis Data was Submitted to [facility]. COVID-19 VACCINE, MRNA-1273, LNP-S (MODERNA)/PF 09/30/2020 1 2:00:00 AM EST completed [facility] INFLUENZA VIRUS VACCINE QUADRIVAL SPLIT 2019-(65 YR UP)/PF 05/08/2020 12:00:00 AM EDT completed [facility] Medications Medication Brand Name Start Date Product Form Dose Route Admi nistrative Instructions Pharmacy Instructions Status Indications Reaction Description Data Source(s) 240 mcg/0.7 mL 05/07/2021 12:00:00 AM EDT syringe 0 INJECT DIRECTED INJECT DIRECTED SOLD: 05/07/2021 [facility] 75 mcg 04/27/2021 12:00:00 AM EDT tablet 90 TAKE ONE TABLET BY MOUTH EVERY DAY 30 MINUTES BEFORE BREAKFAST (NEEDS F/U APPOINTMENT FOR MORE REFILLS ) TAKE ONE TABLET BY MOUTH EVERY DAY 30 MINUTES BEFORE BREAKFAST (NEEDS F/U APPOINTMENT FOR MORE REFILLS ) SOLD: 04/27/2021 [facility] May Have - UNK 12/26/2020 12:00:00 AM EDT active May Have - eCW1 ([facility]) May Have - UNK 12/26/2020 12:00:00 AM EDT active May Have - eCW1 ([facility]) May Have - UNK 12/26/2020 12:00:00 AM EDT active May Have - eCW1 ([facility]) May Have - UNK 12/26/2020 12:00:00 AM EDT active May Have - eCW1 ([facility]) May Have - UNK 12/26/2020 12:00:00 AM EDT active May Have - eCW1 ([facility]) May Have - UNK 12/26/2020 12:00:00 AM EDT active May Have - eCW1 ([facility]) May Have - UNK 12/26/2020 12:00:00 AM EDT active May Have - eCW1 ([facility]) Scooter Chair UNK 11/25/2020 12:00:00 AM EDT acti ve [facility] eCW1 ([facility]) Scooter Chair UNK 11/25/2020 12:00:00 AM EDT acti ve [facility] eCW1 ([facility]) meloxicam 7.5 MG Oral Tablet Meloxicam 7.5 MG Meloxicam 7.5 MG 11/25/2020 12:00:00 AM EDT 1.0 {tablet} active Me loxicam 7.5 MG eCW1 ([facility]) meloxicam 7.5 MG Oral Tablet Meloxicam 7.5 MG Meloxicam 7.5 MG 11/25/2020 12:00:00 AM EDT 1.0 {tablet} active Me loxicam 7.5 MG eCW1 ([facility]) Scooter Chair UNK 11/25/2020 12:00:00 AM EDT acti ve [facility] eCW1 ([facility]) meloxicam 7.5 MG Oral Tablet Meloxicam 7.5 MG Meloxicam 7.5 MG 11/25/2020 12:00:00 AM EDT 1.0 {tablet} suspended Meloxicam 7.5 MG eCW1 ([facility]) meloxicam 7.5 MG Oral Tablet Meloxicam 7.5 MG Meloxicam 7.5 MG 11/25/2020 12:00:00 AM EDT 1.0 {tablet} active Me loxicam 7.5 MG eCW1 ([facility]) Scooter Chair UNK 11/25/2020 12:00:00 AM EDT 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 [employer] eCW1 ([facility]) meloxicam 7.5 MG Oral Tablet Meloxicam 7.5 MG Meloxicam 7.5 MG 11/25/2020 12:00:00 AM EDT 1.0 {tablet} active Me loxicam 7.5 MG eCW1 ([facility]) meloxicam 7.5 MG Oral Tablet Meloxicam 7.5 MG Meloxicam 7.5 MG 11/25/2020 12:00:00 AM EDT 1.0 {tablet} suspended Meloxicam 7.5 MG eCW1 ([facility]) Scooter Chair UNK 11/25/2020 12:00:00 AM EDT acti ve [facility] eCW1 ([facility]) Scooter Chair UNK 11/25/2020 12:00:00 AM EDT acti ve [facility] eCW1 ([facility]) meloxicam 7.5 MG Oral Tablet Meloxicam 7.5 MG Meloxicam 7.5 MG 11/25/2020 12:00:00 AM EDT 1.0 {tablet} suspended Meloxicam 7.5 MG eCW1 ([facility]) meloxicam 7.5 MG Oral Tablet Meloxicam 7.5 MG Meloxicam 7.5 MG 11/25/2020 12:00:00 AM EDT 1.0 {tablet} active Me loxicam 7.5 MG eCW1 ([facility]) meloxicam 7.5 MG Oral Tablet Meloxicam 7.5 MG Meloxicam 7.5 MG 11/25/2020 12:00:00 AM EDT 1.0 {tablet} active Me loxicam 7.5 MG eCW1 ([facility]) Scooter Chair UNK 11/25/2020 12:00:00 AM EDT acti ve [facility] eCW1 ([facility]) Scooter Chair UNK 11/25/2020 12:00:00 AM EDT acti ve [facility] eCW1 ([facility]) meloxicam 7.5 MG Oral Tablet MELOXICAM 11/25/2020 12:00:00 AM EDT tabl et 30 TAKE ONE TABLET BY MOUTH EVERY DAY WITH FOOD TAKE ONE TABLET BY MOUTH EVERY DAY WITH FOOD SOLD: 11/25/2020 [facility] Scooter Chair UNK 11/25/2020 12:00:00 AM EDT acti ve Scooter Chair eCW1 ([facility]) 75 mcg 10/05/2020 12:00:00 AM EST tablet 90 TAKE ONE TABLET BY MOUTH EVERY DAY 30 MINUTES BEFORE BREAKFAST TAKE ONE TABLET BY MOUTH EVERY DAY 30 OH NUTES BEFORE BREAKFAST SOLD: 10/05/2020 [facility] 10 mg 10/05/2020 12:00:00 AM EST tablet 90 TAKE ONE TABLET BY MOUTH EVERY DAY TAKE ONE TABLET BY MOUTH EVERY DAY SOLD: 10/05/2020 [facility] 75 mg 10/05/2020 12:00:00 AM EST tablet 30 TAKE ONE TABLET BY MOUTH EVERY DAY TAKE ONE TABLET BY MOUTH EVERY DAY SOLD: 10/05/2020 [facility] 75 mcg 10/05/2020 12:00:00 AM EST tablet 90 TAKE ONE TABLET BY MOUTH EVERY DAY 30 MINUTES BEFORE BREAKFAST TAKE ONE TABLET BY MOUTH EVERY DAY 30 OH NUTES BEFORE BREAKFAST SOLD: 01/09/2021 [facility] 75 mg 10/05/2020 12:00:00 AM EST tablet 30 TAKE ONE TABLET BY MOUTH EVERY DAY TAKE ONE TABLET BY MOUTH EVERY DAY SOLD: 11/17/2020 [facility] atorvastatin 20 MG Oral Tablet ATORVASTATIN CALCIUM 10/05/2020 1 2:00:00 AM EST tablet 90 TAKE ONE TABLET BY MOUTH AT BEDT SARAH TAKE ONE TABLET BY MOUTH AT BEDTIME SOLD: 10/05/2020 [facility] clopidogrel 75 MG Oral Tablet Clopidogrel Bisulfate 75 MG Clopidogrel Bisulfate 75 MG 08/26/2020 12:00:00 AM EST 1.0 {tablet} activ e Clopidogrel Bisulfate 75 MG eCW1 ([facility]) Lisinopril 10 MG Oral Tablet Lisinopril 10 MG 08/26/2020 12:00:00 A M EST 1.0 {tablet} active Lisinopril 10 MG eCW1 ( [facility]) atorvastatin 20 MG Oral Tablet Atorvastatin Calcium 20 MG Atorvastatin Calcium 20 MG 08/26/2020 12:00:00 AM EST 1.0 {tablet} activ e Atorvastatin Calcium 20 MG eCW1 ([facility]) clopidogrel 75 MG Oral Tablet Clopidogrel Bisulfate 75 MG Clopidogrel Bisulfate 75 MG 08/26/2020 12:00:00 AM EST 1.0 {tablet} activ e Clopidogrel Bisulfate 75 MG eCW1 ([facility]) Aspirin 81 MG Delayed Release Oral Tablet Aspirin EC 81 MG A spirin EC 81 MG 08/26/2020 12:00:00 AM EST 1.0 {tablet} active Aspirin EC 81 MG eCW1 ([facility]) atorvastatin 20 MG Oral Tablet Atorvastatin Calcium 20 MG Atorvastatin Calcium 20 MG 08/26/2020 12:00:00 AM EST 1.0 {tablet} activ e Atorvastatin Calcium 20 MG eCW1 ([facility]) Lisinopril 10 MG Oral Tablet Lisinopril 10 MG 08/26/2020 12:00:00 A M EST 1.0 {tablet} active Lisinopril 10 MG eCW1 ( [facility]) atorvastatin 20 MG Oral Tablet Atorvastatin Calcium 20 MG Atorvastatin Calcium 20 MG 08/26/2020 12:00:00 AM EST 1.0 {tablet} activ e Atorvastatin Calcium 20 MG eCW1 ([facility]) Lisinopril 10 MG Oral Tablet Lisinopril 10 MG 08/26/2020 12:00:00 A M EST 1.0 {tablet} active Lisinopril 10 MG eCW1 ( [facility]) Aspirin 81 MG Delayed Release Oral Tablet Aspirin EC 81 MG A spirin EC 81 MG 08/26/2020 12:00:00 AM EST 1.0 {tablet} active Aspirin EC 81 MG eCW1 ([facility]) clopidogrel 75 MG Oral Tablet Clopidogrel Bisulfate 75 MG Clopidogrel Bisulfate 75 MG 08/26/2020 12:00:00 AM EST 1.0 {tablet} activ e Clopidogrel Bisulfate 75 MG eCW1 ([facility]) atorvastatin 20 MG Oral Tablet Atorvastatin Calcium 20 MG Atorvastatin Calcium 20 MG 08/26/2020 12:00:00 AM EST 1.0 {tablet} activ e Atorvastatin Calcium 20 MG eCW1 ([facility]) Aspirin 81 MG Delayed Release Oral Tablet Aspirin EC 81 MG A spirin EC 81 MG 08/26/2020 12:00:00 AM EST 1.0 {tablet} active Aspirin EC 81 MG eCW1 ([facility]) atorvastatin 20 MG Oral Tablet Atorvastatin Calcium 20 MG Atorvastatin Calcium 20 MG 08/26/2020 12:00:00 AM EST 1.0 {tablet} activ e Atorvastatin Calcium 20 MG eCW1 ([facility]) Aspirin 81 MG Delayed Release Oral Tablet Aspirin EC 81 MG A spirin EC 81 MG 08/26/2020 12:00:00 AM EST 1.0 {tablet} active Aspirin EC 81 MG eCW1 ([facility]) clopidogrel 75 MG Oral Tablet Clopidogrel Bisulfate 75 MG Clopidogrel Bisulfate 75 MG 08/26/2020 12:00:00 AM EST 1.0 {tablet} activ e Clopidogrel Bisulfate 75 MG eCW1 ([facility]) Aspirin 81 MG Delayed Release Oral Tablet Aspirin EC 81 MG A spirin EC 81 MG 08/26/2020 12:00:00 AM EST 1.0 {tablet} active Aspirin EC 81 MG eCW1 ([facility]) atorvastatin 20 MG Oral Tablet Atorvastatin Calcium 20 MG Atorvastatin Calcium 20 MG 08/26/2020 12:00:00 AM EST 1.0 {tablet} activ e Atorvastatin Calcium 20 MG eCW1 ([facility]) atorvastatin 20 MG Oral Tablet Atorvastatin Calcium 20 MG Atorvastatin Calcium 20 MG 08/26/2020 12:00:00 AM EST 1.0 {tablet} activ e Atorvastatin Calcium 20 MG eCW1 ([facility]) clopidogrel 75 MG Oral Tablet Clopidogrel Bisulfate 75 MG Clopidogrel Bisulfate 75 MG 08/26/2020 12:00:00 AM EST 1.0 {tablet} activ e Clopidogrel Bisulfate 75 MG eCW1 ([facility]) clopidogrel 75 MG Oral Tablet Clopidogrel Bisulfate 75 MG Clopidogrel Bisulfate 75 MG 08/26/2020 12:00:00 AM EST 1.0 {tablet} activ e Clopidogrel Bisulfate 75 MG eCW1 ([facility]) clopidogrel 75 MG Oral Tablet Clopidogrel Bisulfate 75 MG Clopidogrel Bisulfate 75 MG 08/26/2020 12:00:00 AM EST 1.0 {tablet} activ e Clopidogrel Bisulfate 75 MG eCW1 ([facility]) atorvastatin 20 MG Oral Tablet Atorvastatin Calcium 20 MG Atorvastatin Calcium 20 MG 08/26/2020 12:00:00 AM EST 1.0 {tablet} activ e Atorvastatin Calcium 20 MG eCW1 ([facility]) clopidogrel 75 MG Oral Tablet Clopidogrel Bisulfate 75 MG Clopidogrel Bisulfate 75 MG 08/26/2020 12:00:00 AM EST 1.0 {tablet} activ e Clopidogrel Bisulfate 75 MG eCW1 ([facility]) atorvastatin 20 MG Oral Tablet Atorvastatin Calcium 20 MG Atorvastatin Calcium 20 MG 08/26/2020 12:00:00 AM EST 1.0 {tablet} activ e Atorvastatin Calcium 20 MG eCW1 ([facility]) Aspirin 81 MG Delayed Release Oral Tablet Aspirin EC 81 MG A spirin EC 81 MG 08/26/2020 12:00:00 AM EST 1.0 {tablet} active Aspirin EC 81 MG eCW1 ([facility]) Lisinopril 10 MG Oral Tablet Lisinopril 10 MG 08/26/2020 12:00:00 A M EST 1.0 {tablet} active Lisinopril 10 MG eCW1 ( [facility]) Aspirin 81 MG Delayed Release Oral Tablet Aspirin EC 81 MG A spirin EC 81 MG 08/26/2020 12:00:00 AM EST 1.0 {tablet} active Aspirin EC 81 MG eCW1 ([facility]) Lisinopril 10 MG Oral Tablet Lisinopril 10 MG 08/26/2020 12:00:00 A M EST 1.0 {tablet} active Lisinopril 10 MG eCW1 ( [facility]) Lisinopril 10 MG Oral Tablet Lisinopril 10 MG 08/26/2020 12:00:00 A M EST 1.0 {tablet} active Lisinopril 10 MG eCW1 ( [facility]) 75 mg 08/26/2020 12:00:00 AM EST tablet 30 TAKE ONE TABLET BY MOUTH EVERY DAY TAKE ONE TABLET BY MOUTH EVERY DAY SOLD: 08/26/2020 [facility] Lisinopril 10 MG Oral Tablet Lisinopril 10 MG 08/26/2020 12:00:00 A M EST 1.0 {tablet} active Lisinopril 10 MG eCW1 ( [facility]) clopidogrel 75 MG Oral Tablet Clopidogrel Bisulfate 75 MG Clopidogrel Bisulfate 75 MG 08/26/2020 12:00:00 AM EST 1.0 {tablet} activ e Clopidogrel Bisulfate 75 MG eCW1 ([facility]) atorvastatin 20 MG Oral Tablet Atorvastatin Calcium 20 MG Atorvastatin Calcium 20 MG 08/26/2020 12:00:00 AM EST 1.0 {tablet} activ e Atorvastatin Calcium 20 MG eCW1 ([facility]) clopidogrel 75 MG Oral Tablet Clopidogrel Bisulfate 75 MG Clopidogrel Bisulfate 75 MG 08/26/2020 12:00:00 AM EST 1.0 {tablet} activ e Clopidogrel Bisulfate 75 MG eCW1 ([facility]) Lisinopril 10 MG Oral Tablet Lisinopril 10 MG 08/26/2020 12:00:00 A M EST 1.0 {tablet} active Lisinopril 10 MG eCW1 ( [facility]) atorvastatin 20 MG Oral Tablet Atorvastatin Calcium 20 MG Atorvastatin Calcium 20 MG 08/26/2020 12:00:00 AM EST 1.0 {tablet} activ e Atorvastatin Calcium 20 MG eCW1 ([facility]) Lisinopril 10 MG Oral Tablet Lisinopril 10 MG 08/26/2020 12:00:00 A M EST 1.0 {tablet} active Lisinopril 10 MG eCW1 ( [facility]) Aspirin 81 MG Delayed Release Oral Tablet Aspirin EC 81 MG A spirin EC 81 MG 08/26/2020 12:00:00 AM EST 1.0 {tablet} active Aspirin EC 81 MG eCW1 ([facility]) Lisinopril 10 MG Oral Tablet Lisinopril 10 MG 08/26/2020 12:00:00 A M EST 1.0 {tablet} active Lisinopril 10 MG eCW1 ( [facility]) 10 mg 08/26/2020 12:00:00 AM EST tablet 30 TAKE ONE TABLET BY MOUTH EVERY DAY TAKE ONE TABLET BY MOUTH EVERY DAY SOLD: 08/26/2020 [facility] atorvastatin 20 MG Oral Tablet Atorvastatin Calcium 20 MG Atorvastatin Calcium 20 MG 08/26/2020 12:00:00 AM EST 1.0 {tablet} activ e Atorvastatin Calcium 20 MG eCW1 ([facility]) atorvastatin 20 MG Oral Tablet Atorvastatin Calcium 20 MG Atorvastatin Calcium 20 MG 08/26/2020 12:00:00 AM EST 1.0 {tablet} activ e Atorvastatin Calcium 20 MG eCW1 ([facility]) Aspirin 81 MG Delayed Release Oral Tablet Aspirin EC 81 MG A spirin EC 81 MG 08/26/2020 12:00:00 AM EST 1.0 {tablet} active Aspirin EC 81 MG eCW1 ([facility]) Aspirin 81 MG Delayed Release Oral Tablet Aspirin EC 81 MG A spirin EC 81 MG 08/26/2020 12:00:00 AM EST 1.0 {tablet} active Aspirin EC 81 MG eCW1 ([facility]) Lisinopril 10 MG Oral Tablet Lisinopril 10 MG 08/26/2020 12:00:00 A M EST 1.0 {tablet} active Lisinopril 10 MG eCW1 ( [facility]) Aspirin 81 MG Delayed Release Oral Tablet Aspirin EC 81 MG A spirin EC 81 MG 08/26/2020 12:00:00 AM EST 1.0 {tablet} active Aspirin EC 81 MG eCW1 ([facility]) Aspirin 81 MG Delayed Release Oral Tablet Aspirin EC 81 MG A spirin EC 81 MG 08/26/2020 12:00:00 AM EST 1.0 {tablet} active Aspirin EC 81 MG eCW1 ([facility]) clopidogrel 75 MG Oral Tablet Clopidogrel Bisulfate 75 MG Clopidogrel Bisulfate 75 MG 08/26/2020 12:00:00 AM EST 1.0 {tablet} activ e Clopidogrel Bisulfate 75 MG eCW1 ([facility]) Lisinopril 10 MG Oral Tablet Lisinopril 10 MG 08/26/2020 12:00:00 A M EST 1.0 {tablet} active Lisinopril 10 MG eCW1 ( [facility]) atorvastatin 20 MG Oral Tablet Atorvastatin Calcium 20 MG Atorvastatin Calcium 20 MG 08/26/2020 12:00:00 AM EST 1.0 {tablet} activ e Atorvastatin Calcium 20 MG eCW1 ([facility]) clopidogrel 75 MG Oral Tablet Clopidogrel Bisulfate 75 MG Clopidogrel Bisulfate 75 MG 08/26/2020 12:00:00 AM EST 1.0 {tablet} activ e Clopidogrel Bisulfate 75 MG eCW1 ([facility]) atorvastatin 20 MG Oral Tablet Atorvastatin Calcium 20 MG Atorvastatin Calcium 20 MG 08/26/2020 12:00:00 AM EST 1.0 {tablet} activ e Atorvastatin Calcium 20 MG eCW1 ([facility]) atorvastatin 20 MG Oral Tablet Atorvastatin Calcium 20 MG Atorvastatin Calcium 20 MG 08/26/2020 12:00:00 AM EST 1.0 {tablet} activ e Atorvastatin Calcium 20 MG eCW1 ([facility]) Aspirin 81 MG Delayed Release Oral Tablet Aspirin EC 81 MG A spirin EC 81 MG 08/26/2020 12:00:00 AM EST 1.0 {tablet} active Aspirin EC 81 MG eCW1 ([facility]) atorvastatin 20 MG Oral Tablet Atorvastatin Calcium 20 MG Atorvastatin Calcium 20 MG 08/26/2020 12:00:00 AM EST 1.0 {tablet} activ e Atorvastatin Calcium 20 MG eCW1 ([facility]) clopidogrel 75 MG Oral Tablet Clopidogrel Bisulfate 75 MG Clopidogrel Bisulfate 75 MG 08/26/2020 12:00:00 AM EST 1.0 {tablet} activ e Clopidogrel Bisulfate 75 MG eCW1 ([facility]) atorvastatin 20 MG Oral Tablet Atorvastatin Calcium 20 MG Atorvastatin Calcium 20 MG 08/26/2020 12:00:00 AM EST 1.0 {tablet} activ e Atorvastatin Calcium 20 MG eCW1 ([facility]) Aspirin 81 MG Delayed Release Oral Tablet Aspirin EC 81 MG A spirin EC 81 MG 08/26/2020 12:00:00 AM EST 1.0 {tablet} active Aspirin EC 81 MG eCW1 ([facility]) Lisinopril 10 MG Oral Tablet Lisinopril 10 MG 08/26/2020 12:00:00 A M EST 1.0 {tablet} active Lisinopril 10 MG eCW1 ( [facility]) Lisinopril 10 MG Oral Tablet Lisinopril 10 MG 08/26/2020 12:00:00 A M EST 1.0 {tablet} active Lisinopril 10 MG eCW1 ( [facility]) Lisinopril 10 MG Oral Tablet Lisinopril 10 MG 08/26/2020 12:00:00 A M EST 1.0 {tablet} active Lisinopril 10 MG eCW1 ( [facility]) clopidogrel 75 MG Oral Tablet Clopidogrel Bisulfate 75 MG Clopidogrel Bisulfate 75 MG 08/26/2020 12:00:00 AM EST 1.0 {tablet} activ e Clopidogrel Bisulfate 75 MG eCW1 ([facility]) clopidogrel 75 MG Oral Tablet Clopidogrel Bisulfate 75 MG Clopidogrel Bisulfate 75 MG 08/26/2020 12:00:00 AM EST 1.0 {tablet} activ e Clopidogrel Bisulfate 75 MG eCW1 ([facility]) Aspirin 81 MG Delayed Release Oral Tablet Aspirin EC 81 MG A spirin EC 81 MG 08/26/2020 12:00:00 AM EST 1.0 {tablet} active Aspirin EC 81 MG eCW1 ([facility]) Lisinopril 10 MG Oral Tablet Lisinopril 10 MG 08/26/2020 12:00:00 A M EST 1.0 {tablet} active Lisinopril 10 MG eCW1 ( [facility]) clopidogrel 75 MG Oral Tablet Clopidogrel Bisulfate 75 MG Clopidogrel Bisulfate 75 MG 08/26/2020 12:00:00 AM EST 1.0 {tablet} activ e Clopidogrel Bisulfate 75 MG eCW1 ([facility]) 81 mg 08/26/2020 12:00:00 AM EST tablet,delayed release (DR/EC) 30 TAKE ONE TABLET BY MOUTH EVERY DAY TAKE ONE TABLET BY MOUTH EVERY DAY SOLD: 08/26/2020 [facility] Lisinopril 10 MG Oral Tablet Lisinopril 10 MG 08/26/2020 12:00:00 A M EST 1.0 {tablet} active Lisinopril 10 MG eCW1 ( [facility]) clopidogrel 75 MG Oral Tablet Clopidogrel Bisulfate 75 MG Clopidogrel Bisulfate 75 MG 08/26/2020 12:00:00 AM EST 1.0 {tablet} activ e Clopidogrel Bisulfate 75 MG eCW1 ([facility]) Lisinopril 10 MG Oral Tablet Lisinopril 10 MG 08/26/2020 12:00:00 A M EST 1.0 {tablet} active Lisinopril 10 MG eCW1 ( [facility]) clopidogrel 75 MG Oral Tablet Clopidogrel Bisulfate 75 MG Clopidogrel Bisulfate 75 MG 08/26/2020 12:00:00 AM EST 1.0 {tablet} activ e Clopidogrel Bisulfate 75 MG eCW1 (Formerly [facility]) atorvastatin 20 MG Oral Tablet Atorvastatin Calcium 20 MG Atorvastatin Calcium 20 MG 08/26/2020 12:00:00 AM EST 1.0 {tablet} activ e Atorvastatin Calcium 20 MG eCW1 (Formerly [facility]) Lisinopril 10 MG Oral Tablet Lisinopril 10 MG 08/26/2020 12:00:00 A M EST 1.0 {tablet} active Lisinopril 10 MG eCW1 ( Formerly [facility]) Aspirin 81 MG Delayed Release Oral Tablet Aspirin EC 81 MG A spirin EC 81 MG 08/26/2020 12:00:00 AM EST 1.0 {tablet} active Aspirin EC 81 MG eCW1 (Formerly [facility]) Aspirin 81 MG Delayed Release Oral Tablet Aspirin EC 81 MG A spirin EC 81 MG 08/26/2020 12:00:00 AM EST 1.0 {tablet} active Aspirin EC 81 MG eCW1 (Formerly [facility]) clopidogrel 75 MG Oral Tablet Clopidogrel Bisulfate 75 MG Clopidogrel Bisulfate 75 MG 08/26/2020 12:00:00 AM EST 1.0 {tablet} activ e Clopidogrel Bisulfate 75 MG eCW1 (Formerly [facility]) Aspirin 81 MG Delayed Release Oral Tablet Aspirin EC 81 MG A spirin EC 81 MG 08/26/2020 12:00:00 AM EST 1.0 {tablet} active Aspirin EC 81 MG eCW1 (Formerly [facility]) Aspirin 81 MG Delayed Release Oral Tablet Aspirin EC 81 MG A spirin EC 81 MG 08/26/2020 12:00:00 AM EST 1.0 {tablet} active Aspirin EC 81 MG eCW1 (Formerly [facility]) Estradiol 0.1 MG/ML Vaginal Cream Estradiol 0.1 MG/GM Estrad iol 0.1 MG/GM 08/04/2020 12:00:00 AM EST active Estradiol 0.1 MG/GM eCW1 (Formerly [facility]) Estradiol 0.1 MG/ML Vaginal Cream Estradiol 0.1 MG/GM Estrad iol 0.1 MG/GM 08/04/2020 12:00:00 AM EST active Estradiol 0.1 MG/GM eCW1 (Formerly [facility]) Estradiol 0.1 MG/ML Vaginal Cream Estradiol 0.1 MG/GM Estrad iol 0.1 MG/GM 08/04/2020 12:00:00 AM EST active Estradiol 0.1 MG/GM eCW1 (Formerly [facility]) Estradiol 0.1 MG/ML Vaginal Cream Estradiol 0.1 MG/GM Estrad iol 0.1 MG/GM 08/04/2020 12:00:00 AM EST active Estradiol 0.1 MG/GM eCW1 (Formerly [facility]) Estradiol 0.1 MG/ML Vaginal Cream Estradiol 0.1 MG/GM Estrad iol 0.1 MG/GM 08/04/2020 12:00:00 AM EST active Estradiol 0.1 MG/GM eCW1 (Formerly [facility]) Estradiol 0.1 MG/ML Vaginal Cream Estradiol 0.1 MG/GM Estrad iol 0.1 MG/GM 08/04/2020 12:00:00 AM EST active Estradiol 0.1 MG/GM eCW1 (Formerly [facility]) Estradiol 0.1 MG/ML Vaginal Cream Estradiol 0.1 MG/GM Estrad iol 0.1 MG/GM 08/04/2020 12:00:00 AM EST active Estradiol 0.1 MG/GM eCW1 (Formerly [facility]) Estradiol 0.1 MG/ML Vaginal Cream Estradiol 0.1 MG/GM Estrad iol 0.1 MG/GM 08/04/2020 12:00:00 AM EST active Estradiol 0.1 MG/GM eCW1 (Formerly [facility]) Estradiol 0.1 MG/ML Vaginal Cream Estradiol 0.1 MG/GM Estrad iol 0.1 MG/GM 08/04/2020 12:00:00 AM EST active Estradiol 0.1 MG/GM eCW1 (Formerly [facility]) Estradiol 0.1 MG/ML Vaginal Cream Estradiol 0.1 MG/GM Estrad iol 0.1 MG/GM 08/04/2020 12:00:00 AM EST active Estradiol 0.1 MG/GM eCW1 (Formerly [facility]) Estradiol 0.1 MG/ML Vaginal Cream Estradiol 0.1 MG/GM Estrad iol 0.1 MG/GM 08/04/2020 12:00:00 AM EST active Estradiol 0.1 MG/GM eCW1 (Formerly [facility]) Estradiol 0.1 MG/ML Vaginal Cream Estradiol 0.1 MG/GM Estrad iol 0.1 MG/GM 08/04/2020 12:00:00 AM EST active Estradiol 0.1 MG/GM eCW1 (Formerly [facility]) Estradiol 0.1 MG/ML Vaginal Cream Estradiol 0.1 MG/GM Estrad iol 0.1 MG/GM 08/04/2020 12:00:00 AM EST active Estradiol 0.1 MG/GM eCW1 (Formerly [facility]) Estradiol 0.1 MG/ML Vaginal Cream Estradiol 0.1 MG/GM Estrad iol 0.1 MG/GM 08/04/2020 12:00:00 AM EST active Estradiol 0.1 MG/GM eCW1 (Formerly [facility]) Estradiol 0.1 MG/ML Vaginal Cream Estradiol 0.1 MG/GM Estrad iol 0.1 MG/GM 08/04/2020 12:00:00 AM EST active Estradiol 0.1 MG/GM eCW1 (Formerly [facility]) Estradiol 0.1 MG/ML Vaginal Cream Estradiol 0.1 MG/GM Estrad iol 0.1 MG/GM 08/04/2020 12:00:00 AM EST active Estradiol 0.1 MG/GM eCW1 (Formerly [facility]) Estradiol 0.1 MG/ML Vaginal Cream Estradiol 0.1 MG/GM Estrad iol 0.1 MG/GM 08/04/2020 12:00:00 AM EST active Estradiol 0.1 MG/GM eCW1 (Formerly [facility]) Estradiol 0.1 MG/ML Vaginal Cream Estradiol 0.1 MG/GM Estrad iol 0.1 MG/GM 08/04/2020 12:00:00 AM EST active Estradiol 0.1 MG/GM eCW1 (Formerly [facility]) Estradiol 0.1 MG/ML Vaginal Cream Estradiol 0.1 MG/GM Estrad iol 0.1 MG/GM 08/04/2020 12:00:00 AM EST active Estradiol 0.1 MG/GM eCW1 (Formerly [facility]) Estradiol 0.1 MG/ML Vaginal Cream Estradiol 0.1 MG/GM Estrad iol 0.1 MG/GM 08/04/2020 12:00:00 AM EST active Estradiol 0.1 MG/GM eCW1 (Formerly [facility]) Estradiol 0.1 MG/ML Vaginal Cream Estradiol 0.1 MG/GM Estrad iol 0.1 MG/GM 08/04/2020 12:00:00 AM EST active Estradiol 0.1 MG/GM eCW1 (Formerly [facility]) 0.05 % 07/30/2020 12:00:00 AM EST ointment 15 APPLY TO AFFECTED AREA(S) TWO TIMES A DAY MAY DECREASE TO DAILY IF SYMPTOMS IMPROVE APPLY TO AFFECTED AREA(S) TWO TIMES A DAY MAY DECREASE TO DAILY IF SYMPTOMS IMPROVE SOLD: 08/01/2020 [facility] Clobetasol Propionate 0.0005 MG/MG Topic al Ointment Clobetasol Propionate 0.05 % Clobetasol Propionate 0.05 % 07/29/2020 12:00:00 AM EST 1.0 {application} active Clobetasol Propionate 0.05 % eCW1 (Formerly [facility]) Clobetasol Propionate 0.0005 MG/MG Topic al Ointment Clobetasol Propionate 0.05 % Clobetasol Propionate 0.05 % 07/29/2020 12:00:00 AM EST 1.0 {application} active Clobetasol Propionate 0.05 % eCW1 (Formerly [facility]) Clobetasol Propionate 0.0005 MG/MG Topic al Ointment Clobetasol Propionate 0.05 % Clobetasol Propionate 0.05 % 07/29/2020 12:00:00 AM EST 1.0 {application} active Clobetasol Propionate 0.05 % eCW1 (Formerly [facility]) Clobetasol Propionate 0.0005 MG/MG Topic al Ointment Clobetasol Propionate 0.05 % Clobetasol Propionate 0.05 % 07/29/2020 12:00:00 AM EST 1.0 {application} active Clobetasol Propionate 0.05 % eCW1 (Formerly [facility]) Clobetasol Propionate 0.0005 MG/MG Topic al Ointment Clobetasol Propionate 0.05 % Clobetasol Propionate 0.05 % 07/29/2020 12:00:00 AM EST 1.0 {application} active Clobetasol Propionate 0.05 % eCW1 (Formerly [facility]) Clobetasol Propionate 0.0005 MG/MG Topic al Ointment Clobetasol Propionate 0.05 % Clobetasol Propionate 0.05 % 07/29/2020 12:00:00 AM EST 1.0 {application} active Clobetasol Propionate 0.05 % eCW1 (Formerly [facility]) Clobetasol Propionate 0.0005 MG/MG Topic al Ointment Clobetasol Propionate 0.05 % Clobetasol Propionate 0.05 % 07/29/2020 12:00:00 AM EST 1.0 {application} active Clobetasol Propionate 0.05 % eCW1 (Formerly [facility]) Clobetasol Propionate 0.0005 MG/MG Topic al Ointment Clobetasol Propionate 0.05 % Clobetasol Propionate 0.05 % 07/29/2020 12:00:00 AM EST 1.0 {application} active Clobetasol Propionate 0.05 % eCW1 (Formerly [facility]) Clobetasol Propionate 0.0005 MG/MG Topic al Ointment Clobetasol Propionate 0.05 % Clobetasol Propionate 0.05 % 07/29/2020 12:00:00 AM EST 1.0 {application} active Clobetasol Propionate 0.05 % eCW1 (Formerly [facility]) Clobetasol Propionate 0.0005 MG/MG Topic al Ointment Clobetasol Propionate 0.05 % Clobetasol Propionate 0.05 % 07/29/2020 12:00:00 AM EST 1.0 {application} active Clobetasol Propionate 0.05 % eCW1 (Formerly [facility]) Clobetasol Propionate 0.0005 MG/MG Topic al Ointment Clobetasol Propionate 0.05 % Clobetasol Propionate 0.05 % 07/29/2020 12:00:00 AM EST 1.0 {application} active Clobetasol Propionate 0.05 % eCW1 (Formerly [facility]) Clobetasol Propionate 0.0005 MG/MG Topic al Ointment Clobetasol Propionate 0.05 % Clobetasol Propionate 0.05 % 07/29/2020 12:00:00 AM EST 1.0 {application} active Clobetasol Propionate 0.05 % eCW1 (Formerly [facility]) Clobetasol Propionate 0.0005 MG/MG Topic al Ointment Clobetasol Propionate 0.05 % Clobetasol Propionate 0.05 % 07/29/2020 12:00:00 AM EST 1.0 {application} active Clobetasol Propionate 0.05 % eCW1 (Formerly [facility]) Clobetasol Propionate 0.0005 MG/MG Topic al Ointment Clobetasol Propionate 0.05 % Clobetasol Propionate 0.05 % 07/29/2020 12:00:00 AM EST 1.0 {application} active Clobetasol Propionate 0.05 % eCW1 (Formerly [facility]) Clobetasol Propionate 0.0005 MG/MG Topic al Ointment Clobetasol Propionate 0.05 % Clobetasol Propionate 0.05 % 07/29/2020 12:00:00 AM EST 1.0 {application} active Clobetasol Propionate 0.05 % eCW1 (Formerly [facility]) Clobetasol Propionate 0.0005 MG/MG Topic al Ointment Clobetasol Propionate 0.05 % Clobetasol Propionate 0.05 % 07/29/2020 12:00:00 AM EST 1.0 {application} active Clobetasol Propionate 0.05 % eCW1 (Formerly [facility]) Clobetasol Propionate 0.0005 MG/MG Topic al Ointment Clobetasol Propionate 0.05 % Clobetasol Propionate 0.05 % 07/29/2020 12:00:00 AM EST 1.0 {application} active Clobetasol Propionate 0.05 % eCW1 (Formerly [facility]) Clobetasol Propionate 0.0005 MG/MG Topic al Ointment Clobetasol Propionate 0.05 % Clobetasol Propionate 0.05 % 07/29/2020 12:00:00 AM EST 1.0 {application} active Clobetasol Propionate 0.05 % eCW1 (Former[facility]) Clobetasol Propionate 0.0005 MG/MG Topic al Ointment Clobetasol Propionate 0.05 % Clobetasol Propionate 0.05 % 07/29/2020 12:00:00 AM EST 1.0 {application} active Clobetasol Propionate 0.05 % eCW1 (Formerly [facility]) Clobetasol Propionate 0.0005 MG/MG Topic al Ointment Clobetasol Propionate 0.05 % Clobetasol Propionate 0.05 % 07/29/2020 12:00:00 AM EST 1.0 {application} active Clobetasol Propionate 0.05 % eCW1 (Formerly [facility]) Clobetasol Propionate 0.0005 MG/MG Topic al Ointment Clobetasol Propionate 0.05 % Clobetasol Propionate 0.05 % 07/29/2020 12:00:00 AM EST 1.0 {application} active Clobetasol Propionate 0.05 % eCW1 (Formerly [facility]) Clobetasol Propionate 0.0005 MG/MG Topic al Ointment Clobetasol Propionate 0.05 % Clobetasol Propionate 0.05 % 07/29/2020 12:00:00 AM EST 1.0 {application} active Clobetasol Propionate 0.05 % eCW1 ([facility]ly [facility]) Clobetasol Propionate 0.0005 MG/MG Topic al Ointment Clobetasol Propionate 0.05 % Clobetasol Propionate 0.05 % 07/29/2020 12:00:00 AM EST 1.0 {application} active Clobetasol Propionate 0.05 % eCW1 ([facility]) Clobetasol Propionate 0.0005 MG/MG Topic al Ointment Clobetasol Propionate 0.05 % Clobetasol Propionate 0.05 % 07/29/2020 12:00:00 AM EST 1.0 {application} active Clobetasol Propionate 0.05 % eCW1 (Formerly [facility]) Estrogens, Conjugated (PRISON) 0.625 MG/ML Vaginal Cream [Premarin] Premarin 0.625 MG/GM Premarin 0.625 MG/GM 07/25/2020 12:00:00 AM EST active Premarin 0.625 MG/GM eCW1 (Formerly [facility]) Estrogens, Conjugated (PRISON) 0.625 MG/ML Vaginal Cream [Premarin] Premarin 0.625 MG/GM Premarin 0.625 MG/GM 07/25/2020 12:00:00 AM EST active Premarin 0.625 MG/GM eCW1 (Formerly [facility]) Estrogens, Conjugated (PRISON) 0.625 MG/ML Vaginal Cream [Premarin] Premarin 0.625 MG/GM Premarin 0.625 MG/GM 07/25/2020 12:00:00 AM EST active Premarin 0.625 MG/GM eCW1 ([facility]ly [facility]) Estrogens, Conjugated (PRISON) 0.625 MG/ML Vaginal Cream [Premarin] Premarin 0.625 MG/GM Premarin 0.625 MG/GM 07/25/2020 12:00:00 AM EST active Premarin 0.625 MG/GM eCW1 (Formerly [facility]) Estrogens, Conjugated (PRISON) 0.625 MG/ML Vaginal Cream [Premarin] Premarin 0.625 MG/GM Premarin 0.625 MG/GM 07/25/2020 12:00:00 AM EST active Premarin 0.625 MG/GM eCW1 (Formerly [facility]) Estrogens, Conjugated (PRISON) 0.625 MG/ML Vaginal Cream [Premarin] Premarin 0.625 MG/GM Premarin 0.625 MG/GM 07/25/2020 12:00:00 AM EST active Premarin 0.625 MG/GM eCW1 (Formerly [facility]) Estrogens, Conjugated (PRISON) 0.625 MG/ML Vaginal Cream [Premarin] Premarin 0.625 MG/GM Premarin 0.625 MG/GM 07/25/2020 12:00:00 AM EST active Premarin 0.625 MG/GM eCW1 (Formerly [facility]) Estrogens, Conjugated (PRISON) 0.625 MG/ML Vaginal Cream [Premarin] Premarin 0.625 MG/GM Premarin 0.625 MG/GM 07/25/2020 12:00:00 AM EST active Premarin 0.625 MG/GM eCW1 (Formerly [facility]) Estrogens, Conjugated (PRISON) 0.625 MG/ML Vaginal Cream [Premarin] Premarin 0.625 MG/GM Premarin 0.625 MG/GM 07/25/2020 12:00:00 AM EST active Premarin 0.625 MG/GM eCW1 (Formerly [facility]) Estrogens, Conjugated (PRISON) 0.625 MG/ML Vaginal Cream [Premarin] Premarin 0.625 MG/GM Premarin 0.625 MG/GM 07/25/2020 12:00:00 AM EST active Premarin 0.625 MG/GM eCW1 (Formerly [facility]) Estrogens, Conjugated (PRISON) 0.625 MG/ML Vaginal Cream [Premarin] Premarin 0.625 MG/GM Premarin 0.625 MG/GM 07/25/2020 12:00:00 AM EST active Premarin 0.625 MG/GM eCW1 (Formerly [facility]) Estrogens, Conjugated (PRISON) 0.625 MG/ML Vaginal Cream [Premarin] Premarin 0.625 MG/GM Premarin 0.625 MG/GM 07/25/2020 12:00:00 AM EST active Premarin 0.625 MG/GM eCW1 (Formerly [facility]) Estrogens, Conjugated (PRISON) 0.625 MG/ML Vaginal Cream [Premarin] Premarin 0.625 MG/GM Premarin 0.625 MG/GM 07/25/2020 12:00:00 AM EST active Premarin 0.625 MG/GM eCW1 (Former[facility]) Estrogens, Conjugated (PRISON) 0.625 MG/ML Vaginal Cream [Premarin] Premarin 0.625 MG/GM Premarin 0.625 MG/GM 07/25/2020 12:00:00 AM EST active Premarin 0.625 MG/GM eCW1 (Formerly [facility]) Estrogens, Conjugated (PRISON) 0.625 MG/ML Vaginal Cream [Premarin] Premarin 0.625 MG/GM Premarin 0.625 MG/GM 07/25/2020 12:00:00 AM EST active Premarin 0.625 MG/GM eCW1 ([facility]) Estrogens, Conjugated (PRISON) 0.625 MG/ML Vaginal Cream [Premarin] Premarin 0.625 MG/GM Premarin 0.625 MG/GM 07/25/2020 12:00:00 AM EST active Premarin 0.625 MG/GM eCW1 ([facility]ly [facility]) Estrogens, Conjugated (PRISON) 0.625 MG/ML Vaginal Cream [Premarin] Premarin 0.625 MG/GM Premarin 0.625 MG/GM 07/25/2020 12:00:00 AM EST active Premarin 0.625 MG/GM eCW1 (Formerly [facility]) Estrogens, Conjugated (PRISON) 0.625 MG/ML Vaginal Cream [Premarin] Premarin 0.625 MG/GM Premarin 0.625 MG/GM 07/25/2020 12:00:00 AM EST active Premarin 0.625 MG/GM eCW1 ([facility]ly [facility]) Estrogens, Conjugated (PRISON) 0.625 MG/ML Vaginal Cream [Premarin] Premarin 0.625 MG/GM Premarin 0.625 MG/GM 07/25/2020 12:00:00 AM EST active Premarin 0.625 MG/GM eCW1 ([facility]) Estrogens, Conjugated (PRISON) 0.625 MG/ML Vaginal Cream [Premarin] Premarin 0.625 MG/GM Premarin 0.625 MG/GM 07/25/2020 12:00:00 AM EST active Premarin 0.625 MG/GM eCW1 ([facility]ly [facility]) Estrogens, Conjugated (PRISON) 0.625 MG/ML Vaginal Cream [Premarin] Premarin 0.625 MG/GM Premarin 0.625 MG/GM 07/25/2020 12:00:00 AM EST active Premarin 0.625 MG/GM eCW1 ([facility]) Estrogens, Conjugated (PRISON) 0.625 MG/ML Vaginal Cream [Premarin] Premarin 0.625 MG/GM Premarin 0.625 MG/GM 07/25/2020 12:00:00 AM EST active Premarin 0.625 MG/GM eCW1 ([facility]ly [facility]) Estrogens, Conjugated (PRISON) 0.625 MG/ML Vaginal Cream [Premarin] Premarin 0.625 MG/GM Premarin 0.625 MG/GM 07/25/2020 12:00:00 AM EST active Premarin 0.625 MG/GM eCW1 ([facility]) Estrogens, Conjugated (PRISON) 0.625 MG/ML Vaginal Cream [Premarin] Premarin 0.625 MG/GM Premarin 0.625 MG/GM 07/25/2020 12:00:00 AM EST active Premarin 0.625 MG/GM eCW1 ([facility]ly [facility]) 75 mcg 06/27/2020 12:00:00 AM EST tablet 90 TAKE ONE TABLET BY MOUTH EVERY DAY DIRECTED TAKE ONE TABLET BY MOUTH EVERY DAY DIRECTED SOLD: 020 [facility] Rosuvastatin calcium 40 MG Oral Tablet [Crestor] Crestor 40 MG Crestor 40 MG 06/03/2020 12:00:00 AM EDT 1.0 {tablet} suspended Crestor 40 MG eCW1 ([facility]ly [facility]) Rosuvastatin calcium 40 MG Oral Tablet [Crestor] Crestor 40 MG Crestor 40 MG 06/03/2020 12:00:00 AM EDT 1.0 {tablet} suspended Crestor 40 MG eCW1 ([facility]) Rosuvastatin calcium 40 MG Oral Tablet [Crestor] Crestor 40 MG Crestor 40 MG 06/03/2020 12:00:00 AM EDT 1.0 {tablet} active Crestor 40 MG eCW1 ([facility]) Rosuvastatin calcium 40 MG Oral Tablet [Crestor] Crestor 40 MG Crestor 40 MG 06/03/2020 12:00:00 AM EDT 1.0 {tablet} suspended Crestor 40 MG eCW1 ([facility]ly [facility]) Rosuvastatin calcium 40 MG Oral Tablet [Crestor] Crestor 40 MG Crestor 40 MG 06/03/2020 12:00:00 AM EDT 1.0 {tablet} active Crestor 40 MG eCW1 ([facility]ly [facility]) Rosuvastatin calcium 40 MG Oral Tablet [Crestor] Crestor 40 MG Crestor 40 MG 06/03/2020 12:00:00 AM EDT 1.0 {tablet} active Crestor 40 MG eCW1 ([facility]) Rosuvastatin calcium 40 MG Oral Tablet [Crestor] Crestor 40 MG Crestor 40 MG 06/03/2020 12:00:00 AM EDT 1.0 {tablet} active Crestor 40 MG eCW1 ([facility]) Rosuvastatin calcium 40 MG Oral Tablet [Crestor] Crestor 40 MG Crestor 40 MG 06/03/2020 12:00:00 AM EDT 1.0 {tablet} suspended Crestor 40 MG eCW1 ([facility]ly [facility]) Rosuvastatin calcium 40 MG Oral Tablet [Crestor] Crestor 40 MG Crestor 40 MG 06/03/2020 12:00:00 AM EDT 1.0 {tablet} active Crestor 40 MG eCW1 (Formerly [facility]) Rosuvastatin calcium 40 MG Oral Tablet [Crestor] Crestor 40 MG Crestor 40 MG 06/03/2020 12:00:00 AM EDT 1.0 {tablet} suspended Crestor 40 MG eCW1 (Formerly [facility]) Insurance Providers Payer name Policy type / Coverage type Policy ID Covered green party ID Covered green party's relationship to lo Policy Lo Plan Information MEDICARE [id number] SP [id number] A [id number] A MEDICARE C [id number] S [id number] H00 AETNA MEDICARE O [id number] S [id number] MEDICARE [id number] SP [id number] H00 AETNA MEDICARE [id number] SP [id number] MEDICARE [id number] SP [id number] AETNA MEDICARE [id number] SP [id number] MEDICARE COMPLETE [id number] SP ME [id number] MEDICARE COMPLETE [id number] SP [id number] MEDICARE COMPLETE [id number] SP [id number] ANSI-Medicare Part B [id number] ANSI-Medicare Part B [id number] MEDICARE UNK SP UNK ANSI-Medicare Part B [id number] ANSI-Medicare Part B [id number] ANSI-Medicare Part B [id number] ANSI-Medicare Part B [id number] ANSI-Medicare Part B [id number] ANSI-Medicare Part B [id number] ANSI-Medicare Part B [id number] ANSI-Medicare Part B [id number] ANSI-Medicare Part B [id number] ANSI-Medicare Part B [id number] ANSI-Medicare Part B [id number] ANSI-Medicare Part B [id number] ANSI-Medicare Part B [id number] ANSI-Medicare Part B [id number] ANSI-Medicare Part B [id number] ANSI-Medicare Part B [id number] ANSI-Medicare Part B [id number] ANSI-Medicare Part B [id number] MEDICARE COMPLETE [id number] [facility] [place] [id number] S [id number] [employer] O [id number] S [id number] AETNA MEDICARE [id number] SP MEBTW [id number] MEDICARE [id number] SP [id number] A MEDICARE C [id number] S [id number] A P UNAVAILABLE U[place]ILA [place] [id number] [place] [id number] MEDICARE [id number] SP [id number] H00 Problems, Conditions, and Diagnoses Code Display Name Description Problem Type Effective Dates Data Source(s) R26.81 [id number] Unsteady gait Problem 11/25/2020 12:00:00 AM EDT eCW1 (Formerly [facility]) Z91.19 [id number] Medical non-compliance Problem 10/10/2020 12 :00:00 AM EST eCW1 (Formerly [facility]) Z86.73 [id number] History of stroke Problem 10/10/2020 12:00:0 0 AM EST eCW1 ([facility]ly [facility]) R26.89 [id number] Imbalance Problem 10/04/2020 12:00:00 AM ES T eCW1 (Formerly [facility]) N90.4 [id number] Lichen sclerosus of female genitalia Prob liv 07/31/2020 12:00:00 AM EST eCW1 ([facility]ly [facility]) R45.89 [id number] Need for emotional support Problem 0 12:00:00 AM EST eCW1 ([facility]) F03.90 [id number] Dementia without beh avioral disturbance, unspecified dementia type Problem 07/25/2020 12:00:00 AM EST eCW1 ([facility]) N95.2 [id number] Vaginal atrophy Problem 07/25/2020 12:00:00 AM EST eCW1 (Formerly [facility]) Z53.20 [id number] 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 [place] 06/11/2020 12:00:00 AM EDT eCW1 (Formerly [facility]) Z91.89 [id number] Driving safety issue Problem 06/11/2020 12:0 0:00 AM EDT eCW1 (Formerly [facility]) Z53.20 [id number] Patient refused evaluation or treatment Minh jeter 06/11/2020 12:00:00 AM EDT eCW1 (Formerly [facility]) R47.89 [id number] Word finding difficulty Problem 06/11/2020 1 2:00:00 AM EDT eCW1 (Formerly [facility]) G45.9 [id number] TIA (transient ischemic attack) Problem 06/03/2020 12:00:00 AM EDT eCW1 (Formerly [facility]) Surgeries/Procedures No Information Results ID Date Data Source [id number] 08/24/2020 06:42:00 PM EST [facility] Name Value Range Interpretation Code Description Data Dea rce(s) Supporting Document(s) SARS-CoV-2 (COVID 19) NEGATIVE - SARS-CoV-2 (COVID19) [facility] This lab was ordered by [facility] a nd reported by [facility]. Procedure Social History Code Duration Value Status Description Data Source(s ) Smoking 01/20/2021 12:00:00 AM EDT Never Smoker completed Never S moker eCW1 (Formerly [facility]) Smoking 01/20/2021 12:00:00 AM EDT Never Smoker completed Never S moker eCW1 (Formerly [facility]) Smoking 01/20/2021 12:00:00 AM EDT Never Smoker completed Never S moker eCW1 (Formerly [facility]) Smoking 11/25/2020 12:00:00 AM EDT Never Smoker completed Never S moker eCW1 (Formerly [facility]) Smoking 11/25/2020 12:00:00 AM EDT Never Smoker completed Never S moker eCW1 (Formerly [facility]) Smoking 11/25/2020 12:00:00 AM EDT Never Smoker completed Never S moker eCW1 (Formerly [facility]) Smoking 11/25/2020 12:00:00 AM EDT Never Smoker completed Never S moker eCW1 ([facility]ly [facility]) Smoking 11/25/2020 12:00:00 AM EDT Never Smoker completed Never S moker eCW1 ([facility]ly [facility]) Smoking 11/25/2020 12:00:00 AM EDT Never Smoker completed Never S moker eCW1 (Formerly [facility]) Smoking 10/25/2020 12:00:00 AM EDT Never Smoker completed Never S moker eCW1 ([facility]ly [facility]) Smoking 10/25/2020 12:00:00 AM EDT Never Smoker completed Never S moker eCW1 ([facility]ly [facility]) Smoking 10/25/2020 12:00:00 AM EDT Never Smoker completed Never S moker eCW1 ([facility]ly [facility]) Smoking 10/16/2020 12:00:00 AM EST Never Smoker completed Never S moker eCW1 ([facility]ly [facility]) Smoking 10/16/2020 12:00:00 AM EST Never Smoker completed Never S moker eCW1 ([facility]ly [facility]) Smoking 10/04/2020 12:00:00 AM EST Never Smoker completed Never S moker eCW1 ([facility]ly [facility]) Smoking 10/04/2020 12:00:00 AM EST Never Smoker completed Never S moker eCW1 (Formerly [facility]) Smoking 09/08/2020 12:00:00 AM EST Never Smoker completed Never S moker eCW1 ([facility]ly [facility]) Smoking 07/25/2020 12:00:00 AM EST Never Smoker completed Never S moker eCW1 (Formerly [facility]) Smoking 07/25/2020 12:00:00 AM EST Never Smoker completed Never S moker eCW1 ([facility]ly [facility]) Smoking 07/25/2020 12:00:00 AM EST Never Smoker completed Never S moker eCW1 ([facility] [facility] Sm[facility] 07/25/2020 12:00:00 AM EST Never Smoker completed Never S moker eCW1 (Formerly [facility]) Smoking 07/25/2020 12:00:00 AM EST Never Smoker completed Never S moker eCW1 (Formerly [facility]) Smoking 07/25/2020 12:00:00 AM EST Never Smoker completed Never S moker eCW1 (Formerly [facility]) Smoking 07/25/2020 12:00:00 AM EST Never Smoker completed Never S moker eCW1 (Formerly [facility]) Smoking 06/14/2020 12:00:00 AM EST Never Smoker completed Never S moker eCW1 (Formerly [facility]) Smoking 06/14/2020 12:00:00 AM EST Never Smoker completed Never S moker eCW1 (Formerly [facility]) Smoking 06/14/2020 12:00:00 AM EST Never Smoker completed Never S moker eCW1 (Formerly [facility]) Smoking 06/14/2020 12:00:00 AM EST Never Smoker completed Never S moker eCW1 (Formerly [facility]) Smoking 06/14/2020 12:00:00 AM EST Never Smoker completed Never S moker eCW1 (Formerly [facility]) Vital Signs ID Date Data Source UNK Name Value Range Interpretation Code Description Data Source(s) Body weight 148.8 [lb_av] 148.8 [lb_av] eCW1 (Formerly [facility]) Body height 65 [in_i] 65 [in_i] eCW1 ([facility]) Body mass index (BMI) [Ratio] 24.76 kg/m2 24.76 kg/m2 eCW1 (Formerly [facility]) Heart rate 96 /min 96 /min eCW1 (Formerly [facility]) Respiratory rate 18 /min 18 /min eCW1 ([facility]) Body temperature 97.1 [degF] 97.1 [degF] eCW1 ( Formerly [facility]) Systolic blood pressure 124 mm[Hg] 124 mm[Hg] e CW1 (Formerly [facility]) Diastolic blood pressure 76 mm[Hg] 76 mm[Hg] eCW1 (Formerly [facility]) Body weight 152.0 [lb_av] 152.0 [lb_av] eCW1 (Formerly [facility]) Body height 65 [in_i] 65 [in_i] eCW1 ([facility]) Body mass index (BMI) [Ratio] 25.29 kg/m2 25.29 kg/m2 eCW1 (Formerly [facility]) Heart rate 83 /min 83 /min eCW1 (Formerly [facility]) Respiratory rate 18 /min 18 /min eCW1 ([facility]) Body temperature 97.6 [degF] 97.6 [degF] eCW1 ( Formerly [facility]) Systolic blood pressure 122 mm[Hg] 122 mm[Hg] e CW1 (Formerly [facility]) Diastolic blood pressure 82 mm[Hg] 82 mm[Hg] eCW1 ([facility]ly [facility]) Body weight 154 [lb_av] 154 [lb_av] eCW1 ([facility]) Body height 65 [in_i] 65 [in_i] eCW1 ([facility]) Body mass index (BMI) [Ratio] 25.62 kg/m2 25.62 kg/m2 eCW1 (Formerly [facility]) Heart rate 75 /min 75 /min eCW1 (Formerly [facility]) Respiratory rate 18 /min 18 /min eCW1 ([facility]) Body temperature 98.6 [degF] 98.6 [degF] eCW1 ( [facility]) Systolic blood pressure 124 mm[Hg] 124 mm[Hg] e CW1 (Formerly [facility]) Diastolic blood pressure 78 mm[Hg] 78 mm[Hg] eCW1 (Formerly [facility]) Body weight 156.2 [lb_av] 156.2 [lb_av] eCW1 (Formerly [facility]) Body height 65 [in_i] 65 [in_i] eCW1 ([facility]) Body mass index (BMI) [Ratio] 25.99 kg/m2 25.99 kg/m2 eCW1 (Formerly [facility]) Heart rate 80 /min 80 /min eCW1 (Formerly [facility]) Respiratory rate 18 /min 18 /min eCW1 ([facility]) Body temperature 98.0 [degF] 98.0 [degF] eCW1 ( Formerly [facility]) Systolic blood pressure 146 mm[Hg] 146 mm[Hg] e CW1 (Formerly [facility]) Diastolic blood pressure 82 mm[Hg] 82 mm[Hg] eCW1 (Formerly [facility]) Patient Treatment Plan of Care Planned Activity Planned Date Details Description Data Source (s) December - 12/26/2020 12:00:00 AM EDT e CW1 (Formerly [facility]) May Have - 12/26/2020 12:00:00 AM EDT e CW1 (Formerly [facility]) May Have - 12/26/2020 12:00:00 AM EDT e CW1 (Formerly [facility]) May Have - 12/26/2020 12:00:00 AM EDT e CW1 (Formerly [facility]) meloxicam 7.5 MG Oral Tablet 11/25/2020 12:00:00 AM EDT eCW1 (Formerly [facility]) Scooter Chair 11/25/2020 12:00:00 AM EDT eCW1 (Formerly [facility]) meloxicam 7.5 MG Oral Tablet 11/25/2020 12:00:00 AM EDT eCW1 (Formerly [facility]) Scooter Chair 11/25/2020 12:00:00 AM EDT eCW1 (Formerly [facility]) meloxicam 7.5 MG Oral Tablet 11/25/2020 12:00:00 AM EDT eCW1 (Formerly [facility]) Scooter Chair 11/25/2020 12:00:00 AM EDT eCW1 (Formerly [facility]) meloxicam 7.5 MG Oral Tablet 11/25/2020 12:00:00 AM EDT eCW1 (Formerly [facility]) Scooter Chair 11/25/2020 12:00:00 AM EDT eCW1 (Formerly [facility]) Scooter Chair 11/25/2020 12:00:00 AM EDT eCW1 (Formerly [facility]) meloxicam 7.5 MG Oral Tablet 11/25/2020 12:00:00 AM EDT eCW1 ([facility]ly [facility]) Scooter Chair 11/25/2020 12:00:00 AM EDT eCW1 ([facility]ly [facility]) meloxicam 7.5 MG Oral Tablet 11/25/2020 12:00:00 AM EDT eCW1 (Formerly [facility]) atorvastatin 20 MG Oral Tablet 08/26/2020 12:00:00 AM EST eCW1 (Formerly [facility]) clopidogrel 75 MG Oral Tablet 08/26/2020 12:00:00 AM EST eCW1 (Formerly [facility]) Lisinopril 10 MG Oral Tablet 08/26/2020 12:00:00 AM EST eCW1 (Formerly [facility]) atorvastatin 20 MG Oral Tablet 08/26/2020 12:00:00 AM EST eCW1 (Formerly [facility]) clopidogrel 75 MG Oral Tablet 08/26/2020 12:00:00 AM EST eCW1 (Formerly [facility]) Aspirin 81 MG Delayed Release Oral Tablet 08/26/2020 12:00:00 AM ES T eCW1 (Formerly [facility]) Lisinopril 10 MG Oral Tablet 08/26/2020 12:00:00 AM EST eCW1 (Former[facility]) clopidogrel 75 MG Oral Tablet 08/26/2020 12:00:00 AM EST eCW1 ([facility]) Lisinopril 10 MG Oral Tablet 08/26/2020 12:00:00 AM EST eCW1 (Formerly [facility]) atorvastatin 20 MG Oral Tablet 08/26/2020 12:00:00 AM EST eCW1 (Formerly [facility]) clopidogrel 75 MG Oral Tablet 08/26/2020 12:00:00 AM EST eCW1 ([facility]) Lisinopril 10 MG Oral Tablet 08/26/2020 12:00:00 AM EST eCW1 (Formerly [facility]) atorvastatin 20 MG Oral Tablet 08/26/2020 12:00:00 AM EST eCW1 (Formerly [facility]) clopidogrel 75 MG Oral Tablet 08/26/2020 12:00:00 AM EST eCW1 (Former[facility]) Lisinopril 10 MG Oral Tablet 08/26/2020 12:00:00 AM EST eCW1 (Formerly [facility]) Estradiol 0.1 MG/ML Vaginal Cream 08/04/2020 12:00:00 AM EST eCW1 (Formerly [facility]) Estradiol 0.1 MG/ML Vaginal Cream 08/04/2020 12:00:00 AM EST eCW1 (Formerly [facility]) Clobetasol Propionate 0.0005 MG/MG Topical Ointment 07/29/20 20 12:00:00 AM EST eCW1 ([facility]) Clobetasol Propionate 0.0005 MG/MG Topical Ointment 07/29/20 20 12:00:00 AM EST eCW1 ([facility]) Clobetasol Propionate 0.0005 MG/MG Topical Ointment 07/29/20 20 12:00:00 AM EST eCW1 ([facility]) Clobetasol Propionate 0.0005 MG/MG Topical Ointment 07/29/20 20 12:00:00 AM EST eCW1 ([facility]) Clobetasol Propionate 0.0005 MG/MG Topical Ointment 07/29/20 20 12:00:00 AM EST eCW1 ([facility]) Estrogens, Conjugated (PRISON) 0.625 MG/ML Vaginal Cream [Premarin] 07/25/2020 12:00:00 AM EST eCW1 ([facility]) Estrogens, Conjugated (PRISON) 0.625 MG/ML Vaginal Cream [Premarin] 07/25/2020 12:00:00 AM EST eCW1 ([facility]) Estrogens, Conjugated (PRISON) 0.625 MG/ML Vaginal Cream [Premarin] 07/25/2020 12:00:00 AM EST eCW1 ([facility]) Estrogens, Conjugated (PRISON) 0.625 MG/ML Vaginal Cream [Premarin] 07/25/2020 12:00:00 AM EST eCW1 ([facility]) Estrogens, Conjugated (PRISON) 0.625 MG/ML Vaginal Cream [Premarin] 07/25/2020 12:00:00 AM EST eCW1 ([facility])
[2021-06-21] MEDS ORDERED: diphenhydrAMINE 50MG/ML VIAL (J1200) IV PRN (17:20)
[2021-06-21] MEDS ORDERED: ALBUTEROL 90 MCG/ACT 8GM HFA INHALER INH PRN (17:20)
[2021-06-21] MEDS ORDERED: ALBUTEROL SULFATE 2.5 MG/0.5 ML INH NEB SOLN INH PRN (17:20)
[2021-06-21] MEDS ORDERED: EPINEPHrine INJ 1 MG/ML 1ML AMP IM PRN (17:20)
[2021-06-21] MEDS ORDERED: methylPREDNISolone 125MG 2ML VIAL IV PRN (17:20)
--- NOTE | 2021-06-21 17:27 | HPEPDOC ---
[facility] Medical History & Physical Date of Admission Jun 21, 2021 Date of Service: Jun 21, 2021 History and Physical HISTORY AND PHYSICAL DICTATED JOB # [id number] A/P: 85F w h/o cva x 2, TIA, b/l taker off braker machine stenosis , on asa, plavix, lipitor, htn, dyslipidemia, hypothyroidism,presents w recurrent falls x 2 over the last 2 days w/o prodromal symptoms. found to be positive for covid, consented to monoclonal abs infusion and pt/ot eval. recurrent falls in the setting of b/l taker off braker machine stenosis/cva x 2 -fall precautions, assisted ambulation. echo 08/2020 no valvular dz.EF 75%. -no fx on hip/pelvic xray/ct cspine or ich on ct head. -pt/ot h/o b/l taker off braker machine stenosis /cva x 2 -continue asa, plavix, lipitor htn -controlled on lisinopril hypothyroidism -synthroid dyslipidemia -on lipitor covid positive -asx 100%room air -consented to monoclonal ab infusion disposition: dc in am if cleared by PT/OT. Vital Signs Vital Signs Date Time Temp Pulse Resp B/P (MAP) Pulse Ox O2 Delivery O2 Flow Rate FiO2 06/21/21 16:18 66 99 06/21/21 13:07 131/87 (102) 06/21/21 10:43 97.5 18 Room Air Laboratory Data Labs 24H Laboratory Tests 2 06/21/21 11:22: Immature Granulocyte % (Auto) 0.8, Neutrophils (%) (Auto) 76.1H, Lymphocytes (%) (Auto) 11.5L, Monocytes (%) (Auto) 11.3H, Eosinophils (%) (Auto) 0.0, Basophils (%) (Auto) 0.3, Neutrophils # (Auto) 5.9, Lymphocytes # (Auto) 0.9L, Monocytes # (Auto) 0.9H, Eosinophils # (Auto) 0.0, Basophils # (Auto) 0.0, Nucleated Red Blood Cells % (auto) 0.0, Blood Gas Bicarbonate Standard 22.7, Venous Blood pH 7.377, Venous Blood Partial Pressure CO2 41.9, Venous Blood Partial Pressure O2 29.9L, Venous Blood Total Carbon Dioxide 25.3, Venous Blood HCO3 24.1, Venous Blood Oxygen Saturation 58.9L, Venous Blood Base Excess -1.1, Anion Gap 8, Glomerular Filtration Rate > 60.0, Osmolality 286, Lactic Acid Level 1.0, Calcium Level 9.5, Total Bilirubin 0.6, Direct Bilirubin < 0.1, Aspartate Amino Transf (AST/SGOT) 42H, Alanine Aminotransferase (ALT/SGPT) 22, Alkaline Phosphatase 88, Ammonia < 10, Total Creatine Kinase 647H, Creatine Kinase MB 4.6H, Creatine Kinase MB Relative Index 0.71, Troponin I < 0.02, Total Protein 7.6, Albumin 3.4, Albumin/Globulin Ratio 0.8L, Thyroid Stimulating Hormone (TSH) 1.390 CBC/BMP Laboratory Tests 06/21/21 11:22 Microbiology Microbiology 06/21/21 Respiratory Virus Panel (PCR) ([facility]) - Final, Complete SARS-CoV-2 (COVID 19) Home Medications Scheduled Aspirin (Aspirin EC) 81 Mg Tablet.dr, 81 MG PO DAILY Atorvastatin Calcium (Atorvastatin Calcium) 20 Mg Tablet, 40 MG PO QHS Clopidogrel Bisulfate (Clopidogrel) 75 Mg Tablet, 75 MG PO DAILY Levothyroxine Sodium (Levothyroxine Sodium) 75 Mcg Tablet, 75 MCG PO QAM Lisinopril (Lisinopril) 10 Mg Tablet, 10 MG PO DAILY Allergies Coded Allergies: Penicillins (Verified Allergy, Severe, DIFFICULTY BREATHING, 08/24/20) shellfish derived (Verified Allergy, Severe, HIVES,DIFFICULTY BREATHING, 08/24/20) ciprofloxacin (Verified Adverse Reaction, Intermediate, ATAXIA, 08/24/20) codeine (Verified Adverse Reaction, Unknown, DISORIENTED, 08/24/20) tramadol (Verified Adverse Reaction, Unknown, N/V, 08/24/20) A-FIB/CHADSVASC A-FIB History Current/History of A-Fib/PAF?: No Current PO Anticoag Therapy: No Age/Risk Factor Scoring CHADSVASC: CHADSVASC Response (Comments) Value Age Risk Factor Age >/= 75 years old 2 Gender Risk Factor Female 1 Hx of CHF Yes 1 Hx of HTN Yes 1 Hx of Stroke/TIA/or VTE Yes 2 Hx of Diabetes No 0 Hx of Vascular Disease Yes 1 Total 8 Treatment Treatment ordered: NONE IAM PLASENCIA MD Jun 21, 2021 17:27
--- NOTE | 2021-06-21 19:02 | HPE ---
HISTORY AND PHYSICAL DATE OF ADMISSION: 06/21/2021 REASON FOR ADMISSION/CHIEF COMPLAINT: Recurrent falls. HISTORY OF PRESENT ILLNESS: This is an 85-year-old female with a history of cerebrovascular accident (CVA) in the past with residual left lower extremity and right upper extremity weakness. Previous MRI in August 2020 showed bilateral posterior cerebral artery ((ASSISTANT INVENTORY MANAGER) stenosis, left ASSISTANT INVENTORY MANAGER stenosis or new compared to prior study, stenosis of the M2 segment of the right middle cerebral artery, and severe stenosis of P3 segment. No aneurysm seen. Presents to the emergency room with complaints of a fall and severe hip pain. Patient had two falls yesterday and one today, landing on her right side with complaints of nausea for the past 2 days without vomiting, fever, chills, shortness of breath, chest pain, pressure, tightness, lightheadedness, dyspnea on exertion, loss of taste, loss of smell, change in appetite, diarrhea, constipation, dysuria, urgency, frequency, rash, bilateral upper and lower extremity weakness, palpitations, fever, chills, hemoptysis, dysphagia, odynophagia, bright red blood per rectum, melena, or black tarry stools. In the emergency room x-rays showed no acute fracture or dislocation. Patient was unable to ambulate, and hospitalist was asked to admit the patient due to stability and recurrent falls. Patient had an echocardiogram done in August 2019, which showed ejection fraction of 75%. No significant valvular disease with grade 1 left ventricular diastolic dysfunction. In the emergency room patient was tested for coronavirus and was positive. She has been placed on contact and droplet precautions. PAST MEDICAL HISTORY/PAST SURGICAL HISTORY: 1. Grade 1 left ventricular diastolic dysfunction. 2. Mild tricuspid insufficiency. 3. Bilateral ASSISTANT INVENTORY MANAGER stenosis. 4. Left ASSISTANT INVENTORY MANAGER stenosis. 5. 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 6. Hypothyroidism. 7. Cholecystectomy. 8. Hysterectomy. 9. Cerebrovascular accident (CVA) times two. 10. Appendectomy. 11. Transient ischemic attack (TIA). 12. Tonsillectomy. 13. Hypertension. 14. Dyslipidemia. SOCIAL HISTORY: Denies alcohol, tobacco, recreational drug use. FAMILY HISTORY: Noncontributory due to advanced age. REVIEW OF SYSTEMS: Per history of present illness (HPI). A 12-point system otherwise negative. ALLERGIES: PENICILLIN, CIPRO, CODEINE, shellfish, TRAMADOL. HOME MEDICATIONS: - aspirin 81 daily - Lipitor 40 every night - Plavix 75 daily - Synthroid 75 mcg daily - lisinopril 10 daily PHYSICAL EXAMINATION: VITAL SIGNS: Temperature 97.5, pulse 66, sinus rhythm, respiratory rate 18, blood pressure 131/87, 97%-99% on room air. GENERAL: Patient is awake, alert, oriented to person, place, and time. She is extremely [id number]. Normocephalic, atraumatic. Face is symmetric. No talbot signs. No jugular venous distention (JVD), thyromegaly. Moist mucous membranes. No lymphadenopathy. Face is symmetric. Tongue is midline. No cervical lymphadenopathy or thyromegaly. LUNGS: Clear to auscultation without wheezes, rales, or rhonchi. HEART: S1, S2, sinus rhythm. ABDOMEN: Soft, nontender, nondistended. Positive bowel sounds. EXTREMITIES: No cyanosis, clubbing, or any pitting edema. LABORATORY DATA: Coronavirus positive. White count 7.8, hemoglobin 12, hematocrit 37, platelet count 229. Sodium 137, potassium 4.5, chloride 104, bicarbonate 25, BUN 12, creatinine 0.91, glucose 91, lactic acid 1, calcium 9.5. Total bilirubin 0.6, direct bilirubin less than 0.1, AST 42, ALT 22, alkaline phosphatase 88. Ammonia less than 10. Total CK less 647, MB fraction 4.6. Troponin less than 0.02. Albumin 3.4. TSH 1.39. Respiratory panel: Coronavirus positive. Chest x-ray: No acute cardiopulmonary disease. CT head: Diffuse changes consistent with ischemic demyelination. Remote lacunar infarct. No definite acute change is appreciated. Hip and pelvic x-ray: Degenerative changes of the hip without visible or displaced fracture. Avulsion, AVN, or other acute findings. Cervical spine CT: Cervical spondylosis with posterior osteophyte, disc space narrowing. No prevertebral swelling. No acute findings. ASSESSMENT AND PLAN: An 85-year-old female with a history of cerebrovascular accident (CVA) times two, hypothyroidism, history of ASSISTANT INVENTORY MANAGER stenosis, on chronic aspirin, Plavix, Lipitor, presents with recurrent falls, found to be COVID positive but asymptomatic. IMPRESSION: 1. Recurrent falls. Most likely related to a history of bilateral ASSISTANT INVENTORY MANAGER stenosis. Currently medically treated with aspirin, Plavix, and Lipitor. Physical therapy (PT)/occupational therapy (OT) have been consulted. Continue with conservative management. Patient has no fractures on hip/pelvic x-ray and cervical spine CT. 2. Coronavirus positive. Patient will be kept on droplet/contact precautions. Since she has no symptoms of coronavirus with multiple comorbid conditions, patient is eligible for monoclonal antibody infusion. She has signed consent for this. 3. Hypertension, controlled. Resume on home dose of lisinopril. 4. Hypothyroidism, on Synthroid. 5. History of cerebrovascular accident (CVA), on aspirin, atorvastatin, Plavix. DISPOSITION: Await PT/OT evaluation. [facility]
[2021-06-21 19:31] LABS: C REACTIVE PROTEIN QUANTITATIV 2.09 MG/DL (0.00-0.30); FERRITIN 25 NG/ML (8-252); LDH LACTATE DEHYDROGENASE 429 U/L (84-246)
[2021-06-21 19:32] LABS: ERYTHROCYTE SEDIMENTATION RATE 26 mm/hr (0-30)
--- NOTE | 2021-06-21 20:36 | ECGEPIP ---
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
[2021-06-21] MEDS ORDERED: D3 U5000 PO (20:46)
[2021-06-21] MEDS ORDERED: HOME MED LIST COMPLETE! XX SCH (20:50)
[2021-06-21] MEDS ORDERED: methylPREDNISolone 125MG 2ML VIAL IV ONE (23:30)
[2021-06-21] MEDS ORDERED: diphenhydrAMINE 50MG/ML VIAL (J1200) IV ONE (23:30)
[2021-06-22] VITALS (8 sets, daily range): BP systolic 113–149; BP diastolic 61–86
[2021-06-22 00:02] LABS: INR 0.97; PROTHROMBIN TIME 13.3 SECONDS (12.7-14.5)
[2021-06-22 00:03] LABS: PARTIAL THROMBOPLASTIN TIME 32.8 SECONDS (25.9-37.0)
[2021-06-22 00:05] LABS: D-DIMER QUANT 789.84 ng/ml (<500)
--- OUTSIDE RECORDS SUMMARY | 2021-06-22 00:50 | CCD ---
Author Author [facility] Organization [facility] Address Unknown Phone Unavailable Support Name Relationship Address Phone PAO CHILDERS Next Of Kin [address] [place] [address] UE Next Of Kin Unknown Unavailable RETIRED Next Of Kin Unknown TEJAS PABLO Next Of Kin [id number] [place] [address] JONO PABLO Next Of Kin [address] [place] [address] Re-disclosure Warning The records that you are [...] is protected by Article 27-F of the [facility] Public Health law. If you continue you may have access to information: Regarding HIV / AIDS; Provided by facilities licensed or operated by the [facility] Office of Mental Health; or Provided by the [facility] Office for People With Developmental Disabilities. If such information is present, then the following [facility] mandated warning applies: This information [...] law may result in a fine or mcc sentence or both. A general authorization for the release of medical or other information is NOT sufficient authorization for further disc losure. Encounters Encounter Providers Location Date Indications Data Source(s ) Unknown [address] [facility] [address] [address] 05/03/2021 12:00:00 AM EDT [facility]CW1 [facility] Unknown [address] [facility] [place] [address] 01/25/2021 12:00:00 AM EDT [facility] Unknown [address] [facility] [address] [address] 01/23/2021 12:00:00 AM EDT [facility] [place] [address] [facility] [place] [address] 01/06/2021 12:00:00 AM EDT [facility] [address] [facility] [address] [place] [address] 01/03/2021 12:00:00 AM EDT [facility] [place] [address] [facility] [address] [place] [address] 12/27/2020 12:00:00 AM EDT [facility] Unknown [address] [facility] [place] [address] 12/23/2020 12:00:00 AM EDT [facility]patient [address] [facility] [address] [place] [address] 11/25/2020 12:00:00 AM EDT [facility] Unknown [address] [facility] [address] [address] 11/22/2020 12:00:00 AM EDT [facility] Unknown [address] [facility] [place] [address] 11/17/2020 12:00:00 AM EDT eCW1 ([facility]) Unknown [address] [facility] [place] [address] 11/03/2020 12:00:00 AM EDT eCW1 ([facility]) Unknown [address] [facility] [place] [address] 10/25/2020 12:00:00 AM EDT eCW1 ([facility]) Unknown [address] [facility] [place] [address] 10/16/2020 12:00:00 AM EST eCW1 ([facility]) Unknown [address] [facility] [place] [address] 10/06/2020 12:00:00 AM EST eCW1 ([facility]) Outpatient [address] [facility] [place] [address] 10/04/2020 12:00:00 AM EST eCW1 ([facility]) Unknown [address] [facility] [place] [address] 10/03/2020 12:00:00 AM EST eCW1 ([facility]) Outpatient [address] [facility] [place] [address] 09/09/2020 12:00:00 AM EST eCW1 ([facility]) Unknown [address] [facility] [place] [address] 08/30/2020 12:00:00 AM EST eCW1 ([facility]) Unknown [address] [facility] [place] [address] 08/29/2020 12:00:00 AM EST eCW1 ([facility]) Unknown [address] [facility] [place] [address] 08/04/2020 12:00:00 AM EST eCW1 ([facility]) Unknown [address] [facility] [place] [address] 07/29/2020 12:00:00 AM EST eCW1 ([facility]) Outpatient [address] [facility] [place] [address] 07/25/2020 12:00:00 AM EST eCW1 ([facility]) Unknown [address] [facility] [place] [address] 07/25/2020 12:00:00 AM EST eCW1 ([facility]) Unknown [address] [facility] [place] [address] 07/24/2020 12:00:00 AM EST eCW1 ([facility]) Unknown [address] [facility] [place] [address] 06/29/2020 12:00:00 AM EST eCW1 ([facility]) Unknown [address] [facility] [place] [address] 06/27/2020 12:00:00 AM EST eCW1 ([facility]) Unknown [address] [facility] [place] [address] 06/17/2020 12:00:00 AM EST eCW1 ([facility]) Unknown [address] [facility] [place] [address] 06/14/2020 12:00:00 AM EST eCW1 ([facility]) Unknown [address] [facility] [place] [address] 06/11/2020 12:00:00 AM EDT eCW1 ([facility]) Immunizations Vaccine Date Status Description Data Source(s) COVID-19 VACCINE Moderna 09/30/2020 12:00:00 AM EST completed [facility] Vaccine Series Complete: NOThis Data was Submitted to [facility] Via [employer]. COVID-19 VACCINE, MRNA-[id number], LNP-S (MODERNA)/PF 09/30/2020 1 [...] AM EDT active May Have - eCW1 ([facility]) May Have - UNK 12/26/2020 12:00:00 AM EDT active May Have - eCW1 ([facility]) May Have - UNK 12/26/2020 12:00:00 AM EDT active May Have - eCW1 ([facility]) May Have - UNK 12/26/2020 12:00:00 AM EDT active May Have - eCW1 ([facility]) May Have - UNK 12/26/2020 12:00:00 AM EDT active May Have - eCW1 ([facility]) May Have - UNK 12/26/2020 12:00:00 AM EDT active May Have - eCW1 ([facility]) May Have - UNK 12/26/2020 12:00:00 AM EDT active May Have - eCW1 ([facility]) Scooter Chair UNK 11/25/2020 12:00:00 AM EDT acti ve Scooter Chair eCW1 ([facility]) Scooter Chair UNK 11/25/2020 12:00:00 AM EDT acti ve Scooter Chair eCW1 ([facility]) meloxicam 7.5 MG Oral Tablet Meloxicam 7.5 MG Meloxicam 7.5 MG 11/25/2020 12:00:00 AM EDT 1.0 {tablet} active Me loxicam 7.5 MG eCW1 ([facility]) meloxicam 7.5 MG Oral Tablet Meloxicam 7.5 MG Meloxicam 7.5 MG 11/25/2020 12:00:00 AM EDT 1.0 {tablet} active Me loxicam 7.5 MG eCW1 ([facility]) Scooter Chair UNK 11/25/2020 12:00:00 AM EDT acti ve Scooter Chair eCW1 ([facility]) meloxicam 7.5 MG Oral Tablet Meloxicam 7.5 MG Meloxicam 7.5 MG 11/25/2020 12:00:00 AM EDT 1.0 {tablet} suspended Meloxicam 7.5 MG eCW1 ([facility]) meloxicam 7.5 MG Oral Tablet Meloxicam 7.5 MG Meloxicam 7.5 MG 11/25/2020 12:00:00 AM EDT 1.0 {tablet} active Me loxicam 7.5 MG eCW1 ([facility]) Scooter Chair UNK 11/25/2020 12:00:00 AM EDT acti ve Scooter Chair eCW1 ([facility]) meloxicam 7.5 MG Oral Tablet Meloxicam 7.5 MG Meloxicam 7.5 MG 11/25/2020 12:00:00 AM EDT 1.0 {tablet} active Me loxicam 7.5 MG eCW1 ([facility]) meloxicam 7.5 MG Oral Tablet Meloxicam 7.5 MG Meloxicam 7.5 MG 11/25/2020 12:00:00 AM EDT 1.0 {tablet} suspended Meloxicam 7.5 MG eCW1 ([facility]) Scooter Chair UNK 11/25/2020 12:00:00 AM EDT acti ve Scooter Chair eCW1 ([facility]) Scooter Chair UNK 11/25/2020 12:00:00 AM EDT acti ve Scooter Chair eCW1 ([facility]) meloxicam 7.5 MG Oral Tablet Meloxicam 7.5 MG Meloxicam 7.5 MG 11/25/2020 12:00:00 AM EDT 1.0 {tablet} suspended Meloxicam 7.5 MG eCW1 ([facility]) meloxicam 7.5 MG Oral Tablet Meloxicam 7.5 MG Meloxicam 7.5 MG 11/25/2020 12:00:00 AM EDT 1.0 {tablet} active Me loxicam 7.5 MG eCW1 ([facility]) meloxicam 7.5 MG Oral Tablet Meloxicam 7.5 MG Meloxicam 7.5 MG 11/25/2020 12:00:00 AM EDT 1.0 {tablet} active Me loxicam 7.5 MG eCW1 ([facility]) Scooter Chair UNK 11/25/2020 12:00:00 AM EDT acti ve Scooter Chair eCW1 ([facility]) Scooter Chair UNK 11/25/2020 12:00:00 AM EDT acti ve Scooter Chair eCW1 ([facility]) meloxicam 7.5 MG Oral Tablet MELOXICAM 11/25/2020 12:00:00 AM EDT tabl et 30 TAKE ONE TABLET BY MOUTH EVERY DAY WITH FOOD TAKE ONE TABLET BY MOUTH EVERY DAY WITH FOOD SOLD: 11/25/2020 [facility] Scooter Chair UNK 11/25/2020 12:00:00 AM EDT acti ve Scooter Chair eCW1 ([facility]) 75 mcg 10/05/2020 12:00:00 AM EST tablet 90 TAKE ONE TABLET BY MOUTH EVERY DAY 30 MINUTES BEFORE BREAKFAST TAKE ONE TABLET BY MOUTH EVERY DAY 30 IA NUTES BEFORE BREAKFAST SOLD: 10/05/2020 [facility] [...] ONE TABLET BY MOUTH EVERY DAY 30 IA NUTES BEFORE BREAKFAST SOLD: 01/09/2021 [facility] [...] activ e Clopidogrel Bisulfate 75 MG eCW1 ([facility]) Lisinopril 10 MG Oral Tablet Lisinopril 10 MG 08/26/2020 12:00:00 A M EST 1.0 {tablet} active Lisinopril 10 MG eCW1 ( [facility]) atorvastatin 20 MG Oral Tablet Atorvastatin Calcium 20 MG Atorvastatin Calcium 20 MG 08/26/2020 12:00:00 AM EST 1.0 {tablet} activ e Atorvastatin Calcium 20 MG eCW1 ([facility]) clopidogrel 75 MG Oral Tablet Clopidogrel Bisulfate 75 MG Clopidogrel Bisulfate 75 MG 08/26/2020 12:00:00 AM EST 1.0 {tablet} activ e Clopidogrel Bisulfate 75 MG eCW1 ([facility]) Aspirin 81 MG Delayed Release Oral Tablet Aspirin EC 81 MG A spirin EC 81 MG 08/26/2020 12:00:00 AM EST 1.0 {tablet} active Aspirin EC 81 MG eCW1 ([facility]) atorvastatin 20 MG Oral Tablet Atorvastatin Calcium 20 MG Atorvastatin Calcium 20 MG 08/26/2020 12:00:00 AM EST 1.0 {tablet} activ e Atorvastatin Calcium 20 MG eCW1 ([facility]) Lisinopril 10 MG Oral Tablet Lisinopril 10 MG 08/26/2020 12:00:00 A M EST 1.0 {tablet} active Lisinopril 10 MG eCW1 ( [facility]) atorvastatin 20 MG Oral Tablet Atorvastatin Calcium 20 MG Atorvastatin Calcium 20 MG 08/26/2020 12:00:00 AM EST 1.0 {tablet} activ e Atorvastatin Calcium 20 MG eCW1 ([facility]) Lisinopril 10 MG Oral Tablet Lisinopril 10 MG 08/26/2020 12:00:00 A M EST 1.0 {tablet} active Lisinopril 10 MG eCW1 ( [facility]) Aspirin 81 MG Delayed Release Oral Tablet Aspirin EC 81 MG A spirin EC 81 MG 08/26/2020 12:00:00 AM EST 1.0 {tablet} active Aspirin EC 81 MG eCW1 ([facility]) clopidogrel 75 MG Oral Tablet Clopidogrel Bisulfate 75 MG Clopidogrel Bisulfate 75 MG 08/26/2020 12:00:00 AM EST 1.0 {tablet} activ e Clopidogrel Bisulfate 75 MG eCW1 ([facility]) atorvastatin 20 MG Oral Tablet Atorvastatin Calcium 20 MG Atorvastatin Calcium 20 MG 08/26/2020 12:00:00 AM EST 1.0 {tablet} activ e Atorvastatin Calcium 20 MG eCW1 ([facility]) Aspirin 81 MG Delayed Release Oral Tablet Aspirin EC 81 MG A spirin EC 81 MG 08/26/2020 12:00:00 AM EST 1.0 {tablet} active Aspirin EC 81 MG eCW1 ([facility]) atorvastatin 20 MG Oral Tablet Atorvastatin Calcium 20 MG Atorvastatin Calcium 20 MG 08/26/2020 12:00:00 AM EST 1.0 {tablet} activ e Atorvastatin Calcium 20 MG eCW1 ([facility]) Aspirin 81 MG Delayed Release Oral Tablet Aspirin EC 81 MG A spirin EC 81 MG 08/26/2020 12:00:00 AM EST 1.0 {tablet} active Aspirin EC 81 MG eCW1 ([facility]) clopidogrel 75 MG Oral Tablet Clopidogrel Bisulfate 75 MG Clopidogrel Bisulfate 75 MG 08/26/2020 12:00:00 AM EST 1.0 {tablet} activ e Clopidogrel Bisulfate 75 MG eCW1 ([facility]) Aspirin 81 MG Delayed Release Oral Tablet Aspirin EC 81 MG A spirin EC 81 MG 08/26/2020 12:00:00 AM EST 1.0 {tablet} active Aspirin EC 81 MG eCW1 ([facility]) atorvastatin 20 MG Oral Tablet Atorvastatin Calcium 20 MG Atorvastatin Calcium 20 MG 08/26/2020 12:00:00 AM EST 1.0 {tablet} activ e Atorvastatin Calcium 20 MG eCW1 ([facility]) atorvastatin 20 MG Oral Tablet Atorvastatin Calcium 20 MG Atorvastatin Calcium 20 MG 08/26/2020 12:00:00 AM EST 1.0 {tablet} activ e Atorvastatin Calcium 20 MG eCW1 ([facility]) clopidogrel 75 MG Oral Tablet Clopidogrel Bisulfate 75 MG Clopidogrel Bisulfate 75 MG 08/26/2020 12:00:00 AM EST 1.0 {tablet} activ e Clopidogrel Bisulfate 75 MG eCW1 ([facility]) clopidogrel 75 MG Oral Tablet Clopidogrel Bisulfate 75 MG Clopidogrel Bisulfate 75 MG 08/26/2020 12:00:00 AM EST 1.0 {tablet} activ e Clopidogrel Bisulfate 75 MG eCW1 ([facility]) clopidogrel 75 MG Oral Tablet Clopidogrel Bisulfate 75 MG Clopidogrel Bisulfate 75 MG 08/26/2020 12:00:00 AM EST 1.0 {tablet} activ e Clopidogrel Bisulfate 75 MG eCW1 ([facility]) atorvastatin 20 MG Oral Tablet Atorvastatin Calcium 20 MG Atorvastatin Calcium 20 MG 08/26/2020 12:00:00 AM EST 1.0 {tablet} activ e Atorvastatin Calcium 20 MG eCW1 ([facility]) clopidogrel 75 MG Oral Tablet Clopidogrel Bisulfate 75 MG Clopidogrel Bisulfate 75 MG 08/26/2020 12:00:00 AM EST 1.0 {tablet} activ e Clopidogrel Bisulfate 75 MG eCW1 ([facility]) atorvastatin 20 MG Oral Tablet Atorvastatin Calcium 20 MG Atorvastatin Calcium 20 MG 08/26/2020 12:00:00 AM EST 1.0 {tablet} activ e Atorvastatin Calcium 20 MG eCW1 ([facility]) Aspirin 81 MG Delayed Release Oral Tablet Aspirin EC 81 MG A spirin EC 81 MG 08/26/2020 12:00:00 AM EST 1.0 {tablet} active Aspirin EC 81 MG eCW1 ([facility]) Lisinopril 10 MG Oral Tablet Lisinopril 10 MG 08/26/2020 12:00:00 A M EST 1.0 {tablet} active Lisinopril 10 MG eCW1 ( [facility]) Aspirin 81 MG Delayed Release Oral Tablet Aspirin EC 81 MG A spirin EC 81 MG 08/26/2020 12:00:00 AM EST 1.0 {tablet} active Aspirin EC 81 MG eCW1 ([facility]) Lisinopril 10 MG Oral Tablet Lisinopril 10 MG 08/26/2020 12:00:00 A M EST 1.0 {tablet} active Lisinopril 10 MG eCW1 ( [facility]) Lisinopril 10 MG Oral Tablet Lisinopril 10 MG 08/26/2020 12:00:00 A M EST 1.0 {tablet} active Lisinopril 10 MG eCW1 ( [facility]) 75 mg 08/26/2020 12:00:00 AM EST tablet 30 TAKE ONE TABLET BY MOUTH EVERY DAY TAKE ONE TABLET BY MOUTH EVERY DAY SOLD: 08/26/2020 [facility] Lisinopril 10 MG Oral Tablet Lisinopril 10 MG 08/26/2020 12:00:00 A M EST 1.0 {tablet} active Lisinopril 10 MG eCW1 ( [facility]) clopidogrel 75 MG Oral Tablet Clopidogrel Bisulfate 75 MG Clopidogrel Bisulfate 75 MG 08/26/2020 12:00:00 AM EST 1.0 {tablet} activ e Clopidogrel Bisulfate 75 MG eCW1 ([facility]) atorvastatin 20 MG Oral Tablet Atorvastatin Calcium 20 MG Atorvastatin Calcium 20 MG 08/26/2020 12:00:00 AM EST 1.0 {tablet} activ e Atorvastatin Calcium 20 MG eCW1 ([facility]) clopidogrel 75 MG Oral Tablet Clopidogrel Bisulfate 75 MG Clopidogrel Bisulfate 75 MG 08/26/2020 12:00:00 AM EST 1.0 {tablet} activ e Clopidogrel Bisulfate 75 MG eCW1 ([facility]) Lisinopril 10 MG Oral Tablet Lisinopril 10 MG 08/26/2020 12:00:00 A M EST 1.0 {tablet} active Lisinopril 10 MG eCW1 ( [facility]) atorvastatin 20 MG Oral Tablet Atorvastatin Calcium 20 MG Atorvastatin Calcium 20 MG 08/26/2020 12:00:00 AM EST 1.0 {tablet} activ e Atorvastatin Calcium 20 MG eCW1 ([facility]) Lisinopril 10 MG Oral Tablet Lisinopril 10 MG 08/26/2020 12:00:00 A M EST 1.0 {tablet} active Lisinopril 10 MG eCW1 ( [facility]) Aspirin 81 MG Delayed Release Oral Tablet Aspirin EC 81 MG A spirin EC 81 MG 08/26/2020 12:00:00 AM EST 1.0 {tablet} active Aspirin EC 81 MG eCW1 ([facility]) Lisinopril 10 MG Oral Tablet Lisinopril 10 MG 08/26/2020 12:00:00 A M EST 1.0 {tablet} active Lisinopril 10 MG eCW1 ( [facility]) 10 mg 08/26/2020 12:00:00 AM EST tablet 30 TAKE ONE TABLET BY MOUTH EVERY DAY TAKE ONE TABLET BY MOUTH EVERY DAY SOLD: 08/26/2020 [facility] atorvastatin 20 MG Oral Tablet Atorvastatin Calcium 20 MG Atorvastatin Calcium 20 MG 08/26/2020 12:00:00 AM EST 1.0 {tablet} activ e Atorvastatin Calcium 20 MG eCW1 ([facility]) atorvastatin 20 MG Oral Tablet Atorvastatin Calcium 20 MG Atorvastatin Calcium 20 MG 08/26/2020 12:00:00 AM EST 1.0 {tablet} activ e Atorvastatin Calcium 20 MG eCW1 ([facility]) Aspirin 81 MG Delayed Release Oral Tablet Aspirin EC 81 MG A spirin EC 81 MG 08/26/2020 12:00:00 AM EST 1.0 {tablet} active Aspirin EC 81 MG eCW1 ([facility]) Aspirin 81 MG Delayed Release Oral Tablet Aspirin EC 81 MG A spirin EC 81 MG 08/26/2020 12:00:00 AM EST 1.0 {tablet} active Aspirin EC 81 MG eCW1 ([facility]) Lisinopril 10 MG Oral Tablet Lisinopril 10 MG 08/26/2020 12:00:00 A M EST 1.0 {tablet} active Lisinopril 10 MG eCW1 ( [facility]) Aspirin 81 MG Delayed Release Oral Tablet Aspirin EC 81 MG A spirin EC 81 MG 08/26/2020 12:00:00 AM EST 1.0 {tablet} active Aspirin EC 81 MG eCW1 ([facility]) Aspirin 81 MG Delayed Release Oral Tablet Aspirin EC 81 MG A spirin EC 81 MG 08/26/2020 12:00:00 AM EST 1.0 {tablet} active Aspirin EC 81 MG eCW1 ([facility]) clopidogrel 75 MG Oral Tablet Clopidogrel Bisulfate 75 MG Clopidogrel Bisulfate 75 MG 08/26/2020 12:00:00 AM EST 1.0 {tablet} activ e Clopidogrel Bisulfate 75 MG eCW1 ([facility]) Lisinopril 10 MG Oral Tablet Lisinopril 10 MG 08/26/2020 12:00:00 A M EST 1.0 {tablet} active Lisinopril 10 MG eCW1 ( [facility]) atorvastatin 20 MG Oral Tablet Atorvastatin Calcium 20 MG Atorvastatin Calcium 20 MG 08/26/2020 12:00:00 AM EST 1.0 {tablet} activ e Atorvastatin Calcium 20 MG eCW1 ([facility]) clopidogrel 75 MG Oral Tablet Clopidogrel Bisulfate 75 MG Clopidogrel Bisulfate 75 MG 08/26/2020 12:00:00 AM EST 1.0 {tablet} activ e Clopidogrel Bisulfate 75 MG eCW1 ([facility]) atorvastatin 20 MG Oral Tablet Atorvastatin Calcium 20 MG Atorvastatin Calcium 20 MG 08/26/2020 12:00:00 AM EST 1.0 {tablet} activ e Atorvastatin Calcium 20 MG eCW1 ([facility]) atorvastatin 20 MG Oral Tablet Atorvastatin Calcium 20 MG Atorvastatin Calcium 20 MG 08/26/2020 12:00:00 AM EST 1.0 {tablet} activ e Atorvastatin Calcium 20 MG eCW1 ([facility]) Aspirin 81 MG Delayed Release Oral Tablet Aspirin EC 81 MG A spirin EC 81 MG 08/26/2020 12:00:00 AM EST 1.0 {tablet} active Aspirin EC 81 MG eCW1 ([facility]) atorvastatin 20 MG Oral Tablet Atorvastatin Calcium 20 MG Atorvastatin Calcium 20 MG 08/26/2020 12:00:00 AM EST 1.0 {tablet} activ e Atorvastatin Calcium 20 MG eCW1 ([facility]) clopidogrel 75 MG Oral Tablet Clopidogrel Bisulfate 75 MG Clopidogrel Bisulfate 75 MG 08/26/2020 12:00:00 AM EST 1.0 {tablet} activ e Clopidogrel Bisulfate 75 MG eCW1 ([facility]) atorvastatin 20 MG Oral Tablet Atorvastatin Calcium 20 MG Atorvastatin Calcium 20 MG 08/26/2020 12:00:00 AM EST 1.0 {tablet} activ e Atorvastatin Calcium 20 MG eCW1 ([facility]) Aspirin 81 MG Delayed Release Oral Tablet Aspirin EC 81 MG A spirin EC 81 MG 08/26/2020 12:00:00 AM EST 1.0 {tablet} active Aspirin EC 81 MG eCW1 ([facility]) Lisinopril 10 MG Oral Tablet Lisinopril 10 MG 08/26/2020 12:00:00 A M EST 1.0 {tablet} active Lisinopril 10 MG eCW1 ( [facility]) Lisinopril 10 MG Oral Tablet Lisinopril 10 MG 08/26/2020 12:00:00 A M EST 1.0 {tablet} active Lisinopril 10 MG eCW1 ( [facility]) Lisinopril 10 MG Oral Tablet Lisinopril 10 MG 08/26/2020 12:00:00 A M EST 1.0 {tablet} active Lisinopril 10 MG eCW1 ( [facility]) clopidogrel 75 MG Oral Tablet Clopidogrel Bisulfate 75 MG Clopidogrel Bisulfate 75 MG 08/26/2020 12:00:00 AM EST 1.0 {tablet} activ e Clopidogrel Bisulfate 75 MG eCW1 ([facility]) clopidogrel 75 MG Oral Tablet Clopidogrel Bisulfate 75 MG Clopidogrel Bisulfate 75 MG 08/26/2020 12:00:00 AM EST 1.0 {tablet} activ e Clopidogrel Bisulfate 75 MG eCW1 ([facility]) Aspirin 81 MG Delayed Release Oral Tablet Aspirin EC 81 MG A spirin EC 81 MG 08/26/2020 12:00:00 AM EST 1.0 {tablet} active Aspirin EC 81 MG eCW1 ([facility]) Lisinopril 10 MG Oral Tablet Lisinopril 10 MG 08/26/2020 12:00:00 A M EST 1.0 {tablet} active Lisinopril 10 MG eCW1 ( [facility]) clopidogrel 75 MG Oral Tablet Clopidogrel Bisulfate 75 MG Clopidogrel Bisulfate 75 MG 08/26/2020 12:00:00 AM EST 1.0 {tablet} activ e Clopidogrel Bisulfate 75 MG eCW1 ([facility]) 81 mg 08/26/2020 12:00:00 AM EST tablet,delayed release (DR/EC) 30 TAKE ONE TABLET BY MOUTH EVERY DAY TAKE ONE TABLET BY MOUTH EVERY DAY SOLD: 08/26/2020 [facility] Lisinopril 10 MG Oral Tablet Lisinopril 10 MG 08/26/2020 12:00:00 A M EST 1.0 {tablet} active Lisinopril 10 MG eCW1 ( [facility]) clopidogrel 75 MG Oral Tablet Clopidogrel Bisulfate 75 MG Clopidogrel Bisulfate 75 MG 08/26/2020 12:00:00 AM EST 1.0 {tablet} activ e Clopidogrel Bisulfate 75 MG eCW1 ([facility]) Lisinopril 10 MG Oral Tablet Lisinopril 10 MG 08/26/2020 12:00:00 A M EST 1.0 {tablet} active Lisinopril 10 MG eCW1 ( [facility]) clopidogrel 75 MG Oral Tablet Clopidogrel Bisulfate 75 MG Clopidogrel Bisulfate 75 MG 08/26/2020 12:00:00 AM EST 1.0 {tablet} activ e Clopidogrel Bisulfate 75 MG eCW1 ([facility]) atorvastatin 20 MG Oral Tablet Atorvastatin Calcium 20 MG Atorvastatin Calcium 20 MG 08/26/2020 12:00:00 AM EST 1.0 {tablet} activ e Atorvastatin Calcium 20 MG eCW1 ([facility]) Lisinopril 10 MG Oral Tablet Lisinopril 10 MG 08/26/2020 12:00:00 A M EST 1.0 {tablet} active Lisinopril 10 MG eCW1 ( [facility]) Aspirin 81 MG Delayed Release Oral Tablet Aspirin EC 81 MG A spirin EC 81 MG 08/26/2020 12:00:00 AM EST 1.0 {tablet} active Aspirin EC 81 MG eCW1 ([facility]) Aspirin 81 MG Delayed Release Oral Tablet Aspirin EC 81 MG A spirin EC 81 MG 08/26/2020 12:00:00 AM EST 1.0 {tablet} active Aspirin EC 81 MG eCW1 ([facility]) clopidogrel 75 MG Oral Tablet Clopidogrel Bisulfate 75 MG Clopidogrel Bisulfate 75 MG 08/26/2020 12:00:00 AM EST 1.0 {tablet} activ e Clopidogrel Bisulfate 75 MG eCW1 ([facility]) Aspirin 81 MG Delayed Release Oral Tablet Aspirin EC 81 MG A spirin EC 81 MG 08/26/2020 12:00:00 AM EST 1.0 {tablet} active Aspirin EC 81 MG eCW1 ([facility]) Aspirin 81 MG Delayed Release Oral Tablet Aspirin EC 81 MG A spirin EC 81 MG 08/26/2020 12:00:00 AM EST 1.0 {tablet} active Aspirin EC 81 MG eCW1 ([facility]) Estradiol 0.1 MG/ML Vaginal Cream Estradiol 0.1 MG/GM Estrad iol 0.1 MG/GM 08/04/2020 12:00:00 AM EST active Estradiol 0.1 MG/GM eCW1 ([facility]) Estradiol 0.1 MG/ML Vaginal Cream Estradiol 0.1 MG/GM Estrad iol 0.1 MG/GM 08/04/2020 12:00:00 AM EST active Estradiol 0.1 MG/GM eCW1 ([facility]) Estradiol 0.1 MG/ML Vaginal Cream Estradiol 0.1 MG/GM Estrad iol 0.1 MG/GM 08/04/2020 12:00:00 AM EST active Estradiol 0.1 MG/GM eCW1 ([facility]) Estradiol 0.1 MG/ML Vaginal Cream Estradiol 0.1 MG/GM Estrad iol 0.1 MG/GM 08/04/2020 12:00:00 AM EST active Estradiol 0.1 MG/GM eCW1 ([facility]) Estradiol 0.1 MG/ML Vaginal Cream Estradiol 0.1 MG/GM Estrad iol 0.1 MG/GM 08/04/2020 12:00:00 AM EST active Estradiol 0.1 MG/GM eCW1 ([facility]) Estradiol 0.1 MG/ML Vaginal Cream Estradiol 0.1 MG/GM Estrad iol 0.1 MG/GM 08/04/2020 12:00:00 AM EST active Estradiol 0.1 MG/GM eCW1 ([facility]) Estradiol 0.1 MG/ML Vaginal Cream Estradiol 0.1 MG/GM Estrad iol 0.1 MG/GM 08/04/2020 12:00:00 AM EST active Estradiol 0.1 MG/GM eCW1 ([facility]) Estradiol 0.1 MG/ML Vaginal Cream Estradiol 0.1 MG/GM Estrad iol 0.1 MG/GM 08/04/2020 12:00:00 AM EST active Estradiol 0.1 MG/GM eCW1 ([facility]) Estradiol 0.1 MG/ML Vaginal Cream Estradiol 0.1 MG/GM Estrad iol 0.1 MG/GM 08/04/2020 12:00:00 AM EST active Estradiol 0.1 MG/GM eCW1 ([facility]) Estradiol 0.1 MG/ML Vaginal Cream Estradiol 0.1 MG/GM Estrad iol 0.1 MG/GM 08/04/2020 12:00:00 AM EST active Estradiol 0.1 MG/GM eCW1 ([facility]) Estradiol 0.1 MG/ML Vaginal Cream Estradiol 0.1 MG/GM Estrad iol 0.1 MG/GM 08/04/2020 12:00:00 AM EST active Estradiol 0.1 MG/GM eCW1 ([facility]) Estradiol 0.1 MG/ML Vaginal Cream Estradiol 0.1 MG/GM Estrad iol 0.1 MG/GM 08/04/2020 12:00:00 AM EST active Estradiol 0.1 MG/GM eCW1 ([facility]) Estradiol 0.1 MG/ML Vaginal Cream Estradiol 0.1 MG/GM Estrad iol 0.1 MG/GM 08/04/2020 12:00:00 AM EST active Estradiol 0.1 MG/GM eCW1 ([facility]) Estradiol 0.1 MG/ML Vaginal Cream Estradiol 0.1 MG/GM Estrad iol 0.1 MG/GM 08/04/2020 12:00:00 AM EST active Estradiol 0.1 MG/GM eCW1 ([facility]) Estradiol 0.1 MG/ML Vaginal Cream Estradiol 0.1 MG/GM Estrad iol 0.1 MG/GM 08/04/2020 12:00:00 AM EST active Estradiol 0.1 MG/GM eCW1 ([facility]) Estradiol 0.1 MG/ML Vaginal Cream Estradiol 0.1 MG/GM Estrad iol 0.1 MG/GM 08/04/2020 12:00:00 AM EST active Estradiol 0.1 MG/GM eCW1 ([facility]) Estradiol 0.1 MG/ML Vaginal Cream Estradiol 0.1 MG/GM Estrad iol 0.1 MG/GM 08/04/2020 12:00:00 AM EST active Estradiol 0.1 MG/GM eCW1 ([facility]) Estradiol 0.1 MG/ML Vaginal Cream Estradiol 0.1 MG/GM Estrad iol 0.1 MG/GM 08/04/2020 12:00:00 AM EST active Estradiol 0.1 MG/GM eCW1 ([facility]) Estradiol 0.1 MG/ML Vaginal Cream Estradiol 0.1 MG/GM Estrad iol 0.1 MG/GM 08/04/2020 12:00:00 AM EST active Estradiol 0.1 MG/GM eCW1 ([facility]) Estradiol 0.1 MG/ML Vaginal Cream Estradiol 0.1 MG/GM Estrad iol 0.1 MG/GM 08/04/2020 12:00:00 AM EST active Estradiol 0.1 MG/GM eCW1 ([facility]) Estradiol 0.1 MG/ML Vaginal Cream Estradiol 0.1 MG/GM Estrad iol 0.1 MG/GM 08/04/2020 12:00:00 AM EST active Estradiol 0.1 MG/GM eCW1 ([facility]) 0.05 % 07/30/2020 12:00:00 AM EST ointment [...] {application} active Clobetasol Propionate 0.05 % eCW1 ([facility]) Clobetasol Propionate 0.0005 MG/MG Topic al Ointment Clobetasol Propionate 0.05 % Clobetasol Propionate 0.05 % 07/29/2020 12:00:00 AM EST 1.0 {application} active Clobetasol Propionate 0.05 % eCW1 ([facility]) Clobetasol Propionate 0.0005 MG/MG Topic al Ointment Clobetasol Propionate 0.05 % Clobetasol Propionate 0.05 % 07/29/2020 12:00:00 AM EST 1.0 {application} active Clobetasol Propionate 0.05 % eCW1 ([facility]) Clobetasol Propionate 0.0005 MG/MG Topic al Ointment Clobetasol Propionate 0.05 % Clobetasol Propionate 0.05 % 07/29/2020 12:00:00 AM EST 1.0 {application} active Clobetasol Propionate 0.05 % eCW1 ([facility]) Clobetasol Propionate 0.0005 MG/MG Topic al Ointment Clobetasol Propionate 0.05 % Clobetasol Propionate 0.05 % 07/29/2020 12:00:00 AM EST 1.0 {application} active Clobetasol Propionate 0.05 % eCW1 ([facility]) Clobetasol Propionate 0.0005 MG/MG Topic al Ointment Clobetasol Propionate 0.05 % Clobetasol Propionate 0.05 % 07/29/2020 12:00:00 AM EST 1.0 {application} active Clobetasol Propionate 0.05 % eCW1 ([facility]) Clobetasol Propionate 0.0005 MG/MG Topic al Ointment Clobetasol Propionate 0.05 % Clobetasol Propionate 0.05 % 07/29/2020 12:00:00 AM EST 1.0 {application} active Clobetasol Propionate 0.05 % eCW1 ([facility]) Clobetasol Propionate 0.0005 MG/MG Topic al Ointment Clobetasol Propionate 0.05 % Clobetasol Propionate 0.05 % 07/29/2020 12:00:00 AM EST 1.0 {application} active Clobetasol Propionate 0.05 % eCW1 ([facility]) Clobetasol Propionate 0.0005 MG/MG Topic al Ointment Clobetasol Propionate 0.05 % Clobetasol Propionate 0.05 % 07/29/2020 12:00:00 AM EST 1.0 {application} active Clobetasol Propionate 0.05 % eCW1 ([facility]) Clobetasol Propionate 0.0005 MG/MG Topic al Ointment Clobetasol Propionate 0.05 % Clobetasol Propionate 0.05 % 07/29/2020 12:00:00 AM EST 1.0 {application} active Clobetasol Propionate 0.05 % eCW1 ([facility]) Clobetasol Propionate 0.0005 MG/MG Topic al Ointment Clobetasol Propionate 0.05 % Clobetasol Propionate 0.05 % 07/29/2020 12:00:00 AM EST 1.0 {application} active Clobetasol Propionate 0.05 % eCW1 ([facility]) Clobetasol Propionate 0.0005 MG/MG Topic al Ointment Clobetasol Propionate 0.05 % Clobetasol Propionate 0.05 % 07/29/2020 12:00:00 AM EST 1.0 {application} active Clobetasol Propionate 0.05 % eCW1 ([facility]) Clobetasol Propionate 0.0005 MG/MG Topic al Ointment Clobetasol Propionate 0.05 % Clobetasol Propionate 0.05 % 07/29/2020 12:00:00 AM EST 1.0 {application} active Clobetasol Propionate 0.05 % eCW1 ([facility]) Clobetasol Propionate 0.0005 MG/MG Topic al Ointment Clobetasol Propionate 0.05 % Clobetasol Propionate 0.05 % 07/29/2020 12:00:00 AM EST 1.0 {application} active Clobetasol Propionate 0.05 % eCW1 ([facility]) Clobetasol Propionate 0.0005 MG/MG Topic al Ointment Clobetasol Propionate 0.05 % Clobetasol Propionate 0.05 % 07/29/2020 12:00:00 AM EST 1.0 {application} active Clobetasol Propionate 0.05 % eCW1 ([facility]) Clobetasol Propionate 0.0005 MG/MG Topic al Ointment Clobetasol Propionate 0.05 % Clobetasol Propionate 0.05 % 07/29/2020 12:00:00 AM EST 1.0 {application} active Clobetasol Propionate 0.05 % eCW1 ([facility]) Clobetasol Propionate 0.0005 MG/MG Topic al Ointment Clobetasol Propionate 0.05 % Clobetasol Propionate 0.05 % 07/29/2020 12:00:00 AM EST 1.0 {application} active Clobetasol Propionate 0.05 % eCW1 ([facility]) Clobetasol Propionate 0.0005 MG/MG Topic al Ointment Clobetasol Propionate 0.05 % Clobetasol Propionate 0.05 % 07/29/2020 12:00:00 AM EST 1.0 {application} active Clobetasol Propionate 0.05 % eCW1 ([facility]) Clobetasol Propionate 0.0005 MG/MG Topic al Ointment Clobetasol Propionate 0.05 % Clobetasol Propionate 0.05 % 07/29/2020 12:00:00 AM EST 1.0 {application} active Clobetasol Propionate 0.05 % eCW1 ([facility]) Clobetasol Propionate 0.0005 MG/MG Topic al Ointment Clobetasol Propionate 0.05 % Clobetasol Propionate 0.05 % 07/29/2020 12:00:00 AM EST 1.0 {application} active Clobetasol Propionate 0.05 % eCW1 ([facility]) Clobetasol Propionate 0.0005 MG/MG Topic al Ointment Clobetasol Propionate 0.05 % Clobetasol Propionate 0.05 % 07/29/2020 12:00:00 AM EST 1.0 {application} active Clobetasol Propionate 0.05 % eCW1 ([facility]) Clobetasol Propionate 0.0005 MG/MG Topic al Ointment Clobetasol Propionate 0.05 % Clobetasol Propionate 0.05 % 07/29/2020 12:00:00 AM EST 1.0 {application} active Clobetasol Propionate 0.05 % eCW1 ([facility]) Clobetasol Propionate 0.0005 MG/MG Topic al Ointment Clobetasol Propionate 0.05 % Clobetasol Propionate 0.05 % 07/29/2020 12:00:00 AM EST 1.0 {application} active Clobetasol Propionate 0.05 % eCW1 ([facility]) Clobetasol Propionate 0.0005 MG/MG Topic al Ointment Clobetasol Propionate 0.05 % Clobetasol Propionate 0.05 % 07/29/2020 12:00:00 AM EST 1.0 {application} active Clobetasol Propionate 0.05 % eCW1 ([facility]) Estrogens, Conjugated (FCI) 0.625 MG/ML Vaginal Cream [Premarin] Premarin 0.625 MG/GM Premarin 0.625 MG/GM 07/25/2020 12:00:00 AM EST active Premarin 0.625 MG/GM eCW1 ([facility]) Estrogens, Conjugated (FCI) 0.625 MG/ML Vaginal Cream [Premarin] Premarin 0.625 MG/GM Premarin 0.625 MG/GM 07/25/2020 12:00:00 AM EST active Premarin 0.625 MG/GM eCW1 ([facility]) Estrogens, Conjugated (FCI) 0.625 MG/ML Vaginal Cream [Premarin] Premarin 0.625 MG/GM Premarin 0.625 MG/GM 07/25/2020 12:00:00 AM EST active Premarin 0.625 MG/GM eCW1 ([facility]) Estrogens, Conjugated (FCI) 0.625 MG/ML Vaginal Cream [Premarin] Premarin 0.625 MG/GM Premarin 0.625 MG/GM 07/25/2020 12:00:00 AM EST active Premarin 0.625 MG/GM eCW1 ([facility]) Estrogens, Conjugated (FCI) 0.625 MG/ML Vaginal Cream [Premarin] Premarin 0.625 MG/GM Premarin 0.625 MG/GM 07/25/2020 12:00:00 AM EST active Premarin 0.625 MG/GM eCW1 ([facility]) Estrogens, Conjugated (FCI) 0.625 MG/ML Vaginal Cream [Premarin] Premarin 0.625 MG/GM Premarin 0.625 MG/GM 07/25/2020 12:00:00 AM EST active Premarin 0.625 MG/GM eCW1 ([facility]) Estrogens, Conjugated (FCI) 0.625 MG/ML Vaginal Cream [Premarin] Premarin 0.625 MG/GM Premarin 0.625 MG/GM 07/25/2020 12:00:00 AM EST active Premarin 0.625 MG/GM eCW1 ([facility]) Estrogens, Conjugated (FCI) 0.625 MG/ML Vaginal Cream [Premarin] Premarin 0.625 MG/GM Premarin 0.625 MG/GM 07/25/2020 12:00:00 AM EST active Premarin 0.625 MG/GM eCW1 ([facility]) Estrogens, Conjugated (FCI) 0.625 MG/ML Vaginal Cream [Premarin] Premarin 0.625 MG/GM Premarin 0.625 MG/GM 07/25/2020 12:00:00 AM EST active Premarin 0.625 MG/GM eCW1 ([facility]) Estrogens, Conjugated (FCI) 0.625 MG/ML Vaginal Cream [Premarin] Premarin 0.625 MG/GM Premarin 0.625 MG/GM 07/25/2020 12:00:00 AM EST active Premarin 0.625 MG/GM eCW1 ([facility]) Estrogens, Conjugated (FCI) 0.625 MG/ML Vaginal Cream [Premarin] Premarin 0.625 MG/GM Premarin 0.625 MG/GM 07/25/2020 12:00:00 AM EST active Premarin 0.625 MG/GM eCW1 ([facility]) Estrogens, Conjugated (FCI) 0.625 MG/ML Vaginal Cream [Premarin] Premarin 0.625 MG/GM Premarin 0.625 MG/GM 07/25/2020 12:00:00 AM EST active Premarin 0.625 MG/GM eCW1 ([facility]) Estrogens, Conjugated (FCI) 0.625 MG/ML Vaginal Cream [Premarin] Premarin 0.625 MG/GM Premarin 0.625 MG/GM 07/25/2020 12:00:00 AM EST active Premarin 0.625 MG/GM eCW1 ([facility]) Estrogens, Conjugated (FCI) 0.625 MG/ML Vaginal Cream [Premarin] Premarin 0.625 MG/GM Premarin 0.625 MG/GM 07/25/2020 12:00:00 AM EST active Premarin 0.625 MG/GM eCW1 ([facility]) Estrogens, Conjugated (FCI) 0.625 MG/ML Vaginal Cream [Premarin] Premarin 0.625 MG/GM Premarin 0.625 MG/GM 07/25/2020 12:00:00 AM EST active Premarin 0.625 MG/GM eCW1 ([facility]) Estrogens, Conjugated (FCI) 0.625 MG/ML Vaginal Cream [Premarin] Premarin 0.625 MG/GM Premarin 0.625 MG/GM 07/25/2020 12:00:00 AM EST active Premarin 0.625 MG/GM eCW1 ([facility]) Estrogens, Conjugated (FCI) 0.625 MG/ML Vaginal Cream [Premarin] Premarin 0.625 MG/GM Premarin 0.625 MG/GM 07/25/2020 12:00:00 AM EST active Premarin 0.625 MG/GM eCW1 ([facility]) Estrogens, Conjugated (FCI) 0.625 MG/ML Vaginal Cream [Premarin] Premarin 0.625 MG/GM Premarin 0.625 MG/GM 07/25/2020 12:00:00 AM EST active Premarin 0.625 MG/GM eCW1 ([facility]) Estrogens, Conjugated (FCI) 0.625 MG/ML Vaginal Cream [Premarin] Premarin 0.625 MG/GM Premarin 0.625 MG/GM 07/25/2020 12:00:00 AM EST active Premarin 0.625 MG/GM eCW1 ([facility]) Estrogens, Conjugated (FCI) 0.625 MG/ML Vaginal Cream [Premarin] Premarin 0.625 MG/GM Premarin 0.625 MG/GM 07/25/2020 12:00:00 AM EST active Premarin 0.625 MG/GM eCW1 ([facility]) Estrogens, Conjugated (FCI) 0.625 MG/ML Vaginal Cream [Premarin] Premarin 0.625 MG/GM Premarin 0.625 MG/GM 07/25/2020 12:00:00 AM EST active Premarin 0.625 MG/GM eCW1 ([facility]) Estrogens, Conjugated (FCI) 0.625 MG/ML Vaginal Cream [Premarin] Premarin 0.625 MG/GM Premarin 0.625 MG/GM 07/25/2020 12:00:00 AM EST active Premarin 0.625 MG/GM eCW1 ([facility]) Estrogens, Conjugated (FCI) 0.625 MG/ML Vaginal Cream [Premarin] Premarin 0.625 MG/GM Premarin 0.625 MG/GM 07/25/2020 12:00:00 AM EST active Premarin 0.625 MG/GM eCW1 ([facility]) Estrogens, Conjugated (FCI) 0.625 MG/ML Vaginal Cream [Premarin] Premarin 0.625 MG/GM Premarin 0.625 MG/GM 07/25/2020 12:00:00 AM EST active Premarin 0.625 MG/GM eCW1 ([facility]) 75 mcg 06/27/2020 12:00:00 AM EST tablet 90 TAKE ONE TABLET BY MOUTH EVERY DAY DIRECTED TAKE ONE TABLET BY MOUTH EVERY DAY DIRECTED SOLD: 020 [facility] Rosuvastatin calcium 40 MG Oral Tablet [Crestor] Crestor 40 MG Crestor 40 MG 06/03/2020 12:00:00 AM EDT 1.0 {tablet} suspended Crestor 40 MG eCW1 ([facility]) Rosuvastatin calcium 40 MG Oral Tablet [Crestor] Crestor 40 MG Crestor 40 MG 06/03/2020 12:00:00 AM EDT 1.0 {tablet} suspended Crestor 40 MG eCW1 ([facility]) Rosuvastatin calcium 40 MG Oral Tablet [Crestor] Crestor 40 MG Crestor 40 MG 06/03/2020 12:00:00 AM EDT 1.0 {tablet} active Crestor 40 MG eCW1 ([facility]) Rosuvastatin calcium 40 MG Oral Tablet [Crestor] Crestor 40 MG Crestor 40 MG 06/03/2020 12:00:00 AM EDT 1.0 {tablet} suspended Crestor 40 MG eCW1 ([facility]) Rosuvastatin calcium 40 MG Oral Tablet [Crestor] Crestor 40 MG Crestor 40 MG 06/03/2020 12:00:00 AM EDT 1.0 {tablet} active Crestor 40 MG eCW1 ([facility]) Rosuvastatin calcium 40 MG Oral Tablet [Crestor] Crestor 40 MG Crestor 40 MG 06/03/2020 12:00:00 AM EDT 1.0 {tablet} active Crestor 40 MG eCW1 ([facility]) Rosuvastatin calcium 40 MG Oral Tablet [Crestor] Crestor 40 MG Crestor 40 MG 06/03/2020 12:00:00 AM EDT 1.0 {tablet} active Crestor 40 MG eCW1 ([facility]) Rosuvastatin calcium 40 MG Oral Tablet [Crestor] Crestor 40 MG Crestor 40 MG 06/03/2020 12:00:00 AM EDT 1.0 {tablet} suspended Crestor 40 MG eCW1 ([facility]) Rosuvastatin calcium 40 MG Oral Tablet [Crestor] Crestor 40 MG Crestor 40 MG 06/03/2020 12:00:00 AM EDT 1.0 {tablet} active Crestor 40 MG eCW1 ([facility]) Rosuvastatin calcium 40 MG Oral Tablet [Crestor] Crestor 40 MG Crestor 40 MG 06/03/2020 12:00:00 AM EDT 1.0 {tablet} suspended Crestor 40 MG eCW1 ([facility]) Insurance Providers Payer name Policy type / Coverage type Policy ID Covered democrat ID Covered democrat's relationship to lo Policy Lo Plan Information MEDICARE [id number] SP [id number] A [id number] A MEDICARE C [id number] S [id number] [id number] AETNA MEDICARE O [id number] S [id number] MEDICARE [id number] SP [id number] H00 AETNA MEDICARE [id number] SP [id number] MEDICARE [id number] SP [id number] AETNA MEDICARE [id number] SP [id number] MEDICARE COMPLETE [id number] SP ME [id number] MEDICARE COMPLETE [id number] SP [id number] MEDICARE COMPLETE [id number] SP [id number] ANSI-Medicare Part B [id number] ANSI-Medicare Part B [id number] MEDICARE UNK SP UNK ANSI-Medicare Part B [id number] ANSI-Medicare Part B [id number] ANSI-Medicare Part B [id number] ANSI-Medicare Part B [id number] ANSI-Medicare Part B [id number] ANSI-Medicare Part B [id number] ANSI-Medicare Part B [id number] ANSI-Medicare Part B [id number] ANSI-Medicare Part B [id number] ANSI-Medicare Part B [id number] ANSI-Medicare Part B [id number] ANSI-Medicare Part B [id number] ANSI-Medicare Part B [id number] ANSI-Medicare Part B [id number] ANSI-Medicare Part B [id number] ANSI-Medicare Part B [id number] ANSI-Medicare Part B [id number] ANSI-Medicare Part B [id number] MEDICARE COMPLETE [id number] 92 [id number] [facility] [id number] S [id number] [employer] OPTIONS/ROMANIAN O [id number] S [id number] AETNA MEDICARE [id number] SP [id number] MEDICARE [id number] SP [id number] A MEDICARE C [id number] S [id number] A P UNAVAILABLE UNA[place]ILA BLE [place] [id number] [place] [id number] MEDICARE [id number] SP [id number] [id number] Problems, Conditions, and Diagnoses Code Display Name Description Problem Type Effective Dates Data Source(s) R26.81 [id number] Unsteady gait Problem 11/25/2020 12:00:00 AM EDT eCW1 ([facility]) Z91.19 [id number] Medical non-compliance Problem 10/10/2020 12 :00:00 AM EST eCW1 ([facility]) Z86.73 [id number] History of stroke Problem 10/10/2020 12:00:0 0 AM EST eCW1 ([facility]) R26.89 [id number] Imbalance Problem 10/04/2020 12:00:00 AM ES T eCW1 ([facility]) N90.4 [id number] Lichen sclerosus of female genitalia Prob liv 07/31/2020 12:00:00 AM EST eCW1 ([facility]) R45.89 [id number] Need for emotional support Problem 0 12:00:00 AM EST eCW1 ([facility]) F03.90 [id number] Dementia without beh avioral disturbance, unspecified dementia type Problem 07/25/2020 12:00:00 AM EST eCW1 ([facility]) N95.2 [id number] Vaginal atrophy Problem 07/25/2020 12:00:00 AM EST eCW1 ([facility]) Z53.20 [id number] 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 Pro blem 06/11/2020 12:00:00 AM EDT eCW1 ([facility]) Z91.89 [id number] Driving safety issue Problem 06/11/2020 12:0 0:00 AM EDT eCW1 ([facility]) Z53.20 [id number] Patient refused evaluation or treatment Minh jeter 06/11/2020 12:00:00 AM EDT eCW1 ([facility]) R47.89 [id number] Word finding difficulty Problem 06/11/2020 1 2:00:00 AM EDT eCW1 ([facility]) G45.9 [id number] TIA (transient ischemic attack) Problem 06/03/2020 12:00:00 AM EDT eCW1 ([facility]) Surgeries/Procedures No Information Results ID Date Data Source [id number] 08/24/2020 06:42:00 PM EST [place] Name Value Range Interpretation Code Description Data Dea rce(s) Supporting Document(s) SARS-CoV-2 (COVID 19) NEGATIVE - SARS-CoV-2 (COVID19) [facility] This lab was ordered by [facility] a nd reported by [facility]. Procedure Social History Code Duration Value Status Description Data Source(s ) Smoking 01/20/2021 12:00:00 AM EDT Never Smoker completed Never S moker eCW1 ([facility]) Smoking 01/20/2021 12:00:00 AM EDT Never Smoker completed Never S moker eCW1 ([facility]) Smoking 01/20/2021 12:00:00 AM EDT Never Smoker completed Never S moker eCW1 ([facility]) Smoking 11/25/2020 12:00:00 AM EDT Never Smoker completed Never S moker eCW1 ([facility]) Smoking 11/25/2020 12:00:00 AM EDT Never Smoker completed Never S moker eCW1 ([facility]) Smoking 11/25/2020 12:00:00 AM EDT Never Smoker completed Never S moker eCW1 ([facility]) Smoking 11/25/2020 12:00:00 AM EDT Never Smoker completed Never S moker eCW1 ([facility]) Smoking 11/25/2020 12:00:00 AM EDT Never Smoker completed Never S moker eCW1 ([facility]) Smoking 11/25/2020 12:00:00 AM EDT Never Smoker completed Never S moker eCW1 ([facility]) Smoking 10/25/2020 12:00:00 AM EDT Never Smoker completed Never S moker eCW1 ([facility]) Smoking 10/25/2020 12:00:00 AM EDT Never Smoker completed Never S moker eCW1 ([facility]) Smoking 10/25/2020 12:00:00 AM EDT Never Smoker completed Never S moker eCW1 ([facility]) Smoking 10/16/2020 12:00:00 AM EST Never Smoker completed Never S moker eCW1 ([facility]) Smoking 10/16/2020 12:00:00 AM EST Never Smoker completed Never S moker eCW1 ([facility]) Smoking 10/04/2020 12:00:00 AM EST Never Smoker completed Never S moker eCW1 ([facility]) Smoking 10/04/2020 12:00:00 AM EST Never Smoker completed Never S moker eCW1 ([facility]) Smoking 09/08/2020 12:00:00 AM EST Never Smoker completed Never S moker eCW1 ([facility]) Smoking 07/25/2020 12:00:00 AM EST Never Smoker completed Never S moker eCW1 ([facility]) Smoking 07/25/2020 12:00:00 AM EST Never Smoker completed Never S moker eCW1 ([facility]) Smoking 07/25/2020 12:00:00 AM EST Never Smoker completed Never S moker eCW1 ([facility]) Smoking 07/25/2020 12:00:00 AM EST Never Smoker completed Never S moker eCW1 ([facility]) Smoking 07/25/2020 12:00:00 AM EST Never Smoker completed Never S moker eCW1 ([facility]) Smoking 07/25/2020 12:00:00 AM EST Never Smoker completed Never S moker eCW1 ([facility]) Smoking 07/25/2020 12:00:00 AM EST Never Smoker completed Never S moker eCW1 ([facility]) Smoking 06/14/2020 12:00:00 AM EST Never Smoker completed Never S moker eCW1 ([facility]) Smoking 06/14/2020 12:00:00 AM EST Never Smoker completed Never S moker eCW1 ([facility]) Smoking 06/14/2020 12:00:00 AM EST Never Smoker completed Never S moker eCW1 ([facility]) Smoking 06/14/2020 12:00:00 AM EST Never Smoker completed Never S moker eCW1 ([facility]) Smoking 06/14/2020 12:00:00 AM EST Never Smoker completed Never S moker eCW1 ([facility]) Vital Signs ID Date Data Source UNK Name Value Range Interpretation Code Description Data Source(s) Body weight 148.8 [lb_av] 148.8 [lb_av] eCW1 ([facility]) Body height 65 [in_i] 65 [in_i] eCW1 ([facility]) Body mass index (BMI) [Ratio] 24.76 kg/m2 24.76 kg/m2 eCW1 ([facility]) Heart rate 96 /min 96 /min eCW1 ([facility]) Respiratory rate 18 /min 18 /min eCW1 ([facility]) Body temperature 97.1 [degF] 97.1 [degF] eCW1 ( [facility]) Systolic blood pressure 124 mm[Hg] 124 mm[Hg] e CW1 ([facility]) Diastolic blood pressure 76 mm[Hg] 76 mm[Hg] eCW1 ([facility]) Body weight 152.0 [lb_av] 152.0 [lb_av] eCW1 ([facility]) Body height 65 [in_i] 65 [in_i] eCW1 ([facility]) Body mass index (BMI) [Ratio] 25.29 kg/m2 25.29 kg/m2 eCW1 ([facility]) Heart rate 83 /min 83 /min eCW1 ([facility]) Respiratory rate 18 /min 18 /min eCW1 ([facility]) Body temperature 97.6 [degF] 97.6 [degF] eCW1 ( [facility]) Systolic blood pressure 122 mm[Hg] 122 mm[Hg] e CW1 ([facility]) Diastolic blood pressure 82 mm[Hg] 82 mm[Hg] eCW1 ([facility]) Body weight 154 [lb_av] 154 [lb_av] eCW1 ([facility]) Body height 65 [in_i] 65 [in_i] eCW1 ([facility]) Body mass index (BMI) [Ratio] 25.62 kg/m2 25.62 kg/m2 eCW1 ([facility]) Heart rate 75 /min 75 /min eCW1 ([facility]) Respiratory rate 18 /min 18 /min eCW1 ([facility]) Body temperature 98.6 [degF] 98.6 [degF] eCW1 ( [facility]) Systolic blood pressure 124 mm[Hg] 124 mm[Hg] e CW1 ([facility]) Diastolic blood pressure 78 mm[Hg] 78 mm[Hg] eCW1 ([facility]) Body weight 156.2 [lb_av] 156.2 [lb_av] eCW1 ([facility]) Body height 65 [in_i] 65 [in_i] eCW1 ([facility]) Body mass index (BMI) [Ratio] 25.99 kg/m2 25.99 kg/m2 eCW1 ([facility]) Heart rate 80 /min 80 /min eCW1 ([facility]) Respiratory rate 18 /min 18 /min eCW1 ([facility]) Body temperature 98.0 [degF] 98.0 [degF] eCW1 ( [facility]) Systolic blood pressure 146 mm[Hg] 146 mm[Hg] e CW1 ([facility]) Diastolic blood pressure 82 mm[Hg] 82 mm[Hg] eCW1 ([facility]) Patient Treatment Plan of Care Planned Activity Planned Date Details Description Data Source (s) December - 12/26/2020 12:00:00 AM EDT e CW1 ([facility]) May Have - 12/26/2020 12:00:00 AM EDT e CW1 ([facility]) May Have - 12/26/2020 12:00:00 AM EDT e CW1 ([facility]) May Have - 12/26/2020 12:00:00 AM EDT e CW1 ([facility]) meloxicam 7.5 MG Oral Tablet 11/25/2020 12:00:00 AM EDT eCW1 ([facility]) Scooter Chair 11/25/2020 12:00:00 AM EDT eCW1 ([facility]) meloxicam 7.5 MG Oral Tablet 11/25/2020 12:00:00 AM EDT eCW1 ([facility]) Scooter Chair 11/25/2020 12:00:00 AM EDT eCW1 ([facility]) meloxicam 7.5 MG Oral Tablet 11/25/2020 12:00:00 AM EDT eCW1 ([facility]) Scooter Chair 11/25/2020 12:00:00 AM EDT eCW1 ([facility]) meloxicam 7.5 MG Oral Tablet 11/25/2020 12:00:00 AM EDT eCW1 ([facility]) Scooter Chair 11/25/2020 12:00:00 AM EDT eCW1 ([facility]) Scooter Chair 11/25/2020 12:00:00 AM EDT eCW1 ([facility]) meloxicam 7.5 MG Oral Tablet 11/25/2020 12:00:00 AM EDT eCW1 ([facility]) Scooter Chair 11/25/2020 12:00:00 AM EDT eCW1 ([facility]) meloxicam 7.5 MG Oral Tablet 11/25/2020 12:00:00 AM EDT eCW1 ([facility]) atorvastatin 20 MG Oral Tablet 08/26/2020 12:00:00 AM EST eCW1 ([facility]) clopidogrel 75 MG Oral Tablet 08/26/2020 12:00:00 AM EST eCW1 ([facility]) Lisinopril 10 MG Oral Tablet 08/26/2020 12:00:00 AM EST eCW1 ([facility]) atorvastatin 20 MG Oral Tablet 08/26/2020 12:00:00 AM EST eCW1 ([facility]) clopidogrel 75 MG Oral Tablet 08/26/2020 12:00:00 AM EST eCW1 ([facility]) Aspirin 81 MG Delayed Release Oral Tablet 08/26/2020 12:00:00 AM ES T eCW1 ([facility]) Lisinopril 10 MG Oral Tablet 08/26/2020 12:00:00 AM EST eCW1 ([facility]) clopidogrel 75 MG Oral Tablet 08/26/2020 12:00:00 AM EST eCW1 ([facility]) Lisinopril 10 MG Oral Tablet 08/26/2020 12:00:00 AM EST eCW1 ([facility]) atorvastatin 20 MG Oral Tablet 08/26/2020 12:00:00 AM EST eCW1 ([facility]) clopidogrel 75 MG Oral Tablet 08/26/2020 12:00:00 AM EST eCW1 ([facility]) Lisinopril 10 MG Oral Tablet 08/26/2020 12:00:00 AM EST eCW1 ([facility]) atorvastatin 20 MG Oral Tablet 08/26/2020 12:00:00 AM EST eCW1 ([facility]) clopidogrel 75 MG Oral Tablet 08/26/2020 12:00:00 AM EST eCW1 ([facility]) Lisinopril 10 MG Oral Tablet 08/26/2020 12:00:00 AM EST eCW1 ([facility]) Estradiol 0.1 MG/ML Vaginal Cream 08/04/2020 12:00:00 AM EST eCW1 ([facility]) Estradiol 0.1 MG/ML Vaginal Cream 08/04/2020 12:00:00 AM EST eCW1 ([facility]) Clobetasol Propionate 0.0005 MG/MG Topical Ointment 07/29/20 20 12:00:00 AM EST eCW1 ([facility]) Clobetasol Propionate 0.0005 MG/MG Topical Ointment 07/29/20 20 12:00:00 AM EST eCW1 ([facility]) Clobetasol Propionate 0.0005 MG/MG Topical Ointment 07/29/20 20 12:00:00 AM EST eCW1 ([facility]) Clobetasol Propionate 0.0005 MG/MG Topical Ointment 07/29/20 20 12:00:00 AM EST eCW1 ([facility]) Clobetasol Propionate 0.0005 MG/MG Topical Ointment 07/29/20 20 12:00:00 AM EST eCW1 ([facility]) Estrogens, Conjugated (FCI) 0.625 MG/ML Vaginal Cream [Premarin] 07/25/2020 12:00:00 AM EST eCW1 ([facility]) Estrogens, Conjugated (FCI) 0.625 MG/ML Vaginal Cream [Premarin] 07/25/2020 12:00:00 AM EST eCW1 ([facility]) Estrogens, Conjugated (FCI) 0.625 MG/ML Vaginal Cream [Premarin] 07/25/2020 12:00:00 AM EST eCW1 ([facility]) Estrogens, Conjugated (FCI) 0.625 MG/ML Vaginal Cream [Premarin] 07/25/2020 12:00:00 AM EST eCW1 ([facility]) Estrogens, Conjugated (FCI) 0.625 MG/ML Vaginal Cream [Premarin] 07/25/2020 12:00:00 AM EST eCW1 ([facility])
[2021-06-22] MEDS ORDERED: CASIRIVIMAB/IMDEVIMAB 1,200 MG in NS 250 ML IV ONE (01:00)
[2021-06-22] MEDS: NS 1,000 ML IV SCH ×2 (02:30→18:02)
[2021-06-22 07:47] LABS: BASO % 0.1 % (0.0-1.0); EOS % 0.1 % (0.0-3.0); HEMATOCRIT 37.4 % (36.0-47.0); HEMOGLOBIN 12.2 g/dl (12.0-15.5); LYMPH # 0.6 10^3/uL (1.5-5.0); LYMPH % 7.4 % (24.0-44.0); MEAN CORPUSCULAR HEMOGLOBIN 27.5 pg (27.0-33.0); MEAN CORPUSCULAR HGB CONC 32.6 g/dl (32.0-36.5); MEAN CORPUSCULAR VOLUME 84.2 fl (80.0-96.0); MONO # 0.2 10^3/uL (0.0-0.8); MONO % 1.9 % (2.0-8.0); NEUTROPHILS # 7.2 10^3/uL (1.5-8.5); NEUTROPHILS % 90.1 % (36.0-66.0); PLATELET COUNT, AUTOMATED 225 10^3/uL (150-450); RED BLOOD COUNT 4.44 10^6/uL (4.00-5.40)
[2021-06-22 08:07] LABS: BLOOD UREA NITROGEN 12 MG/DL (7-18); CALCIUM LEVEL 8.8 MG/DL (8.8-10.2); CARBON DIOXIDE LEVEL 27 MEQ/L (21-32); CHLORIDE LEVEL 106 MEQ/L (98-107); GLOMERULAR FILTRATION RATE > 60.0 (>32); GLUCOSE, FASTING 101 MG/DL (70-100); POTASSIUM SERUM 4.1 MEQ/L (3.5-5.1); SODIUM LEVEL 138 MEQ/L (136-145)
[2021-06-22] MEDS ORDERED: CLOPIDOGREL 75 MG TAB PO SCH (09:00)
[2021-06-22] MEDS ORDERED: ASPIRIN 81MG ENTERIC TABLET PO SCH (09:00)
[2021-06-22] MEDS ORDERED: ATORVASTATIN 20 MG TAB PO SCH (09:00)
[2021-06-22] MEDS: LEVOTHYROXINE 75MCG TABLET (0.075MG) PO SCH (09:59)
[2021-06-23 04:00] VITALS: BP 122/80
[2021-06-23] MEDS: LEVOTHYROXINE 75MCG TABLET (0.075MG) PO SCH (05:07)
[2021-06-23 07:46] LABS: BASO % 0.1 % (0.0-1.0); EOS % 0.1 % (0.0-3.0); HEMATOCRIT 36.1 % (36.0-47.0); HEMOGLOBIN 11.9 g/dl (12.0-15.5); LYMPH # 1.6 10^3/uL (1.5-5.0); LYMPH % 18.8 % (24.0-44.0); MEAN CORPUSCULAR HEMOGLOBIN 27.7 pg (27.0-33.0); MEAN CORPUSCULAR VOLUME 84.1 fl (80.0-96.0); MONO # 0.9 10^3/uL (0.0-0.8); MONO % 10.2 % (2.0-8.0); NEUTROPHILS % 70.6 % (36.0-66.0); PLATELET COUNT, AUTOMATED 240 10^3/uL (150-450); RED BLOOD COUNT 4.29 10^6/uL (4.00-5.40); WHITE BLOOD COUNT 8.6 10^3/uL (4.0-10.0)
[2021-06-23 08:16] LABS: BLOOD UREA NITROGEN 18 MG/DL (7-18); CALCIUM LEVEL 8.9 MG/DL (8.8-10.2); CARBON DIOXIDE LEVEL 28 MEQ/L (21-32); CHLORIDE LEVEL 104 MEQ/L (98-107); CREATININE FOR GFR 0.87 MG/DL (0.55-1.30); GLOMERULAR FILTRATION RATE > 60.0 (>32); GLUCOSE, FASTING 83 MG/DL (70-100); POTASSIUM SERUM 3.5 MEQ/L (3.5-5.1); SODIUM LEVEL 138 MEQ/L (136-145)
[2021-06-23 12:00] VITALS: BP 125/75
--- NOTE | 2021-06-23 14:17 | IPNPDOC ---
Text Note Date of Service The patient was seen on 06/22/21. NOTE Subjective: Patient seen and examined at bedside. No acute overnight events reported. Patient voices no new medical complaints this morning. Objective: Vital Signs: reviewed General: NAD, lying comfortably in bed HEENT: NC/AT, EOMI Neck: supple, no masses Chest: lungs CTA B/L Heart: +S1S2, RRR Abd: soft, NT, ND, +BS Ext: no edema Skin: no rashes MSK: full ROM at large joints Neuro: no gross focal deficits Psych: AAOx3 A/P: 85F w h/o cva x 2, TIA, b/l social service liaison stenosis , on asa, plavix, lipitor, htn, dyslipidemia, hypothyroidism, presents w recurrent falls x 2 over the last 2 days w/o prodromal symptoms. found to be positive for covid, consented to monoclonal abs infusion and pt/ot eval. #recurrent falls in the setting of b/l social service liaison stenosis/cva x 2 -fall precautions, assisted ambulation. echo 08/2020 no valvular dz.EF 75%. -no fx on hip/pelvic xray/ct cspine or ich on ct head. -pt/ot #h/o b/l social service liaison stenosis /cva x 2 -continue asa, plavix, lipitor #htn -controlled on lisinopril #hypothyroidism -synthroid #dyslipidemia -on lipitor #covid positive -asx 100%room air -consented to monoclonal ab infusion disposition: dc in am if cleared by PT/OT. VS,Fishbone, I+O VS, Fishbone, I+O Laboratory Tests 06/23/21 07:12 Vital Signs Date Time Temp Pulse Resp B/P (MAP) Pulse Ox O2 Delivery O2 Flow Rate FiO2 06/23/21 04:00 97.8 69 18 122/80 (94) 95 Room Air I&O- Last 24 Hours up to 6 AM 06/23/21 06:00 Intake Total 1730 ml Output Total 200 ml Balance 1530 ml TOO GUILLAUME MD Jun 23, 2021 14:16
--- NOTE | 2021-06-23 16:59 | DS.PDOC ---
Discharge Summary General Date of Admission Jun 21, 2021 at 13:00 Date of Discharge 06/23/2021 Discharge Summary PROCEDURES PERFORMED DURING STAY: [None]. DISCHARGE DIAGNOSES: #recurrent falls in the setting of b/l color mixer stenosis/cva x 2 #h/o b/l color mixer stenosis /cva x 2 #htn #hypothyroidism #dyslipidemia #covid positive COMPLICATIONS/CHIEF COMPLAINT: Fall Hip Injury. HISTORY OF PRESENT ILLNESS: . HOSPITAL COURSE: 85F w h/o cva x 2, TIA, b/l color mixer stenosis , on asa, plavix, lipitor, htn, dyslipidemia, hypothyroidism, presents w recurrent falls x 2 over the last 2 days w/o prodromal symptoms. found to be positive for covid, consented to monoclonal abs infusion and pt/ot eval. #recurrent falls in the setting of b/l color mixer stenosis/cva x 2 -fall precautions, assisted ambulation. echo 08/2020 no valvular dz.EF 75%. -no fx on hip/pelvic xray/ct cspine or ich on ct head. -cleared by PT #h/o b/l color mixer stenosis /cva x 2 -continued asa, plavix, lipitor #htn -controlled on lisinopril #hypothyroidism -synthroid #dyslipidemia -on lipitor #covid positive -asx - 100%room air -consented to monoclonal ab infusion DISCHARGE MEDICATIONS: Please see below. ALLERGIES: Please see below. PHYSICAL EXAMINATION ON DISCHARGE: Vital Signs: reviewed and within normal limits General: NAD, sitting comfortably at edge of bed HEENT: NC/AT, EOMI Respiratory: Speaking in full sentences easily, no accessory muscle use Abd: Obese, nondistended Ext: no edema Skin: no rashes MSK: full ROM at large joints Neuro: no gross focal deficits Psych: AAOx3 LABORATORY DATA: Please see below. DISCHARGE INSTRUCTIONS: 1. PCP in 3-5 days DISCHARGE CONDITION: [Stable]. TIME SPENT ON DISCHARGE: 35 minutes. Vital Signs/I&Os Vital Signs Date Time Temp Pulse Resp B/P (MAP) Pulse Ox O2 Delivery O2 Flow Rate FiO2 06/23/21 12:00 97.5 75 18 125/75 (92) 95 Room Air I&O- Last 24 Hours up to 6 AM 06/23/21 06:00 Intake Total 1730 ml Output Total 200 ml Balance 1530 ml Laboratory Data Labs 24H Laboratory Tests 2 06/23/21 07:12: Immature Granulocyte % (Auto) 0.2, Neutrophils (%) (Auto) 70.6H, Lymphocytes (%) (Auto) 18.8L, Monocytes (%) (Auto) 10.2H, Eosinophils (%) (Auto) 0.1, Basophils (%) (Auto) 0.1, Neutrophils # (Auto) 6.0, Lymphocytes # (Auto) 1.6, Monocytes # (Auto) 0.9H, Eosinophils # (Auto) 0.0, Basophils # (Auto) 0.0, Nucleated Red Blood Cells % (auto) 0.0, Anion Gap 6L, Glomerular Filtration Rate > 60.0, Calcium Level 8.9 CBC/BMP Laboratory Tests 06/23/21 07:12 Microbiology Microbiology 06/21/21 Respiratory Virus Panel (PCR) ([facility]) - Final, Complete SARS-CoV-2 (COVID 19) Discharge Medications Scheduled Cholecalciferol (Vitamin D3) (Vitamin D3) 125 Mcg Capsule, 125 MCG PO DAILY, (Reported) Levothyroxine Sodium (Levothyroxine Sodium) 75 Mcg Tablet, 75 MCG PO QAM, (Reported) Allergies Coded Allergies: Penicillins (Verified Allergy, Severe, DIFFICULTY BREATHING, 08/24/20) shellfish derived (Verified Allergy, Severe, HIVES,DIFFICULTY BREATHING, 08/24/20) ciprofloxacin (Verified Adverse Reaction, Intermediate, ATAXIA, 08/24/20) codeine (Verified Adverse Reaction, Unknown, DISORIENTED, 08/24/20) tramadol (Verified Adverse Reaction, Unknown, N/V, 08/24/20) TOO GUILLAUME MD Jun 23, 2021 16:59
== END 2021-06-23 17:00 | disposition home health service (06) | DRG 67 ==
LOC: M ED 10:18 → EDBD 10:18 → M 4MAIN 13:00 → M PM&R 13:01 → ENRESERV 06-22 00:05
PROVIDERS: ADMIT General Practice; ATTEND Internal Medicine
DX: I66.23 Occlusion and stenosis of bilateral posterior cerebral arteries (principal); U07.1 COVID-19; R29.6 Repeated falls; Z86.73 Personal history of transient ischemic attack (TIA), and cerebral infarction without residual deficits; I10 Essential (primary) hypertension; E78.5 Hyperlipidemia, unspecified; E03.9 Hypothyroidism, unspecified; Z90.49 Acquired absence of other specified parts of digestive tract; Z90.79 Acquired absence of other genital organ(s); Z88.0 Allergy status to penicillin; Z88.5 Allergy status to narcotic agent; Z88.8 Allergy status to other drugs, medicaments and biological substances; Z91.013 Allergy to seafood; Z79.82 Long term (current) use of aspirin; Z79.01 Long term (current) use of anticoagulants; S70.01XA Contusion of right hip, initial encounter; W01.0XXA Fall on same level from slipping, tripping and stumbling without subsequent striking against object, initial encounter; Y92.009 Unspecified place in unspecified non-institutional (private) residence as the place of occurrence of the external cause; M25.78 Osteophyte, vertebrae; M47.892 Other spondylosis, cervical region

== ENCOUNTER → 2021-08-14 | Outpatient (REF) | payer MEDICARE ==
[~2021-08-14] MED LIST changes: +D3 U5000 PO
== END ==
LOC: M SFHCPLAZ 10:32
PROVIDERS: ATTEND Family Medicine
DX: E03.9 Hypothyroidism, unspecified (principal); E55.9 Vitamin D deficiency, unspecified; R29.6 Repeated falls; Z86.73 Personal history of transient ischemic attack (TIA), and cerebral infarction without residual deficits

== ENCOUNTER → 2021-08-14 | Outpatient (CLI) | payer MEDICARE ==
[2021-08-14 13:45] LABS: BASO # 0.1 10^3/uL (0.0-0.2); BASO % 0.9 % (0.0-1.0); EOS # 0.2 10^3/uL (0.0-0.5); EOS % 2.7 % (0.0-3.0); HEMOGLOBIN 12.5 g/dl (12.0-15.5); LYMPH # 1.9 10^3/uL (1.5-5.0); LYMPH % 23.6 % (24.0-44.0); MEAN CORPUSCULAR HEMOGLOBIN 27.1 pg (27.0-33.0); MEAN CORPUSCULAR HGB CONC 31.3 g/dl (32.0-36.5); MEAN CORPUSCULAR VOLUME 86.8 fl (80.0-96.0); MONO # 0.7 10^3/uL (0.0-0.8); NEUTROPHILS # 5.1 10^3/uL (1.5-8.5); NEUTROPHILS % 63.4 % (36.0-66.0); PLATELET COUNT, AUTOMATED 273 10^3/uL (150-450); RED BLOOD COUNT 4.61 10^6/uL (4.00-5.40)
[2021-08-14 14:11] LABS: CHOLESTEROL RISK RATIO 2.493 (<5); FREE T4 1.01 NG/DL (0.76-1.46); THYROID STIMULATING HORMONE 5.59 uIU/ML (0.358-3.740); TOTAL 25(OH) VITAMIN D 39.2 NG/ML (30.0-100.0)
== END ==
LOC: M PLALAB 10:43
PROVIDERS: ATTEND Student in an Organized Health Care Education/Training Program
DX: E03.9 Hypothyroidism, unspecified (principal); E55.9 Vitamin D deficiency, unspecified; R29.6 Repeated falls; Z86.73 Personal history of transient ischemic attack (TIA), and cerebral infarction without residual deficits

== ENCOUNTER 2021-12-17 15:30 | Observation (INO) | payer MEDICARE ==
[~2021-12-17] VITALS: Ht 165.1 cm; Wt 63.6 kg
[~2021-12-17 15:30] MED LIST changes: +AMLO25TA PO; +ATOR40TA75; +ATOR80TA59 PO; +BAYE325T12 PO; +SYNT75TA PO
[2021-12-17 17:06] LABS: BASO # 0.1 10^3/uL (0.0-0.2); BASO % 0.6 % (0.0-1.0); EOS # 0.2 10^3/uL (0.0-0.5); EOS % 2.4 % (0.0-3.0); HEMATOCRIT 32.7 % (36.0-47.0); HEMOGLOBIN 10.2 g/dl (12.0-15.5); LYMPH # 1.7 10^3/uL (1.5-5.0); LYMPH % 21.2 % (24.0-44.0); MEAN CORPUSCULAR HEMOGLOBIN 26.9 pg (27.0-33.0); MEAN CORPUSCULAR HGB CONC 31.2 g/dl (32.0-36.5); MEAN CORPUSCULAR VOLUME 86.3 fl (80.0-96.0); MONO # 0.7 10^3/uL (0.0-0.8); MONO % 8.4 % (2.0-8.0); NEUTROPHILS # 5.5 10^3/uL (1.5-8.5); PLATELET COUNT, AUTOMATED 221 10^3/uL (150-450); RED BLOOD COUNT 3.79 10^6/uL (4.00-5.40); WHITE BLOOD COUNT 8.2 10^3/uL (4.0-10.0)
[2021-12-17 17:37] LABS: ALBUMIN 3.1 GM/DL (3.2-5.2); BILIRUBIN,DIRECT 0.1 MG/DL (0.0-0.2); BILIRUBIN,TOTAL 0.3 MG/DL (0.2-1.0); FREE T4 1.04 NG/DL (0.76-1.46); RSV AMPLIFICATION NEGATIVE (NEGATIVE); THYROID STIMULATING HORMONE 8.19 uIU/ML (0.358-3.740); TOTAL PROTEIN 6.6 GM/DL (6.4-8.2)
[2021-12-17] MEDS ORDERED: ASPI81TA26 PO (18:16)
[2021-12-17 18:19] LABS: INR 0.99; PROTHROMBIN TIME 13.5 SECONDS (12.7-14.5)
[2021-12-17 18:20] LABS: PARTIAL THROMBOPLASTIN TIME 25.2 SECONDS (25.9-37.0)
[2021-12-17] MEDS ORDERED: HOME MED LIST COMPLETE! XX SCH (18:20)
[2021-12-17 18:32] LABS: CK-MB VALUE MASS 1.2 NG/ML (<3.6); MB/CK RELATIVE INDEX 1.33 (< OR =4)
[2021-12-17] MEDS ORDERED: ASPIRIN 81MG ENTERIC TABLET PO SCH (21:00)
[2021-12-17 21:15] VITALS: BP 175/105
[2021-12-17 21:17] VITALS: BP 170/110
[2021-12-17 21:20] VITALS: BP 171/99
[2021-12-17 22:55] VITALS: BP 146/86
[2021-12-17] MEDS: ACETAMINOPHEN TAB 650MG DOSE (2X325MG) PO SCH (23:15)
[2021-12-18] MEDS ORDERED: UNRESOLVED CLARIFICATION ENTRY XX SCH (00:01)
[2021-12-18] MEDS ORDERED: LEVOTHYROXINE 75MCG TABLET (0.075MG) PO SCH (06:00)
[2021-12-18 06:50] VITALS: BP 140/82
[2021-12-18] MEDS: ACETAMINOPHEN TAB 650MG DOSE (2X325MG) PO SCH (08:27)
[2021-12-18] MEDS ORDERED: ENOXAPARIN 40MG/0.4ML SYRINGE (J1650 PER 10MG) SC SCH (09:00)
[2021-12-18] MEDS ORDERED: ACET1TAB55 PO (09:20)
[2021-12-18 09:52] VITALS: BP_SYST 120; BP_SYST 146; BP_SYST 147; BP_DIAS 76; BP_DIAS 84; BP_DIAS 85
== END 2021-12-18 13:13 | disposition home or self-care (01) ==
LOC: M ED 15:30 → M ED INP 18:58 → ENRESERV 20:08 → M MSPAV 21:14
PROVIDERS: ADMIT Internal Medicine Nephrology; ATTEND Internal Medicine Nephrology
DX: I95.1 Orthostatic hypotension (principal); T07.XXXA Unspecified multiple injuries, initial encounter; W19.XXXA Unspecified fall, initial encounter; Y92.000 Kitchen of unspecified non-institutional (private) residence as the place of occurrence of the external cause; Y93.9 Activity, unspecified; Y99.9 Unspecified external cause status; R29.6 Repeated falls; Z86.73 Personal history of transient ischemic attack (TIA), and cerebral infarction without residual deficits; E03.9 Hypothyroidism, unspecified; E78.5 Hyperlipidemia, unspecified; I65.23 Occlusion and stenosis of bilateral carotid arteries; K57.92 Diverticulitis of intestine, part unspecified, without perforation or abscess without bleeding; K21.9 Gastro-esophageal reflux disease without esophagitis; Z79.82 Long term (current) use of aspirin; Z79.899 Other long term (current) drug therapy; Z88.0 Allergy status to penicillin; Z91.013 Allergy to seafood; Z88.5 Allergy status to narcotic agent; Z88.1 Allergy status to other antibiotic agents
CPT/HCPCS: 36415; 70450; 71045; 72125; 72170; 73060; 73090; 73130; 73552; 73590; 80047; 80076; 82550; 82553; 83690; 84439; 84443; 84484; 85025; 85610; 85730; 87631; 93005; 93041; 94760; 96372; 97161; 99285; G0378; J1650

== ENCOUNTER → 2022-01-10 | Outpatient (REF) | payer MEDICARE ==
[~2022-01-10] MED LIST changes: +ACET1TAB55 PO; +ASPI81TA26 PO
== END ==
LOC: M SFHCPLAZ 10:52
PROVIDERS: ATTEND Family Medicine
DX: E03.9 Hypothyroidism, unspecified (principal); I63.9 Cerebral infarction, unspecified

== ENCOUNTER 2022-01-13 17:15 | Inpatient (IN) | payer MEDICARE, SELFPAY ==
[~2022-01-13] VITALS: Ht 170.2 cm; Wt 66.5 kg
[2022-01-13] MEDS ORDERED: ONDANSETRON 4MG/2ML VIAL IV ONE (17:55)
[2022-01-13 18:18] LABS: BASO % 0.3 % (0.0-1.0); EOS % 0.1 % (0.0-3.0); HEMATOCRIT 35.5 % (36.0-47.0); HEMOGLOBIN 11.7 g/dl (12.0-15.5); LYMPH # 1.7 10^3/uL (1.5-5.0); MEAN CORPUSCULAR HEMOGLOBIN 27.8 pg (27.0-33.0); MEAN CORPUSCULAR VOLUME 84.3 fl (80.0-96.0); MONO # 0.7 10^3/uL (0.0-0.8); MONO % 7.1 % (2.0-8.0); NEUTROPHILS # 7.5 10^3/uL (1.5-8.5); NEUTROPHILS % 75.2 % (36.0-66.0); PLATELET COUNT, AUTOMATED 263 10^3/uL (150-450); RED BLOOD COUNT 4.21 10^6/uL (4.00-5.40)
[2022-01-13 18:50] LABS: BLOOD UREA NITROGEN 14 MG/DL (7-18); CALCIUM LEVEL 9.6 MG/DL (8.8-10.2); CARBON DIOXIDE LEVEL 26 MEQ/L (21-32); CHLORIDE LEVEL 105 MEQ/L (98-107); CREATININE FOR GFR 0.93 MG/DL (0.55-1.30); GLOMERULAR FILTRATION RATE > 60.0 (>32); GLUCOSE, FASTING 94 MG/DL (70-100); POTASSIUM SERUM 4.8 MEQ/L (3.5-5.1); SODIUM LEVEL 138 MEQ/L (136-145)
[2022-01-13 18:55] LABS: CK-MB VALUE MASS 1.5 NG/ML (<3.6); MB/CK RELATIVE INDEX 0.74 (< OR =4)
[2022-01-13] MEDS ORDERED: ISOVUE-370 76% 100ML VIAL As Ordered ONE (19:01)
[2022-01-13 19:51] LABS: INR 1.02; PARTIAL THROMBOPLASTIN TIME 25.9 SECONDS (25.9-37.0); PROTHROMBIN TIME 13.8 SECONDS (12.7-14.5)
[2022-01-13] MEDS ORDERED: ACETAMINOPHEN *IV* 1,000 MG in IV 1 EA IV ONE (21:45)
[2022-01-13] MEDS ORDERED: HOME MED LIST COMPLETE! XX SCH (22:10)
[2022-01-13] MEDS ORDERED: ATORVASTATIN 20 MG TAB PO ONE (23:25)
[2022-01-13] MEDS ORDERED: ASPIRIN 325 MG TAB PO ONE (23:25)
[2022-01-13] MEDS ORDERED: CLOPIDOGREL 75 MG TAB PO ONE (23:25)
[2022-01-14] VITALS (8 sets, daily range): BP systolic 134–160; BP diastolic 75–90
[2022-01-14] MEDS ORDERED: ACETAMINOPHEN TAB 650MG DOSE (2X325MG) PO PRN ×2 (00:05→16:40)
[2022-01-14 01:10] LABS: NT-PRO BNP 182 PG/ML (<450)
[2022-01-14] MEDS: LEVOTHYROXINE 75MCG TABLET (0.075MG) PO SCH ×2 (05:54→06:00)
[2022-01-14] MEDS: HEPARIN SOD (PORCINE) 5000UNITS/ML 1ML VIAL/SYRINGE SQ SCH ×3 (05:54→14:00)
[2022-01-14] MEDS ORDERED: ONDANSETRON 4MG/2ML VIAL IV PRN (09:20)
[2022-01-14] MEDS ORDERED: PROCHLORPERAZINE 25 MG SUPP PR PRN (11:00)
[2022-01-14 11:01] LABS: BASO % 0.4 % (0.0-1.0); EOS # 0.1 10^3/uL (0.0-0.5); EOS % 1.3 % (0.0-3.0); HEMATOCRIT 35.1 % (36.0-47.0); HEMOGLOBIN 11.4 g/dl (12.0-15.5); LYMPH % 12.8 % (24.0-44.0); MEAN CORPUSCULAR HGB CONC 32.5 g/dl (32.0-36.5); MEAN CORPUSCULAR VOLUME 83.2 fl (80.0-96.0); MONO # 0.5 10^3/uL (0.0-0.8); MONO % 6.8 % (2.0-8.0); NEUTROPHILS % 78.4 % (36.0-66.0); PLATELET COUNT, AUTOMATED 246 10^3/uL (150-450); RED BLOOD COUNT 4.22 10^6/uL (4.00-5.40); WHITE BLOOD COUNT 7.6 10^3/uL (4.0-10.0)
[2022-01-14 11:15] LABS: HEMOGLOBIN A1c 5.5 %
[2022-01-14 11:21] LABS: ERYTHROCYTE SEDIMENTATION RATE 27 mm/hr (0-30)
[2022-01-14 11:39] LABS: BLOOD UREA NITROGEN 12 MG/DL (7-18); C REACTIVE PROTEIN QUANTITATIV 0.93 MG/DL (0.00-0.30); CALCIUM LEVEL 9.1 MG/DL (8.8-10.2); CARBON DIOXIDE LEVEL 26 MEQ/L (21-32); CHLORIDE LEVEL 102 MEQ/L (98-107); CREATININE FOR GFR 0.92 MG/DL (0.55-1.30); FERRITIN 15 NG/ML (8-252); GLOMERULAR FILTRATION RATE > 60.0 (>32); GLUCOSE, FASTING 91 MG/DL (70-100); IRON (FE) 96 UG/DL (50-170); PERCENT SATURATION 25.2 % (13.2-45.0); SODIUM LEVEL 135 MEQ/L (136-145); THYROID STIMULATING HORMONE 0.953 uIU/ML (0.358-3.740); TOTAL IRON BINDING CAPACITY 381 UG/DL (250-450)
[2022-01-14] MEDS: CLOPIDOGREL 75 MG TAB PO SCH (11:56)
[2022-01-14] MEDS: TOPIRAMATE (TopAMAX) 25 MG TAB PO SCH (11:56)
[2022-01-14] MEDS ORDERED: LORazepam 2 MG/ML VIAL IV STA (13:19)
[2022-01-14] MEDS: ACETAMINOPHEN 650 MG SUPP PR PRN (18:37)
[2022-01-14] MEDS: ASPIRIN 81MG ENTERIC TABLET PO SCH (19:37)
[2022-01-14] MEDS: ATORVASTATIN 20 MG TAB PO SCH (19:37)
[2022-01-15] VITALS (7 sets, daily range): BP systolic 112–152; BP diastolic 67–87
[2022-01-15] MEDS: HEPARIN SOD (PORCINE) 5000UNITS/ML 1ML VIAL/SYRINGE SQ SCH ×4 (00:06→21:22)
[2022-01-15] MEDS: ACETAMINOPHEN 650 MG SUPP PR PRN ×2 (00:48→07:03)
[2022-01-15] MEDS: LEVOTHYROXINE 75MCG TABLET (0.075MG) PO SCH (06:47)
[2022-01-15] MEDS: TOPIRAMATE (TopAMAX) 25 MG TAB PO SCH (09:22)
[2022-01-15] MEDS: CLOPIDOGREL 75 MG TAB PO SCH (09:22)
[2022-01-15 11:18] LABS: VITAMIN B12 LEVEL 932 PG/ML
[2022-01-15 11:19] LABS: FOLATE 12.4 NG/ML
[2022-01-15] MEDS: ASPIRIN 81MG ENTERIC TABLET PO SCH (20:03)
[2022-01-15] MEDS: ATORVASTATIN 20 MG TAB PO SCH (20:03)
[2022-01-16 02:05] VITALS: BP 138/83
[2022-01-16 05:13] VITALS: BP 127/81
[2022-01-16] MEDS: HEPARIN SOD (PORCINE) 5000UNITS/ML 1ML VIAL/SYRINGE SQ SCH ×3 (05:18→20:57)
[2022-01-16] MEDS: LEVOTHYROXINE 75MCG TABLET (0.075MG) PO SCH (05:43)
[2022-01-16 05:49] VITALS: BP_SYST 130; BP_SYST 139; BP_DIAS 81; BP_DIAS 90; BP_DIAS 93
[2022-01-16] MEDS: TOPIRAMATE (TopAMAX) 25 MG TAB PO SCH (09:04)
[2022-01-16] MEDS: CLOPIDOGREL 75 MG TAB PO SCH (09:05)
[2022-01-16 10:00] VITALS: BP 136/70
[2022-01-16] MEDS: ASPIRIN 81MG ENTERIC TABLET PO SCH (20:56)
[2022-01-16] MEDS: ATORVASTATIN 20 MG TAB PO SCH (20:56)
[2022-01-17] MEDS: LEVOTHYROXINE 75MCG TABLET (0.075MG) PO SCH (05:49)
[2022-01-17] MEDS: HEPARIN SOD (PORCINE) 5000UNITS/ML 1ML VIAL/SYRINGE SQ SCH (05:49)
[2022-01-17 06:00] VITALS: BP 119/71
[2022-01-17] MEDS: CLOPIDOGREL 75 MG TAB PO SCH (09:19)
[2022-01-17] MEDS: TOPIRAMATE (TopAMAX) 25 MG TAB PO SCH (09:20)
[2022-01-17] MEDS ORDERED: TOPI50TA9 PO (09:59)
[2022-01-17] MEDS ORDERED: CLOP75TA2 PO (09:59)
[2022-01-17] MEDS ORDERED: ATOR1TAB21 PO (09:59)
[2022-01-17] MEDS ORDERED: ATOR40TA75 PO (10:01)
== END 2022-01-17 11:32 | disposition home health service (06) | DRG 69 ==
LOC: M ED 17:15 → M ED INP 23:21 → ENRESERV 01-14 00:54 → M MSPAV 01-14 02:00
PROVIDERS: ADMIT Family Medicine; ATTEND Family Medicine
DX: G45.9 Transient cerebral ischemic attack, unspecified (principal); I50.32 Chronic diastolic (congestive) heart failure; I11.0 Hypertensive heart disease with heart failure; E03.9 Hypothyroidism, unspecified; R82.6 Abnormal urine levels of substances chiefly nonmedicinal as to source; D64.9 Anemia, unspecified; R91.1 Solitary pulmonary nodule; Z79.899 Other long term (current) drug therapy; Z88.0 Allergy status to penicillin; Z91.013 Allergy to seafood; Z88.5 Allergy status to narcotic agent; K57.30 Diverticulosis of large intestine without perforation or abscess without bleeding; K21.9 Gastro-esophageal reflux disease without esophagitis; M19.90 Unspecified osteoarthritis, unspecified site; Z86.73 Personal history of transient ischemic attack (TIA), and cerebral infarction without residual deficits; Z98.41 Cataract extraction status, right eye; Z98.42 Cataract extraction status, left eye; Z87.891 Personal history of nicotine dependence

== ENCOUNTER 2023-03-18 16:32 | Emergency (ER) | payer MEDICARE ==
[~2023-03-18] VITALS: Ht 165.1 cm; Wt 57.0 kg
[~2023-03-18 16:32] MED LIST changes: +AMLO1TAB24 PO; -ASPI-584 PO; +ASPI325T62 PO; +ASPI81CH8 PO; +ATOR40TA75 PO; +FERR1TAB8 PO; +PANT40TA29 PO; +SYNT88TA2 PO; +TOPI-254 PO
[2023-03-18 21:37] VITALS: TEMP 97.7
[2023-03-18 23:41] LABS: BASO # 0.1 10^3/uL (0.0-0.2); BASO % 0.7 % (0.0-1.0); EOS # 0.8 10^3/uL (0.0-0.5); EOS % 11.1 % (0.0-3.0); HEMATOCRIT 33.2 % (36.0-47.0); HEMOGLOBIN 10.3 g/dl (12.0-15.5); LYMPH # 2.1 10^3/uL (1.5-5.0); LYMPH % 28.1 % (24.0-44.0); MEAN CORPUSCULAR VOLUME 77.4 fl (80.0-96.0); MONO # 0.6 10^3/uL (0.0-0.8); MONO % 8.8 % (2.0-8.0); NEUTROPHILS # 3.7 10^3/uL (1.5-8.5); PLATELET COUNT, AUTOMATED 212 10^3/uL (150-450); RED BLOOD COUNT 4.29 10^6/uL (4.00-5.40); WHITE BLOOD COUNT 7.3 10^3/uL (4.0-10.0)
[2023-03-19 00:01] LABS: BLOOD UREA NITROGEN 11 MG/DL (9-23); CARBON DIOXIDE LEVEL 27 MMOL/L (20-31); CHLORIDE LEVEL 105 MMOL/L (98-107); CREATININE FOR GFR 0.68 MG/DL (0.55-1.30); GLOMERULAR FILTRATION RATE > 60.0 (>32); GLUCOSE, FASTING 88 MG/DL (74-106); POTASSIUM SERUM 4.3 MMOL/L (3.5-5.1); SODIUM LEVEL 141 MMOL/L (136-145)
[2023-03-19 02:00] VITALS: BP 147/71; O2SAT 99
== END 2023-03-19 02:07 | disposition home or self-care (01) ==
LOC: M ED 16:32
DX: Z00.00 Encounter for general adult medical examination without abnormal findings (principal); E55.9 Vitamin D deficiency, unspecified; E78.5 Hyperlipidemia, unspecified; R29.6 Repeated falls; Z79.82 Long term (current) use of aspirin; Z79.899 Other long term (current) drug therapy; Z88.0 Allergy status to penicillin; Z88.1 Allergy status to other antibiotic agents; Z88.5 Allergy status to narcotic agent; Z91.013 Allergy to seafood

== ENCOUNTER 2023-03-27 12:42 | Observation (INO) | payer MEDICARE ==
[~2023-03-27] VITALS: Ht 170.2 cm; Wt 57.6 kg
[2023-03-27 15:02] LABS: BASO # 0.1 10^3/uL (0.0-0.2); BASO % 0.9 % (0.0-1.0); EOS # 0.7 10^3/uL (0.0-0.5); EOS % 9.7 % (0.0-3.0); HEMOGLOBIN 9.9 g/dl (12.0-15.5); LYMPH # 1.6 10^3/uL (1.5-5.0); LYMPH % 22.8 % (24.0-44.0); MEAN CORPUSCULAR HEMOGLOBIN 24.6 pg (27.0-33.0); MEAN CORPUSCULAR HGB CONC 30.9 g/dl (32.0-36.5); MEAN CORPUSCULAR VOLUME 79.4 fl (80.0-96.0); MONO # 0.6 10^3/uL (0.0-0.8); MONO % 8.2 % (2.0-8.0); NEUTROPHILS % 58.3 % (36.0-66.0); PLATELET COUNT, AUTOMATED 307 10^3/uL (150-450); RED BLOOD COUNT 4.03 10^6/uL (4.00-5.40); WHITE BLOOD COUNT 6.9 10^3/uL (4.0-10.0)
[2023-03-27 15:06] LABS: RSV AMPLIFICATION NEGATIVE (NEGATIVE)
[2023-03-27 15:26] LABS: ETHYL ALCOHOL (ETHANOL) < 0.003 % (0.000-0.010)
[2023-03-27 15:29] LABS: BLOOD UREA NITROGEN 11 MG/DL (9-23); CALCIUM LEVEL 9.5 MG/DL (8.3-10.6); CARBON DIOXIDE LEVEL 26 MMOL/L (20-31); CHLORIDE LEVEL 105 MMOL/L (98-107); CREATININE FOR GFR 0.88 MG/DL (0.55-1.30); GLOMERULAR FILTRATION RATE > 60.0 (>32); GLUCOSE, FASTING 83 MG/DL (74-106); MAGNESIUM LEVEL 2.2 MG/DL (1.8-2.4); POTASSIUM SERUM 4.5 MMOL/L (3.5-5.1); SODIUM LEVEL 139 MMOL/L (136-145)
[2023-03-27 17:45] LABS: PHENCYCLIDINE URINE NEGATIVE (NEGATIVE)
[2023-03-27 17:46] LABS: AMPHETAMINES LEVEL URINE NEGATIVE (NEGATIVE); BARBITURATES URINE NEGATIVE (NEGATIVE); CANNABINOIDS URINE NEGATIVE (NEGATIVE); COCAINE METABOLITE URINE NEGATIVE (NEGATIVE); METHADONE URINE NEGATIVE (NEGATIVE); OPIATES URINE NEGATIVE (NEGATIVE)
[2023-03-27 17:47] LABS: BENZODIAZEPINES URINE NEGATIVE (NEGATIVE)
[2023-03-27] MEDS ORDERED: ASPI325T49 PO (18:59)
[2023-03-27] MEDS ORDERED: ASPI-1 PO (18:59)
[2023-03-27] MEDS ORDERED: MED REC IN PROGRESS XX SCH (19:00)
[2023-03-27] MEDS ORDERED: MED REC COMMENT (19:09)
[2023-03-27] MEDS ORDERED: HOME MED LIST COMPLETE! XX SCH (19:10)
[2023-03-27 19:20] LABS: IRON (FE) 18 UG/DL (50-170); PERCENT SATURATION 5.1 % (13.2-45.0); TOTAL IRON BINDING CAPACITY 352 UG/DL (250-425)
[2023-03-27 19:23] LABS: FERRITIN 36.7 NG/ML (7.3-270.7); FOLATE 13.7 NG/ML (>5.4); VITAMIN B12 LEVEL 559 PG/ML (211-911)
[2023-03-27 20:58] VITALS: BP 121/70; TEMP 99; O2SAT 97
[2023-03-27] MEDS ORDERED: ISOVUE-370 76% 100ML VIAL As Ordered ONE (21:28)
[2023-03-28 06:00] VITALS: BP 90/60; TEMP 98.4; O2SAT 99
[2023-03-28 06:15] LABS: HEMATOCRIT 31.9 % (36.0-47.0); HEMOGLOBIN 9.9 g/dl (12.0-15.5); MEAN CORPUSCULAR HEMOGLOBIN 24.6 pg (27.0-33.0); MEAN CORPUSCULAR VOLUME 79.4 fl (80.0-96.0); PLATELET COUNT, AUTOMATED 328 10^3/uL (150-450); RED BLOOD COUNT 4.02 10^6/uL (4.00-5.40); WHITE BLOOD COUNT 9.2 10^3/uL (4.0-10.0)
[2023-03-28 06:19] VITALS: BP 90/64
[2023-03-28 06:42] LABS: BLOOD UREA NITROGEN 13 MG/DL (9-23); CALCIUM LEVEL 9.2 MG/DL (8.3-10.6); CARBON DIOXIDE LEVEL 27 MMOL/L (20-31); CHLORIDE LEVEL 105 MMOL/L (98-107); CREATININE FOR GFR 0.92 MG/DL (0.55-1.30); GLOMERULAR FILTRATION RATE > 60.0 (>32); GLUCOSE, FASTING 108 MG/DL (74-106); MAGNESIUM LEVEL 2.1 MG/DL (1.8-2.4); SODIUM LEVEL 139 MMOL/L (136-145)
[2023-03-28] MEDS ORDERED: ATOR40TA75 PO (07:48)
[2023-03-28] MEDS ORDERED: PANT40TA29 PO (07:48)
[2023-03-28] MEDS ORDERED: AMLO1TAB24 PO (07:48)
[2023-03-28] MEDS ORDERED: MED REC COMMENT (07:48)
[2023-03-28] MEDS ORDERED: LEVO88TA3 PO (07:48)
[2023-03-28] MEDS ORDERED: HOME MED LIST COMPLETE! XX SCH (07:50)
[2023-03-28 07:51] VITALS: BP 104/66
[2023-03-28] MEDS ORDERED: ASPI81TA26 PO (07:51)
[2023-03-28] MEDS: ATORVASTATIN 20 MG TAB PO SCH (12:37)
[2023-03-28] MEDS: LEVOTHYROXINE 88MCG TABLET (0.088 MG) PO SCH (12:37)
[2023-03-28] MEDS: ASPIRIN 81MG ENTERIC TABLET PO SCH (12:37)
[2023-03-28] MEDS: PANTOPRAZOLE 40MG TAB (PROTONIX) PO SCH (12:37)
[2023-03-28] MEDS: ENOXAPARIN 40MG/0.4ML SYRINGE (J1650 PER 10MG) SC SCH (12:38)
[2023-03-28 13:19] VITALS: BP_SYST 108; BP_SYST 114; BP_SYST 96; BP_DIAS 62; BP_DIAS 64; BP_DIAS 67
[2023-03-28 14:00] VITALS: BP 104/65; TEMP 98.8; O2SAT 99
[2023-03-28] MEDS ORDERED: NS 1,000 ML IV SCH (14:05)
[2023-03-28 20:00] VITALS: BP 106/65; TEMP 99.1; O2SAT 98
[2023-03-28] MEDS: DIMETHICONE 2% OINTMENT(VANICREAM) 70GM TUBE TOP SCH (21:37)
[2023-03-28] MEDS: TRIAMCINOLONE ACET 0.1% OINTMENT 15GM TOP SCH (21:37)
[2023-03-29 05:16] VITALS: BP_SYST 108; BP_SYST 110; BP_DIAS 66; BP_DIAS 71; TEMP 98.1; TEMP 99; O2SAT 94; O2SAT 99
[2023-03-29] MEDS: LEVOTHYROXINE 88MCG TABLET (0.088 MG) PO SCH (05:27)
[2023-03-29 09:29] VITALS: BP_SYST 101; BP_SYST 108; BP_DIAS 59; BP_DIAS 60; BP_DIAS 61
[2023-03-29] MEDS: ACETAMINOPHEN TAB 650MG DOSE (2X325MG) PO PRN (10:14)
[2023-03-29] MEDS: ATORVASTATIN 20 MG TAB PO SCH (10:14)
[2023-03-29] MEDS: ENOXAPARIN 40MG/0.4ML SYRINGE (J1650 PER 10MG) SC SCH (10:15)
[2023-03-29] MEDS: PANTOPRAZOLE 40MG TAB (PROTONIX) PO SCH (10:15)
[2023-03-29] MEDS: ASPIRIN 81MG ENTERIC TABLET PO SCH (10:15)
[2023-03-29] MEDS: DIMETHICONE 2% OINTMENT(VANICREAM) 70GM TUBE TOP SCH ×2 (10:16→21:47)
[2023-03-29] MEDS: TRIAMCINOLONE ACET 0.1% OINTMENT 15GM TOP SCH ×2 (10:16→21:47)
[2023-03-29 14:00] VITALS: BP 114/72; TEMP 97.2; O2SAT 97
[2023-03-29 20:40] VITALS: BP 140/70; TEMP 98.4; O2SAT 94
[2023-03-29] MEDS: MECLIZINE 12.5 MG TAB PO PRN (21:46)
[2023-03-30 05:10] VITALS: BP 121/76; TEMP 97.9; O2SAT 98
[2023-03-30] MEDS: LEVOTHYROXINE 88MCG TABLET (0.088 MG) PO SCH (05:56)
[2023-03-30] MEDS: TRIAMCINOLONE ACET 0.1% OINTMENT 15GM TOP SCH ×2 (08:37→21:00)
[2023-03-30] MEDS: DIMETHICONE 2% OINTMENT(VANICREAM) 70GM TUBE TOP SCH ×2 (08:37→21:00)
[2023-03-30] MEDS: ENOXAPARIN 40MG/0.4ML SYRINGE (J1650 PER 10MG) SC SCH (08:38)
[2023-03-30] MEDS: ASPIRIN 81MG ENTERIC TABLET PO SCH (08:38)
[2023-03-30] MEDS: PANTOPRAZOLE 40MG TAB (PROTONIX) PO SCH (08:38)
[2023-03-30] MEDS: ATORVASTATIN 20 MG TAB PO SCH (08:38)
[2023-03-30 14:00] VITALS: BP_SYST 125; BP_SYST 127; BP_SYST 128; BP_DIAS 67; BP_DIAS 70; BP_DIAS 71
[2023-03-30] MEDS: MECLIZINE 12.5 MG TAB PO PRN ×2 (14:04→21:07)
[2023-03-30 14:41] VITALS: BP 132/73; TEMP 98.1; O2SAT 96
[2023-03-30 20:04] VITALS: BP 155/83; TEMP 98.6; O2SAT 99
[2023-03-31] MEDS: LEVOTHYROXINE 88MCG TABLET (0.088 MG) PO SCH (05:22)
[2023-03-31 05:46] VITALS: BP 126/68; TEMP 97.3; O2SAT 96
[2023-03-31] MEDS: MECLIZINE 12.5 MG TAB PO PRN ×2 (08:00→19:52)
[2023-03-31] MEDS: PANTOPRAZOLE 40MG TAB (PROTONIX) PO SCH (08:00)
[2023-03-31] MEDS: ATORVASTATIN 20 MG TAB PO SCH (08:00)
[2023-03-31] MEDS: DIMETHICONE 2% OINTMENT(VANICREAM) 70GM TUBE TOP SCH ×2 (08:00→19:52)
[2023-03-31] MEDS: TRIAMCINOLONE ACET 0.1% OINTMENT 15GM TOP SCH ×2 (08:00→19:53)
[2023-03-31] MEDS: ASPIRIN 81MG ENTERIC TABLET PO SCH (08:00)
[2023-03-31] MEDS: ENOXAPARIN 40MG/0.4ML SYRINGE (J1650 PER 10MG) SC SCH (08:01)
[2023-03-31 14:00] VITALS: BP 116/63; TEMP 96.6; O2SAT 98
[2023-03-31 20:00] VITALS: BP 135/70; TEMP 98.1; O2SAT 98
[2023-04-01] MEDS: LEVOTHYROXINE 88MCG TABLET (0.088 MG) PO SCH (05:42)
[2023-04-01 06:00] VITALS: BP 133/69; TEMP 98.2; O2SAT 96
[2023-04-01] MEDS ORDERED: ONDANSETRON 4MG 2ML VIAL IV ONE (08:35)
[2023-04-01] MEDS: ASPIRIN 81MG ENTERIC TABLET PO SCH (08:56)
[2023-04-01] MEDS: ATORVASTATIN 20 MG TAB PO SCH (08:56)
[2023-04-01] MEDS: ENOXAPARIN 40MG/0.4ML SYRINGE (J1650 PER 10MG) SC SCH (08:56)
[2023-04-01] MEDS: PANTOPRAZOLE 40MG TAB (PROTONIX) PO SCH (08:56)
[2023-04-01] MEDS: TRIAMCINOLONE ACET 0.1% OINTMENT 15GM TOP SCH ×2 (08:57→20:14)
[2023-04-01] MEDS: DIMETHICONE 2% OINTMENT(VANICREAM) 70GM TUBE TOP SCH ×2 (08:57→20:15)
[2023-04-01] MEDS ORDERED: ONDANSETRON 4MG 2ML VIAL IV PRN (12:00)
[2023-04-01 14:00] VITALS: BP 134/77; TEMP 97.7; O2SAT 99
[2023-04-01 18:36] LABS: HEMATOCRIT 31.4 % (36.0-47.0); HEMOGLOBIN 9.6 g/dl (12.0-15.5); MEAN CORPUSCULAR HEMOGLOBIN 24.6 pg (27.0-33.0); MEAN CORPUSCULAR HGB CONC 30.6 g/dl (32.0-36.5); MEAN CORPUSCULAR VOLUME 80.3 fl (80.0-96.0); PLATELET COUNT, AUTOMATED 309 10^3/uL (150-450); RED BLOOD COUNT 3.91 10^6/uL (4.00-5.40); WHITE BLOOD COUNT 8.5 10^3/uL (4.0-10.0)
[2023-04-01 18:59] LABS: BLOOD UREA NITROGEN 14 MG/DL (9-23); CALCIUM LEVEL 9.1 MG/DL (8.3-10.6); CARBON DIOXIDE LEVEL 29 MMOL/L (20-31); CHLORIDE LEVEL 106 MMOL/L (98-107); CREATININE FOR GFR 0.89 MG/DL (0.55-1.30); GLOMERULAR FILTRATION RATE > 60.0 (>32); GLUCOSE, FASTING 115 MG/DL (74-106); POTASSIUM SERUM 4.2 MMOL/L (3.5-5.1); SODIUM LEVEL 142 MMOL/L (136-145)
[2023-04-01 20:00] VITALS: BP 130/74; TEMP 98.8; O2SAT 98
[2023-04-02 06:00] VITALS: BP 128/73; TEMP 98.1; O2SAT 97
[2023-04-02] MEDS: LEVOTHYROXINE 88MCG TABLET (0.088 MG) PO SCH (06:28)
[2023-04-02] MEDS: ENOXAPARIN 40MG/0.4ML SYRINGE (J1650 PER 10MG) SC SCH (09:00)
[2023-04-02] MEDS: ATORVASTATIN 20 MG TAB PO SCH (09:06)
[2023-04-02] MEDS: ASPIRIN 81MG ENTERIC TABLET PO SCH (09:06)
[2023-04-02] MEDS: PANTOPRAZOLE 40MG TAB (PROTONIX) PO SCH (09:06)
[2023-04-02] MEDS: TRIAMCINOLONE ACET 0.1% OINTMENT 15GM TOP SCH ×2 (09:06→20:02)
[2023-04-02] MEDS: DIMETHICONE 2% OINTMENT(VANICREAM) 70GM TUBE TOP SCH ×2 (09:07→20:02)
[2023-04-02] MEDS: ACETAMINOPHEN TAB 650MG DOSE (2X325MG) PO PRN (10:30)
[2023-04-02 14:00] VITALS: BP 126/71; TEMP 97; O2SAT 96
[2023-04-02 20:30] VITALS: BP 107/64; TEMP 98.8; O2SAT 98
[2023-04-03 05:16] VITALS: BP 110/64; TEMP 97.9; O2SAT 99
[2023-04-03] MEDS: LEVOTHYROXINE 88MCG TABLET (0.088 MG) PO SCH (06:18)
[2023-04-03] MEDS: PANTOPRAZOLE 40MG TAB (PROTONIX) PO SCH (08:23)
[2023-04-03] MEDS: ASPIRIN 81MG ENTERIC TABLET PO SCH (08:23)
[2023-04-03] MEDS: DIMETHICONE 2% OINTMENT(VANICREAM) 70GM TUBE TOP SCH ×2 (08:24→21:33)
[2023-04-03] MEDS: TRIAMCINOLONE ACET 0.1% OINTMENT 15GM TOP SCH ×2 (08:24→21:35)
[2023-04-03] MEDS: ATORVASTATIN 20 MG TAB PO SCH (08:24)
[2023-04-03] MEDS: ENOXAPARIN 40MG/0.4ML SYRINGE (J1650 PER 10MG) SC SCH ×2 (08:24→08:27)
[2023-04-04 05:24] VITALS: BP 103/45; TEMP 98.6; O2SAT 97
[2023-04-04] MEDS: LEVOTHYROXINE 88MCG TABLET (0.088 MG) PO SCH (05:27)
[2023-04-04] MEDS: ENOXAPARIN 40MG/0.4ML SYRINGE (J1650 PER 10MG) SC SCH (08:05)
[2023-04-04] MEDS: PANTOPRAZOLE 40MG TAB (PROTONIX) PO SCH (08:29)
[2023-04-04] MEDS: DIMETHICONE 2% OINTMENT(VANICREAM) 70GM TUBE TOP SCH ×2 (08:30→20:50)
[2023-04-04] MEDS: ASPIRIN 81MG ENTERIC TABLET PO SCH (08:30)
[2023-04-04] MEDS: ATORVASTATIN 20 MG TAB PO SCH (08:30)
[2023-04-04] MEDS: TRIAMCINOLONE ACET 0.1% OINTMENT 15GM TOP SCH ×2 (08:30→20:50)
[2023-04-04 18:05] LABS: HEMATOCRIT 28.6 % (36.0-47.0); MEAN CORPUSCULAR HEMOGLOBIN 25.1 pg (27.0-33.0); MEAN CORPUSCULAR HGB CONC 31.5 g/dl (32.0-36.5); MEAN CORPUSCULAR VOLUME 79.9 fl (80.0-96.0); PLATELET COUNT, AUTOMATED 282 10^3/uL (150-450); RED BLOOD COUNT 3.58 10^6/uL (4.00-5.40); WHITE BLOOD COUNT 7.2 10^3/uL (4.0-10.0)
[2023-04-04 18:27] LABS: BLOOD UREA NITROGEN 16 MG/DL (9-23); CALCIUM LEVEL 8.8 MG/DL (8.3-10.6); CARBON DIOXIDE LEVEL 29 MMOL/L (20-31); CHLORIDE LEVEL 105 MMOL/L (98-107); CREATININE FOR GFR 0.81 MG/DL (0.55-1.30); GLOMERULAR FILTRATION RATE > 60.0 (>32); GLUCOSE, FASTING 94 MG/DL (74-106); POTASSIUM SERUM 4.2 MMOL/L (3.5-5.1); SODIUM LEVEL 138 MMOL/L (136-145)
[2023-04-05 05:10] VITALS: BP 141/72; TEMP 98.4; O2SAT 96
[2023-04-05] MEDS: LEVOTHYROXINE 88MCG TABLET (0.088 MG) PO SCH (06:24)
[2023-04-05] MEDS: PANTOPRAZOLE 40MG TAB (PROTONIX) PO SCH (08:17)
[2023-04-05] MEDS: ATORVASTATIN 20 MG TAB PO SCH (08:17)
[2023-04-05] MEDS: ENOXAPARIN 40MG/0.4ML SYRINGE (J1650 PER 10MG) SC SCH (08:17)
[2023-04-05] MEDS: ASPIRIN 81MG ENTERIC TABLET PO SCH (08:17)
[2023-04-05] MEDS: DIMETHICONE 2% OINTMENT(VANICREAM) 70GM TUBE TOP SCH ×2 (08:18→20:01)
[2023-04-05] MEDS: TRIAMCINOLONE ACET 0.1% OINTMENT 15GM TOP SCH ×2 (08:18→20:01)
[2023-04-05] MEDS: ACETAMINOPHEN TAB 650MG DOSE (2X325MG) PO PRN (14:11)
[2023-04-06] MEDS: LEVOTHYROXINE 88MCG TABLET (0.088 MG) PO SCH (05:00)
[2023-04-06 05:10] VITALS: BP 128/69; TEMP 98.4; O2SAT 95
[2023-04-06] MEDS: ENOXAPARIN 40MG/0.4ML SYRINGE (J1650 PER 10MG) SC SCH ×2 (09:00→10:04)
[2023-04-06] MEDS: ATORVASTATIN 20 MG TAB PO SCH (10:04)
[2023-04-06] MEDS: PANTOPRAZOLE 40MG TAB (PROTONIX) PO SCH (10:04)
[2023-04-06] MEDS: ASPIRIN 81MG ENTERIC TABLET PO SCH (10:04)
[2023-04-06] MEDS: TRIAMCINOLONE ACET 0.1% OINTMENT 15GM TOP SCH ×2 (10:04→19:52)
[2023-04-06] MEDS: DIMETHICONE 2% OINTMENT(VANICREAM) 70GM TUBE TOP SCH ×2 (10:05→19:52)
[2023-04-06] MEDS: MECLIZINE 12.5 MG TAB PO PRN (13:15)
[2023-04-07] MEDS: LEVOTHYROXINE 88MCG TABLET (0.088 MG) PO SCH (05:40)
[2023-04-07 06:06] VITALS: BP 128/70; TEMP 97.9; O2SAT 94
[2023-04-07] MEDS: ENOXAPARIN 40MG/0.4ML SYRINGE (J1650 PER 10MG) SC SCH (09:00)
[2023-04-07] MEDS: ATORVASTATIN 20 MG TAB PO SCH (09:08)
[2023-04-07] MEDS: ASPIRIN 81MG ENTERIC TABLET PO SCH (09:08)
[2023-04-07] MEDS: DIMETHICONE 2% OINTMENT(VANICREAM) 70GM TUBE TOP SCH ×2 (09:08→19:47)
[2023-04-07] MEDS: TRIAMCINOLONE ACET 0.1% OINTMENT 15GM TOP SCH ×2 (09:08→19:47)
[2023-04-07] MEDS: PANTOPRAZOLE 40MG TAB (PROTONIX) PO SCH (09:08)
[2023-04-07] MEDS: MECLIZINE 12.5 MG TAB PO PRN (09:08)
[2023-04-08 04:24] VITALS: BP 130/62; TEMP 97; O2SAT 96
[2023-04-08] MEDS: LEVOTHYROXINE 88MCG TABLET (0.088 MG) PO SCH (04:30)
[2023-04-08] MEDS: PANTOPRAZOLE 40MG TAB (PROTONIX) PO SCH (10:00)
[2023-04-08] MEDS: ASPIRIN 81MG ENTERIC TABLET PO SCH (10:00)
[2023-04-08] MEDS: ATORVASTATIN 20 MG TAB PO SCH (10:00)
[2023-04-08] MEDS: DIMETHICONE 2% OINTMENT(VANICREAM) 70GM TUBE TOP SCH ×2 (10:01→20:15)
[2023-04-08] MEDS: TRIAMCINOLONE ACET 0.1% OINTMENT 15GM TOP SCH ×2 (10:01→20:15)
[2023-04-08] MEDS: ENOXAPARIN 40MG/0.4ML SYRINGE (J1650 PER 10MG) SC SCH (10:01)
[2023-04-08 17:25] LABS: HEMATOCRIT 29.1 % (36.0-47.0); HEMOGLOBIN 9.1 g/dl (12.0-15.5); MEAN CORPUSCULAR HEMOGLOBIN 24.8 pg (27.0-33.0); MEAN CORPUSCULAR HGB CONC 31.3 g/dl (32.0-36.5); MEAN CORPUSCULAR VOLUME 79.3 fl (80.0-96.0); PLATELET COUNT, AUTOMATED 325 10^3/uL (150-450); RED BLOOD COUNT 3.67 10^6/uL (4.00-5.40); WHITE BLOOD COUNT 8.5 10^3/uL (4.0-10.0)
[2023-04-08 17:49] LABS: BLOOD UREA NITROGEN 20 MG/DL (9-23); CALCIUM LEVEL 8.8 MG/DL (8.3-10.6); CARBON DIOXIDE LEVEL 28 MMOL/L (20-31); CHLORIDE LEVEL 105 MMOL/L (98-107); CREATININE FOR GFR 0.85 MG/DL (0.55-1.30); GLOMERULAR FILTRATION RATE > 60.0 (>32); GLUCOSE, FASTING 88 MG/DL (74-106); POTASSIUM SERUM 4.4 MMOL/L (3.5-5.1); SODIUM LEVEL 138 MMOL/L (136-145)
[2023-04-09 05:36] VITALS: BP 141/84; TEMP 97.9; O2SAT 96
[2023-04-09] MEDS: LEVOTHYROXINE 88MCG TABLET (0.088 MG) PO SCH (05:43)
[2023-04-09] MEDS: ASPIRIN 81MG ENTERIC TABLET PO SCH (08:56)
[2023-04-09] MEDS: PANTOPRAZOLE 40MG TAB (PROTONIX) PO SCH (08:56)
[2023-04-09] MEDS: ATORVASTATIN 20 MG TAB PO SCH (08:56)
[2023-04-09] MEDS: DIMETHICONE 2% OINTMENT(VANICREAM) 70GM TUBE TOP SCH ×2 (08:57→20:20)
[2023-04-09] MEDS: ENOXAPARIN 40MG/0.4ML SYRINGE (J1650 PER 10MG) SC SCH (08:57)
[2023-04-09] MEDS: TRIAMCINOLONE ACET 0.1% OINTMENT 15GM TOP SCH ×2 (08:57→20:20)
[2023-04-09] MEDS ORDERED: ONDANSETRON 4MG TAB PO PRN (19:05)
[2023-04-09 20:12] VITALS: BP 156/85; TEMP 97.5; O2SAT 95
[2023-04-09] MEDS ORDERED: PROMETHAZINE 25 MG TAB PO ONE (20:15)
[2023-04-09] MEDS ORDERED: ONDANSETRON 4MG 2ML VIAL IV ONE (21:05)
[2023-04-09] MEDS ORDERED: NS 500 ML IV ONE (21:05)
[2023-04-09] MEDS ORDERED: KETOROLAC 30 MG/ML 1ML VIAL IV ONE (21:05)
[2023-04-09] MEDS ORDERED: diphenhydrAMINE 50MG/ML VIAL IV ONE (21:05)
[2023-04-09 21:46] LABS: BASO % 0.2 % (0.0-1.0); EOS # 0.7 10^3/uL (0.0-0.5); EOS % 4.5 % (0.0-3.0); HEMOGLOBIN 9.3 g/dl (12.0-15.5); LYMPH # 1.4 10^3/uL (1.5-5.0); LYMPH % 8.8 % (24.0-44.0); MEAN CORPUSCULAR HEMOGLOBIN 24.8 pg (27.0-33.0); MEAN CORPUSCULAR HGB CONC 32.1 g/dl (32.0-36.5); MEAN CORPUSCULAR VOLUME 77.3 fl (80.0-96.0); MONO % 6.3 % (2.0-8.0); NEUTROPHILS # 12.6 10^3/uL (1.5-8.5); NEUTROPHILS % 79.8 % (36.0-66.0); PLATELET COUNT, AUTOMATED 328 10^3/uL (150-450); RED BLOOD COUNT 3.75 10^6/uL (4.00-5.40); WHITE BLOOD COUNT 15.8 10^3/uL (4.0-10.0)
[2023-04-09 22:00] LABS: LIPASE 66 U/L (12-53)
[2023-04-09 22:02] LABS: ALBUMIN 2.9 G/DL (3.2-5.2); ALKALINE PHOSPHATASE 95 U/L (46-116); ALT/SGPT 16 U/L (7.0-40); AST/SGOT 18 U/L (<34); BILIRUBIN,TOTAL 0.4 MG/DL (0.3-1.2); BLOOD UREA NITROGEN 21 MG/DL (9-23); CALCIUM LEVEL 9.1 MG/DL (8.3-10.6); CARBON DIOXIDE LEVEL 25 MMOL/L (20-31); CHLORIDE LEVEL 103 MMOL/L (98-107); CREATININE FOR GFR 0.78 MG/DL (0.55-1.30); GLOMERULAR FILTRATION RATE > 60.0 (>32); GLUCOSE, FASTING 108 MG/DL (74-106); SODIUM LEVEL 138 MMOL/L (136-145); TOTAL PROTEIN 6.5 G/DL (5.7-8.2)
[2023-04-09] MEDS ORDERED: ISOVUE-370 76% 100ML VIAL As Ordered ONE (23:01)
[2023-04-10] VITALS: BP 140/80; TEMP 98.2; O2SAT 97
[2023-04-10 05:39] VITALS: BP 117/66; TEMP 97.9; O2SAT 97
[2023-04-10] MEDS: LEVOTHYROXINE 88MCG TABLET (0.088 MG) PO SCH (06:26)
[2023-04-10] MEDS ORDERED: SENNA 8.6 MG TAB (SENOKOT) PO PRN (07:50)
[2023-04-10 08:06] LABS: APPEARANCE, URINE CLEAR (CLEAR); BACTERIA, URINE AUTO NEGATIVE (NEGATIVE); BILIRUBIN, URINE AUTO NEGATIVE (NEGATIVE); BLOOD, URINE BLOOD NEGATIVE (NEGATIVE); COLOR, URINE YELLOW (YELLOW); GLUCOSE, URINE (UA) AUTO NEGATIVE (NEGATIVE); KETONE, URINE AUTO NEGATIVE (NEGATIVE); LEUKOCYTE ESTERASE, URINE AUTO TRACE (NEGATIVE); NITRITE, URINE AUTO NEGATIVE (NEGATIVE); PROTEIN, URINE AUTO NEGATIVE (NEGATIVE); RBC, URINE AUTO 0 /HPF (0-3); SPECIFIC GRAVITY URINE AUTO 1.057 (1.002-1.035); SQUAMOUS EPITHELIAL CELL UR AU 3 /HPF (0-6); UROBILINOGEN, URINE AUTO 0.2 mg/dL (0.0-2.0); WBC, URINE AUTO 5 /HPF (0-3)
[2023-04-10] MEDS: METAMUCIL (PSYLLIUM) PACKET PO SCH ×3 (08:08→20:52)
[2023-04-10] MEDS: ENOXAPARIN 40MG/0.4ML SYRINGE (J1650 PER 10MG) SC SCH (08:08)
[2023-04-10] MEDS: MIRALAX *UNIT DOSE* 17GM PACKET PO SCH ×3 (08:09→20:52)
[2023-04-10] MEDS: PANTOPRAZOLE 40MG TAB (PROTONIX) PO SCH (08:09)
[2023-04-10] MEDS: ASPIRIN 81MG ENTERIC TABLET PO SCH (08:09)
[2023-04-10] MEDS: ATORVASTATIN 20 MG TAB PO SCH (08:09)
[2023-04-10] MEDS: TRIAMCINOLONE ACET 0.1% OINTMENT 15GM TOP SCH (08:10)
[2023-04-10] MEDS: DIMETHICONE 2% OINTMENT(VANICREAM) 70GM TUBE TOP SCH (08:10)
[2023-04-10] MEDS: LevoFLOXacin 750 MG TABLET PO SCH (08:12)
[2023-04-10] MEDS ORDERED: ONDANSETRON 4MG ORAL DISINTEGRATING TAB PO PRN (08:45)
[2023-04-10] MEDS ORDERED: MIRALAX *UNIT DOSE* 17GM PACKET PO SCH (09:00)
[2023-04-10] MEDS: ACETAMINOPHEN TAB 650MG DOSE (2X325MG) PO PRN ×2 (11:55→18:08)
[2023-04-10] MEDS: MECLIZINE 12.5 MG TAB PO PRN (12:34)
[2023-04-10] MEDS ORDERED: FIORICET TAB PO ONE (13:30)
[2023-04-11] MEDS: LEVOTHYROXINE 88MCG TABLET (0.088 MG) PO SCH (05:38)
[2023-04-11 06:00] VITALS: BP 128/68; TEMP 97.9; O2SAT 96
[2023-04-11 08:45] LABS: HEMATOCRIT 28.6 % (36.0-47.0); MEAN CORPUSCULAR HEMOGLOBIN 24.7 pg (27.0-33.0); MEAN CORPUSCULAR HGB CONC 31.5 g/dl (32.0-36.5); MEAN CORPUSCULAR VOLUME 78.6 fl (80.0-96.0); PLATELET COUNT, AUTOMATED 301 10^3/uL (150-450); RED BLOOD COUNT 3.64 10^6/uL (4.00-5.40); WHITE BLOOD COUNT 5.7 10^3/uL (4.0-10.0)
[2023-04-11] MEDS: ENOXAPARIN 40MG/0.4ML SYRINGE (J1650 PER 10MG) SC SCH (09:08)
[2023-04-11] MEDS: METAMUCIL (PSYLLIUM) PACKET PO SCH ×3 (09:08→20:14)
[2023-04-11] MEDS: ATORVASTATIN 20 MG TAB PO SCH (09:08)
[2023-04-11] MEDS: ASPIRIN 81MG ENTERIC TABLET PO SCH (09:08)
[2023-04-11] MEDS: MIRALAX *UNIT DOSE* 17GM PACKET PO SCH ×3 (09:08→20:14)
[2023-04-11] MEDS: PANTOPRAZOLE 40MG TAB (PROTONIX) PO SCH (09:08)
[2023-04-11 18:13] LABS: HEMATOCRIT 29.3 % (36.0-47.0); HEMOGLOBIN 9.1 g/dl (12.0-15.5); MEAN CORPUSCULAR HEMOGLOBIN 24.5 pg (27.0-33.0); MEAN CORPUSCULAR HGB CONC 31.1 g/dl (32.0-36.5); PLATELET COUNT, AUTOMATED 307 10^3/uL (150-450); RED BLOOD COUNT 3.71 10^6/uL (4.00-5.40); WHITE BLOOD COUNT 7.7 10^3/uL (4.0-10.0)
[2023-04-11 18:23] LABS: BLOOD UREA NITROGEN 16 MG/DL (9-23); CARBON DIOXIDE LEVEL 27 MMOL/L (20-31); CHLORIDE LEVEL 102 MMOL/L (98-107); CREATININE FOR GFR 0.81 MG/DL (0.55-1.30); GLOMERULAR FILTRATION RATE > 60.0 (>32); GLUCOSE, FASTING 104 MG/DL (74-106); POTASSIUM SERUM 4.3 MMOL/L (3.5-5.1); SODIUM LEVEL 137 MMOL/L (136-145)
[2023-04-12 06:00] VITALS: BP 141/67; TEMP 98.6; O2SAT 97
[2023-04-12] MEDS: LevoFLOXacin 750 MG TABLET PO SCH (06:17)
[2023-04-12] MEDS: LEVOTHYROXINE 88MCG TABLET (0.088 MG) PO SCH (06:18)
[2023-04-12] MEDS: MIRALAX *UNIT DOSE* 17GM PACKET PO SCH ×3 (09:07→20:18)
[2023-04-12] MEDS: ASPIRIN 81MG ENTERIC TABLET PO SCH (09:07)
[2023-04-12] MEDS: METAMUCIL (PSYLLIUM) PACKET PO SCH ×3 (09:07→20:17)
[2023-04-12] MEDS: ATORVASTATIN 20 MG TAB PO SCH (09:07)
[2023-04-12] MEDS: PANTOPRAZOLE 40MG TAB (PROTONIX) PO SCH (09:07)
[2023-04-12] MEDS: ENOXAPARIN 40MG/0.4ML SYRINGE (J1650 PER 10MG) SC SCH (09:08)
[2023-04-13 05:10] VITALS: BP 128/71; TEMP 97.9; O2SAT 95
[2023-04-13] MEDS: LEVOTHYROXINE 88MCG TABLET (0.088 MG) PO SCH (05:49)
[2023-04-13] MEDS: ATORVASTATIN 20 MG TAB PO SCH (09:45)
[2023-04-13] MEDS: METAMUCIL (PSYLLIUM) PACKET PO SCH ×3 (09:45→20:25)
[2023-04-13] MEDS: ASPIRIN 81MG ENTERIC TABLET PO SCH (09:45)
[2023-04-13] MEDS: PANTOPRAZOLE 40MG TAB (PROTONIX) PO SCH (09:45)
[2023-04-13] MEDS: ENOXAPARIN 40MG/0.4ML SYRINGE (J1650 PER 10MG) SC SCH (09:47)
[2023-04-13] MEDS: MIRALAX *UNIT DOSE* 17GM PACKET PO SCH ×3 (09:48→20:25)
[2023-04-14 05:52] VITALS: BP 124/59; TEMP 97.2; O2SAT 96
[2023-04-14] MEDS: LevoFLOXacin 750 MG TABLET PO SCH (05:55)
[2023-04-14] MEDS: LEVOTHYROXINE 88MCG TABLET (0.088 MG) PO SCH (05:55)
[2023-04-14] MEDS: MIRALAX *UNIT DOSE* 17GM PACKET PO SCH ×3 (09:00→20:12)
[2023-04-14] MEDS: METAMUCIL (PSYLLIUM) PACKET PO SCH ×3 (09:00→20:12)
[2023-04-14] MEDS: ENOXAPARIN 40MG/0.4ML SYRINGE (J1650 PER 10MG) SC SCH (09:00)
[2023-04-14] MEDS: ATORVASTATIN 20 MG TAB PO SCH (09:09)
[2023-04-14] MEDS: PANTOPRAZOLE 40MG TAB (PROTONIX) PO SCH (09:09)
[2023-04-14] MEDS: ASPIRIN 81MG ENTERIC TABLET PO SCH (09:09)
[2023-04-15 06:00] VITALS: BP 121/63; TEMP 98.1; O2SAT 95
[2023-04-15] MEDS: LEVOTHYROXINE 88MCG TABLET (0.088 MG) PO SCH (06:10)
[2023-04-15] MEDS: METAMUCIL (PSYLLIUM) PACKET PO SCH ×3 (07:58→21:00)
[2023-04-15] MEDS: MIRALAX *UNIT DOSE* 17GM PACKET PO SCH ×3 (07:59→21:00)
[2023-04-15] MEDS: ATORVASTATIN 20 MG TAB PO SCH (08:08)
[2023-04-15] MEDS: PANTOPRAZOLE 40MG TAB (PROTONIX) PO SCH (08:08)
[2023-04-15] MEDS: ASPIRIN 81MG ENTERIC TABLET PO SCH (08:08)
[2023-04-15] MEDS: ENOXAPARIN 40MG/0.4ML SYRINGE (J1650 PER 10MG) SC SCH (08:08)
[2023-04-15 17:52] LABS: HEMATOCRIT 30.6 % (36.0-47.0); HEMOGLOBIN 9.4 g/dl (12.0-15.5); MEAN CORPUSCULAR HEMOGLOBIN 24.2 pg (27.0-33.0); MEAN CORPUSCULAR HGB CONC 30.7 g/dl (32.0-36.5); MEAN CORPUSCULAR VOLUME 78.7 fl (80.0-96.0); PLATELET COUNT, AUTOMATED 334 10^3/uL (150-450); RED BLOOD COUNT 3.89 10^6/uL (4.00-5.40); WHITE BLOOD COUNT 8.7 10^3/uL (4.0-10.0)
[2023-04-15 18:15] LABS: BLOOD UREA NITROGEN 14 MG/DL (9-23); CALCIUM LEVEL 8.8 MG/DL (8.3-10.6); CARBON DIOXIDE LEVEL 25 MMOL/L (20-31); CHLORIDE LEVEL 105 MMOL/L (98-107); CREATININE FOR GFR 0.78 MG/DL (0.55-1.30); GLOMERULAR FILTRATION RATE > 60.0 (>32); GLUCOSE, FASTING 92 MG/DL (74-106); POTASSIUM SERUM 4.9 MMOL/L (3.5-5.1); SODIUM LEVEL 136 MMOL/L (136-145)
[2023-04-15 22:45] VITALS: BP 121/68; TEMP 98.8; O2SAT 96
[2023-04-16 06:00] VITALS: BP 135/77; TEMP 98.1; O2SAT 97
[2023-04-16] MEDS: LEVOTHYROXINE 88MCG TABLET (0.088 MG) PO SCH (06:14)
[2023-04-16] MEDS: MIRALAX *UNIT DOSE* 17GM PACKET PO SCH ×4 (07:57→19:28)
[2023-04-16] MEDS: METAMUCIL (PSYLLIUM) PACKET PO SCH ×4 (07:57→19:28)
[2023-04-16] MEDS: ENOXAPARIN 40MG/0.4ML SYRINGE (J1650 PER 10MG) SC SCH ×2 (07:58→08:06)
[2023-04-16] MEDS: ATORVASTATIN 20 MG TAB PO SCH (07:58)
[2023-04-16] MEDS: PANTOPRAZOLE 40MG TAB (PROTONIX) PO SCH (07:58)
[2023-04-16] MEDS: ASPIRIN 81MG ENTERIC TABLET PO SCH (07:58)
[2023-04-17] MEDS: LEVOTHYROXINE 88MCG TABLET (0.088 MG) PO SCH (05:17)
[2023-04-17 06:36] VITALS: BP 139/74; TEMP 99; O2SAT 97
[2023-04-17] MEDS: ENOXAPARIN 40MG/0.4ML SYRINGE (J1650 PER 10MG) SC SCH (08:03)
[2023-04-17] MEDS: ATORVASTATIN 20 MG TAB PO SCH (08:03)
[2023-04-17] MEDS: PANTOPRAZOLE 40MG TAB (PROTONIX) PO SCH (08:03)
[2023-04-17] MEDS: ASPIRIN 81MG ENTERIC TABLET PO SCH (08:03)
[2023-04-17] MEDS: MIRALAX *UNIT DOSE* 17GM PACKET PO SCH ×3 (08:03→19:14)
[2023-04-17] MEDS: METAMUCIL (PSYLLIUM) PACKET PO SCH ×3 (08:03→19:14)
[2023-04-17] MEDS: ACETAMINOPHEN TAB 650MG DOSE (2X325MG) PO PRN (19:14)
[2023-04-18] MEDS: LEVOTHYROXINE 88MCG TABLET (0.088 MG) PO SCH (05:49)
[2023-04-18 05:53] VITALS: BP 139/75; TEMP 97.7; O2SAT 96
[2023-04-18] MEDS: MIRALAX *UNIT DOSE* 17GM PACKET PO SCH ×3 (09:00→19:55)
[2023-04-18] MEDS: METAMUCIL (PSYLLIUM) PACKET PO SCH ×3 (09:00→19:55)
[2023-04-18] MEDS: ENOXAPARIN 40MG/0.4ML SYRINGE (J1650 PER 10MG) SC SCH (09:00)
[2023-04-18] MEDS: ATORVASTATIN 20 MG TAB PO SCH (09:20)
[2023-04-18] MEDS: PANTOPRAZOLE 40MG TAB (PROTONIX) PO SCH (09:20)
[2023-04-18] MEDS: ASPIRIN 81MG ENTERIC TABLET PO SCH (09:20)
[2023-04-18 18:08] LABS: HEMATOCRIT 29.9 % (36.0-47.0); HEMOGLOBIN 9.3 g/dl (12.0-15.5); MEAN CORPUSCULAR HEMOGLOBIN 24.5 pg (27.0-33.0); MEAN CORPUSCULAR HGB CONC 31.1 g/dl (32.0-36.5); MEAN CORPUSCULAR VOLUME 78.7 fl (80.0-96.0); PLATELET COUNT, AUTOMATED 314 10^3/uL (150-450); WHITE BLOOD COUNT 10.7 10^3/uL (4.0-10.0)
[2023-04-18 18:23] LABS: BLOOD UREA NITROGEN 16 MG/DL (9-23); CALCIUM LEVEL 9.1 MG/DL (8.3-10.6); CARBON DIOXIDE LEVEL 30 MMOL/L (20-31); CHLORIDE LEVEL 102 MMOL/L (98-107); CREATININE FOR GFR 0.77 MG/DL (0.55-1.30); GLOMERULAR FILTRATION RATE > 60.0 (>32); GLUCOSE, FASTING 91 MG/DL (74-106); POTASSIUM SERUM 4.2 MMOL/L (3.5-5.1); SODIUM LEVEL 136 MMOL/L (136-145)
[2023-04-18] MEDS: CEPACOL LOZENGE PO PRN ×2 (18:48→19:50)
[2023-04-19] MEDS: LEVOTHYROXINE 88MCG TABLET (0.088 MG) PO SCH (05:32)
[2023-04-19 05:48] VITALS: BP 116/64; TEMP 99.5; O2SAT 96
[2023-04-19] MEDS: MIRALAX *UNIT DOSE* 17GM PACKET PO SCH ×4 (08:40→21:00)
[2023-04-19] MEDS: METAMUCIL (PSYLLIUM) PACKET PO SCH ×4 (08:40→21:00)
[2023-04-19] MEDS: PANTOPRAZOLE 40MG TAB (PROTONIX) PO SCH (08:41)
[2023-04-19] MEDS: ASPIRIN 81MG ENTERIC TABLET PO SCH (08:41)
[2023-04-19] MEDS: ENOXAPARIN 40MG/0.4ML SYRINGE (J1650 PER 10MG) SC SCH (08:41)
[2023-04-19] MEDS: ATORVASTATIN 20 MG TAB PO SCH (08:41)
[2023-04-19] MEDS: VANICREAM MOISTURIZING SKIN CREAM 113GM TUBE TOP SCH (09:00)
[2023-04-20 04:50] VITALS: BP 117/66; TEMP 98.6; O2SAT 95
[2023-04-20] MEDS: LEVOTHYROXINE 88MCG TABLET (0.088 MG) PO SCH (05:56)
[2023-04-20] MEDS: ATORVASTATIN 20 MG TAB PO SCH (08:13)
[2023-04-20] MEDS: PANTOPRAZOLE 40MG TAB (PROTONIX) PO SCH (08:13)
[2023-04-20] MEDS: METAMUCIL (PSYLLIUM) PACKET PO SCH ×3 (08:13→20:32)
[2023-04-20] MEDS: MIRALAX *UNIT DOSE* 17GM PACKET PO SCH ×3 (08:13→20:33)
[2023-04-20] MEDS: ASPIRIN 81MG ENTERIC TABLET PO SCH (08:13)
[2023-04-20] MEDS: ENOXAPARIN 40MG/0.4ML SYRINGE (J1650 PER 10MG) SC SCH (08:14)
[2023-04-20] MEDS: VANICREAM MOISTURIZING SKIN CREAM 113GM TUBE TOP SCH (10:12)
[2023-04-21 05:00] VITALS: BP 126/70; TEMP 98.8; O2SAT 96
[2023-04-21] MEDS: LEVOTHYROXINE 88MCG TABLET (0.088 MG) PO SCH (05:37)
[2023-04-21] MEDS: METAMUCIL (PSYLLIUM) PACKET PO SCH ×4 (08:32→20:21)
[2023-04-21] MEDS: ENOXAPARIN 40MG/0.4ML SYRINGE (J1650 PER 10MG) SC SCH ×2 (08:32→08:36)
[2023-04-21] MEDS: ATORVASTATIN 20 MG TAB PO SCH (08:32)
[2023-04-21] MEDS: ASPIRIN 81MG ENTERIC TABLET PO SCH (08:32)
[2023-04-21] MEDS: VANICREAM MOISTURIZING SKIN CREAM 113GM TUBE TOP SCH (08:32)
[2023-04-21] MEDS: PANTOPRAZOLE 40MG TAB (PROTONIX) PO SCH (08:32)
[2023-04-21] MEDS: MIRALAX *UNIT DOSE* 17GM PACKET PO SCH ×4 (08:32→20:21)
[2023-04-22] MEDS: LEVOTHYROXINE 88MCG TABLET (0.088 MG) PO SCH (05:28)
[2023-04-22 05:33] VITALS: BP 128/71; TEMP 98.1; O2SAT 94
[2023-04-22] MEDS: PANTOPRAZOLE 40MG TAB (PROTONIX) PO SCH (08:12)
[2023-04-22] MEDS: ATORVASTATIN 20 MG TAB PO SCH (08:12)
[2023-04-22] MEDS: ENOXAPARIN 40MG/0.4ML SYRINGE (J1650 PER 10MG) SC SCH (08:12)
[2023-04-22] MEDS: ASPIRIN 81MG ENTERIC TABLET PO SCH (08:12)
[2023-04-22] MEDS: VANICREAM MOISTURIZING SKIN CREAM 113GM TUBE TOP SCH (08:12)
[2023-04-22] MEDS: MIRALAX *UNIT DOSE* 17GM PACKET PO SCH ×3 (08:13→20:10)
[2023-04-22] MEDS: METAMUCIL (PSYLLIUM) PACKET PO SCH ×3 (08:13→20:09)
[2023-04-23 05:19] VITALS: BP 133/70; TEMP 98.2; O2SAT 99
[2023-04-23] MEDS: LEVOTHYROXINE 88MCG TABLET (0.088 MG) PO SCH (05:26)
[2023-04-23] MEDS: ATORVASTATIN 20 MG TAB PO SCH (08:28)
[2023-04-23] MEDS: PANTOPRAZOLE 40MG TAB (PROTONIX) PO SCH (08:28)
[2023-04-23] MEDS: METAMUCIL (PSYLLIUM) PACKET PO SCH ×3 (08:28→21:00)
[2023-04-23] MEDS: ENOXAPARIN 40MG/0.4ML SYRINGE (J1650 PER 10MG) SC SCH (08:28)
[2023-04-23] MEDS: ASPIRIN 81MG ENTERIC TABLET PO SCH (08:28)
[2023-04-23] MEDS: MIRALAX *UNIT DOSE* 17GM PACKET PO SCH ×3 (08:28→21:00)
[2023-04-23] MEDS: VANICREAM MOISTURIZING SKIN CREAM 113GM TUBE TOP SCH (08:29)
[2023-04-24 04:28] VITALS: BP 111/63; TEMP 98.2; O2SAT 94
[2023-04-24] MEDS: LEVOTHYROXINE 88MCG TABLET (0.088 MG) PO SCH (05:52)
[2023-04-24] MEDS: PANTOPRAZOLE 40MG TAB (PROTONIX) PO SCH (08:56)
[2023-04-24] MEDS: ASPIRIN 81MG ENTERIC TABLET PO SCH (08:56)
[2023-04-24] MEDS: MIRALAX *UNIT DOSE* 17GM PACKET PO SCH ×3 (08:57→20:48)
[2023-04-24] MEDS: ATORVASTATIN 20 MG TAB PO SCH (08:57)
[2023-04-24] MEDS: ENOXAPARIN 40MG/0.4ML SYRINGE (J1650 PER 10MG) SC SCH (08:57)
[2023-04-24] MEDS: METAMUCIL (PSYLLIUM) PACKET PO SCH ×3 (08:57→20:48)
[2023-04-24] MEDS: VANICREAM MOISTURIZING SKIN CREAM 113GM TUBE TOP SCH (08:58)
[2023-04-24] MEDS: ACETAMINOPHEN TAB 650MG DOSE (2X325MG) PO PRN (15:43)
[2023-04-25 04:50] VITALS: BP 101/67; TEMP 98.6; O2SAT 94
[2023-04-25] MEDS: LEVOTHYROXINE 88MCG TABLET (0.088 MG) PO SCH (06:23)
[2023-04-25] MEDS: ENOXAPARIN 40MG/0.4ML SYRINGE (J1650 PER 10MG) SC SCH ×2 (09:00→09:32)
[2023-04-25] MEDS: METAMUCIL (PSYLLIUM) PACKET PO SCH ×3 (09:00→19:55)
[2023-04-25] MEDS: MIRALAX *UNIT DOSE* 17GM PACKET PO SCH ×3 (09:00→19:56)
[2023-04-25] MEDS: ASPIRIN 81MG ENTERIC TABLET PO SCH (09:32)
[2023-04-25] MEDS: PANTOPRAZOLE 40MG TAB (PROTONIX) PO SCH (09:33)
[2023-04-25] MEDS: ATORVASTATIN 20 MG TAB PO SCH (09:33)
[2023-04-25] MEDS: VANICREAM MOISTURIZING SKIN CREAM 113GM TUBE TOP SCH (09:34)
[2023-04-26] MEDS: LEVOTHYROXINE 88MCG TABLET (0.088 MG) PO SCH (05:04)
[2023-04-26 05:27] VITALS: BP 133/76; TEMP 99.3; O2SAT 97
[2023-04-26] MEDS: METAMUCIL (PSYLLIUM) PACKET PO SCH ×3 (08:33→19:58)
[2023-04-26] MEDS: MIRALAX *UNIT DOSE* 17GM PACKET PO SCH ×3 (08:33→19:58)
[2023-04-26] MEDS: ATORVASTATIN 20 MG TAB PO SCH (08:45)
[2023-04-26] MEDS: PANTOPRAZOLE 40MG TAB (PROTONIX) PO SCH (08:45)
[2023-04-26] MEDS: ASPIRIN 81MG ENTERIC TABLET PO SCH (08:45)
[2023-04-26] MEDS: ENOXAPARIN 40MG/0.4ML SYRINGE (J1650 PER 10MG) SC SCH (08:46)
[2023-04-26] MEDS: VANICREAM MOISTURIZING SKIN CREAM 113GM TUBE TOP SCH (08:57)
[2023-04-27 04:41] VITALS: BP 133/77; TEMP 97.9; O2SAT 96
[2023-04-27] MEDS: LEVOTHYROXINE 88MCG TABLET (0.088 MG) PO SCH (05:32)
[2023-04-27] MEDS: ATORVASTATIN 20 MG TAB PO SCH (08:58)
[2023-04-27] MEDS: ASPIRIN 81MG ENTERIC TABLET PO SCH (08:58)
[2023-04-27] MEDS: PANTOPRAZOLE 40MG TAB (PROTONIX) PO SCH (08:59)
[2023-04-27] MEDS: ENOXAPARIN 40MG/0.4ML SYRINGE (J1650 PER 10MG) SC SCH (09:00)
[2023-04-27] MEDS: MIRALAX *UNIT DOSE* 17GM PACKET PO SCH ×3 (09:00→19:28)
[2023-04-27] MEDS: METAMUCIL (PSYLLIUM) PACKET PO SCH ×3 (09:00→19:17)
[2023-04-27] MEDS: VANICREAM MOISTURIZING SKIN CREAM 113GM TUBE TOP SCH (09:01)
[2023-04-28 04:42] VITALS: BP 125/61; TEMP 97.7; O2SAT 96
[2023-04-28] MEDS: LEVOTHYROXINE 88MCG TABLET (0.088 MG) PO SCH (05:13)
[2023-04-28] MEDS: MIRALAX *UNIT DOSE* 17GM PACKET PO SCH ×3 (08:08→21:41)
[2023-04-28] MEDS: METAMUCIL (PSYLLIUM) PACKET PO SCH ×3 (08:08→19:23)
[2023-04-28] MEDS: ENOXAPARIN 40MG/0.4ML SYRINGE (J1650 PER 10MG) SC SCH (08:09)
[2023-04-28] MEDS: VANICREAM MOISTURIZING SKIN CREAM 113GM TUBE TOP SCH (08:13)
[2023-04-28] MEDS: PANTOPRAZOLE 40MG TAB (PROTONIX) PO SCH (08:13)
[2023-04-28] MEDS: ASPIRIN 81MG ENTERIC TABLET PO SCH (08:13)
[2023-04-28] MEDS: ATORVASTATIN 20 MG TAB PO SCH (08:13)
[2023-04-28] MEDS: diphenhydrAMINE CREAM 30GM TOP PRN (21:41)
[2023-04-29 04:30] VITALS: BP 156/80; TEMP 98.1; O2SAT 98
[2023-04-29] MEDS: LEVOTHYROXINE 88MCG TABLET (0.088 MG) PO SCH (05:32)
[2023-04-29] MEDS: PANTOPRAZOLE 40MG TAB (PROTONIX) PO SCH (08:14)
[2023-04-29] MEDS: METAMUCIL (PSYLLIUM) PACKET PO SCH (08:14)
[2023-04-29] MEDS: ASPIRIN 81MG ENTERIC TABLET PO SCH (08:14)
[2023-04-29] MEDS: ATORVASTATIN 20 MG TAB PO SCH (08:14)
[2023-04-29] MEDS: MIRALAX *UNIT DOSE* 17GM PACKET PO SCH (08:14)
[2023-04-29] MEDS: ENOXAPARIN 40MG/0.4ML SYRINGE (J1650 PER 10MG) SC SCH (08:15)
[2023-04-29] MEDS: diphenhydrAMINE CREAM 30GM TOP PRN (08:15)
[2023-04-29] MEDS: VANICREAM MOISTURIZING SKIN CREAM 113GM TUBE TOP SCH (09:00)
== END 2023-04-29 11:45 | disposition other institution (70) ==
LOC: M ED 12:42 → EDBD 12:42 → INTOOBSV 18:58 → M ED INP 18:58 → ENRESERV 19:50 → M MSPAV 21:00
PROVIDERS: ADMIT Family Medicine; ATTEND Student in an Organized Health Care Education/Training Program
DX: R55 Syncope and collapse (principal); R29.6 Repeated falls; I10 Essential (primary) hypertension; Z85.42 Personal history of malignant neoplasm of other parts of uterus; D72.829 Elevated white blood cell count, unspecified; R51.9 Headache, unspecified; K59.00 Constipation, unspecified; D64.9 Anemia, unspecified; Z86.73 Personal history of transient ischemic attack (TIA), and cerebral infarction without residual deficits; E03.9 Hypothyroidism, unspecified; Z79.899 Other long term (current) drug therapy; Z79.82 Long term (current) use of aspirin; Z88.0 Allergy status to penicillin; Z91.013 Allergy to seafood; Z88.5 Allergy status to narcotic agent; Z88.1 Allergy status to other antibiotic agents
CPT/HCPCS: 36415; 70450; 70496; 70544; 70551; 71045; 72125; 73502; 74018; 74177; 80048; 80053; 80307; 81001; 82077; 82607; 82728; 82746; 83550; 83605; 83690; 83735; 84439; 84443; 85025; 85027; 87086; 87631; 87635; 93005; 93041; 93306; 93880; 94760; 96361; 96374; 96375; 97116; 97161; 97165; 97168; 97530; 97535; 99285; G0378; J1200; J1650; J1885; J2405; Q9967